=== PATIENT | female | born 1945 | race American Indian/Alaskan Native ===

== ENCOUNTER 2016-11-28 09:23 | Outpatient (CLI) | payer MEDICARE ==
--- NOTE | 2016-11-28 10:34 | Mammography Report ---
Screening mammogram: Routine views compared to prior studies dating back to 2013. There is an intermediate fibroglandular pattern bilaterally. There is a focal asymmetry in the anteromedial right breast. A somewhat thick linear asymmetry is identified in the medial left breast only in the CC projection. Neither of these is identified on prior exams. The remainder of the exam bilaterally is otherwise unchanged. CAD used. Impression: New bilateral asymmetries. Recommendation: Compression imaging bilaterally with ultrasound as needed. BI-RADS CATEGORY: 0 = Needs additional imaging evaluation ACR BI-RADS MAMMOGRAPHIC CODES: 0 = Needs additional imaging evaluation; 1 = Negative; 2 = Benign; 3 = Probably benign; 4 = Suspicious; 5 = Malignant; 6 = Known biopsy-proven malignancy COMMENT: 1. Dense breast tissue, i.e., adenosis, fibrocystic changes, etc., may obscure an underlying neoplasm. 2. Approximately 10% of cancers are not detected with mammography. 3. A negative mammography report should not delay biopsy if a clinically suspicious mass is present.
== END 2016-11-28 09:24 | disposition home or self-care (01) ==
LOC: MAMMO 09:23
PROVIDERS: ATTEND Obstetrics & Gynecology
DX: Z12.31 Encounter for screening mammogram for malignant neoplasm of breast (principal)
CPT/HCPCS: 77067; G0202

== ENCOUNTER 2017-02-06 10:19 | Outpatient (CLI) | payer MEDICARE ==
--- NOTE | 2017-02-12 10:02 | Mammography Report ---
RIGHT DIGITAL DIAGNOSTIC MAMMOGRAM : 02/06/17 10:19:00 CLINICAL: Recalled for asymmetry. COMPARISON:11/28/16 screening FINDINGS: ML and spot compression MLO and the views were performed and a lower inner focal asymmetry persists on all views. Ultrasound of the right breast demonstrated a solid oval irregular hypoechoic mass at 4 o'clock 2 cm from the nipple. It measures 8 x 4 x 4 mm and correlates with the mammographic density. It produces mild shadowing. IMPRESSION: A suspicious 8mm solid right breast mass at 4 o'clock 2 cm from the nipple. Recommend ultrasound guided needle core biopsy. BI-RADS CATEGORY: 4--Suspicious I discussed the findings and my recommendation of needle core biopsy of the right breast with the patient at the time of the examination. BI-RADS MAMMOGRAPHIC CODES: 0 = Needs additional imaging evaluation; 1 = Negative; 2 = Benign; 3 = Probably benign; 4 = Suspicious; 5 = Malignant; 6 = Known biopsy-proven malignancy COMMENT: 1. Dense breast tissue, i.e., adenosis, fibrocystic changes, etc., may obscure an underlying neoplasm. 2. Approximately 10% of cancers are not detected with mammography. 3. A negative mammography report should not delay biopsy if a clinically suspicious mass is present. COMMENT: Patient follow-up letters are generated via our [employer] application.
== END 2017-02-06 10:20 | disposition home or self-care (01) ==
LOC: MAMMO 10:19
PROVIDERS: ATTEND Obstetrics & Gynecology
DX: Z53.9 Procedure and treatment not carried out, unspecified reason (principal)
CPT/HCPCS: 76642; G0206

== ENCOUNTER 2017-03-24 07:21 | Outpatient (CLI) | payer MEDICARE ==
--- NOTE | 2017-03-24 09:53 | Ultrasound Report ---
VACUUM ASSISTED ULTRASOUND GUIDED NEEDLE CORE BIOPSY WITH CLIP PLACEMENT RIGHT BREAST: 03/24/17 07:21:00 CLINICAL: Right breast mass. COMPARISON :02/06/17 FINDINGS: The procedure was explained to the patient and informed consent was obtained. Ultrasound demonstrated the previously described solid hypoechoic mass at 5 o'clock at the edge of the areola. The skin was prepped with Betadine and anesthetized with 1% lidocaine. Vacuum-assisted needle core biopsy was performed through a small dermatotomy using ultrasound guidance, 2% lidocaine with epinephrine for deep anesthesia and a 10-gauge Mammotome biopsy probe. Multiple cores were obtained and placed in formalin. An 11-gauge Mammostar barbell shape clip was deployed within the mass. Hemostasis was achieved with minimal pressure and a sterile dressing was applied. The patient tolerated the procedure well and there were no apparent complications. A two view mammogram demonstrated concordant clip placement. The patient left the department in good condition and was given instructions for wound care and follow up. IMPRESSION: Uncomplicated vacuum-assisted ultrasound core biopsy and clip placement right breast.
--- NOTE | 2017-03-24 09:54 | Mammography Report ---
RIGHT DIGITAL DIAGNOSTIC MAMMOGRAM: 03/24/17 07:21:00 CLINICAL: For clip placement immediately status post ultrasound biopsy. COMPARISON:02/06/17 FINDINGS: A biopsy clip is now identified within the retroareolar mass at 5 o'clock. IMPRESSION: Concordant clip placement status post ultrasound biopsy. BI-RADS CATEGORY: 4--Suspicious Pathology pending.
== END 2017-03-24 07:22 | disposition home or self-care (01) ==
LOC: EDBD → SPVWC 07:21
PROVIDERS: ATTEND Obstetrics & Gynecology
DX: C50.311 Malignant neoplasm of lower-inner quadrant of right female breast (principal); Z17.0 Estrogen receptor positive status [ER+]
CPT/HCPCS: 88305; 88342; 88361

== ENCOUNTER 2017-04-17 09:24 | Outpatient (CLI) | payer MEDICARE ==
--- NOTE | 2017-04-17 15:54 | Mammography Report ---
BONE DEXA:04/17/17 09:24:00 CLINICAL: Postmenopausal. No comparison. TECHNIQUE: Two site bone DEXA performed on an Hologic scanner. FINDINGS: The average BMD of the lumbar spine L1-L4 is 1.050g/cm squared with a T-score of -0.9 and a Z-score of +1.7. The average BMD of the left hip is 0.916g/cm squared with a T-score of -0.7 and a Z-score of +0.5. The left femoral neck BMD is 0.656g/cm squared with a T score of -2.1 and a Z score of -0.5 IMPRESSION: 1. WHO classification: Normal with average fracture risk based on lumbar spine measurements. 2. WHO classification: Osteopenia with increased fracture risk based on left femoral neck measurements. RECOMMENDATION: Clinical correlation and routine screening. DEFINITIONS: BMD = Bone Mineral Density T-score = BMD related to mean peak bone mass of young adult (mean expressed in Standard Deviation) Z-score = Age matched BMD expressed in SD World Health Organization (WHO) Diagnostic Criteria Normal T-score > -1 SD Osteopenia T-score between -1 and -2.4 SD Osteoporosis T-score -2.5 SD or below NOTE: BMD is not the only risk factor for fracture. One should also consider factors such as the patient's age, risk of falling, previous osteoporotic fracture, family history of osteoporotic fractures, current smoker, and low body weight. Z-scores are not calculated if >80 years of age.
== END 2017-04-17 09:25 | disposition home or self-care (01) ==
LOC: EDBD → SPVWC 09:24
PROVIDERS: ATTEND Internal Medicine Hematology & Oncology
DX: M85.852 Other specified disorders of bone density and structure, left thigh (principal); C50.311 Malignant neoplasm of lower-inner quadrant of right female breast; Z78.0 Asymptomatic menopausal state
CPT/HCPCS: 77080

== ENCOUNTER 2017-04-22 06:18 | Day surgery (SDC) | payer MEDICARE ==
[2017-04-21 10:55] LABS: Basophils # (Auto) 0.1 K/mm3 (0.0-0.1); Eosinophils # (Auto) 0.1 K/mm3 (0.0-0.4); Eosinophils % (Auto) 1.6 % (0.0-4.3); Hematocrit 39.7 % (30.3-42.9); Hemoglobin 13.2 gm/dl (10.1-14.3); Lymphocytes # (Auto) 3.7 K/mm3 (1.2-5.4); Lymphocytes % (Auto) 42.5 % (13.4-35.0); Mean Corpuscular HGB Conc 33 % (30-34); Mean Corpuscular Hemoglobin 33 pg (28-32); Mean Corpuscular Volume 100 fl (79-97); Monocytes # (Auto) 0.6 K/mm3 (0.0-0.8); Platelet Count 297 K/mm3 (140-440); Red Blood Count 3.97 M/mm3 (3.65-5.03); Red Cell Distribution Width 14.7 % (13.2-15.2)
--- NOTE | 2017-04-21 11:01 | Anesthesia Consultation ---
Anesthesia Consult and Med Hx Date of service: 04/21/17 - Airway Anesthetic Teeth Evaluation: Edentulous ROM Head & Neck: Adequate Mental/Hyoid Distance: Adequate Mallampati Class: Class I Intubation Access Assessment: Good - Pulmonary Exam CTA: Yes - Cardiac Exam Cardiac Exam: RRR - Pre-Operative Health Status ASA Pre-Surgery Classification: ASA3 Proposed Anesthetic Plan: General - Pulmonary Hx Smoking: Yes (FORMER FOR OVER 20 YEARS, QUIT 2002) - Cardiovascular System Hx Hypertension: Yes (2012) - Central Nervous System Hx Psychiatric Problems: No - Endocrine Hx Non-Insulin Dependent Diabetes: Yes - Other Systems Hx Alcohol Use: Yes (OCCAS) Hx Substance Use: No Hx Cancer: Yes
[2017-04-21 11:14] LABS: BUN/Creatinine Ratio 10; Blood Urea Nitrogen 9 mg/dL (7-17); Calcium 9.8 mg/dL (8.4-10.2); Hemolysis Index 2
--- NOTE | 2017-04-21 11:22 | XRay Report ---
ROUTINE CHEST, TWO VIEWS: HISTORY: Preoperative evaluation. The trachea, heart, mediastinal contour, lung montez and bony thorax are unremarkable. IMPRESSION: No acute cardiopulmonary process identified.
[~2017-04-22 06:18] MED LIST: NACL 0.9% IR ONE
[2017-04-22] MEDS ORDERED: NACL BACTERIOSTATIC INFILTRATI ONE (06:44)
--- NOTE | 2017-04-22 07:17 | Anesthesia Day of Surgery ---
Anesthesia Day of Surgery - Day of Surgery Patient Examined: Yes Patient H&P Reviewed: Yes Patient is NPO: Yes
[2017-04-22] MEDS ORDERED: XYLOCAINE 1% 20 mL ONE (07:42)
[2017-04-22] MEDS ORDERED: PEPCID IV NR (08:00)
[2017-04-22] MEDS ORDERED: NACL 0.9% 1000 ML 1,000 ML IV SCH (08:00)
[2017-04-22] MEDS ORDERED: ANCEF/STERILE WATER 2 GM/20 ML IV NR (08:00)
[2017-04-22] MEDS ORDERED: VERSED IV NR (08:00)
[2017-04-22] MEDS ORDERED: SUBLIMAZE IV PRN (08:12)
[2017-04-22] MEDS ORDERED: ZOFRAN IV PRN (08:12)
[2017-04-22] MEDS ORDERED: DILAUDID IV PRN (08:12)
--- NOTE | 2017-04-22 08:22 | Mammography Report ---
Right breast needle localization: Mammographic grid technique utilized. The patient presents with a marker in the inferior breast. The area was localized. 1% lidocaine used for local anesthesia followed by introduction of a 3 cm Bronson needle inferiorly confirmed in position by mammography. The needle was replaced by a localizing wire with additional confirmation with mammography. No complication encountered.
[2017-04-22] MEDS ORDERED: MARCAINE 0.5% 30 ML INFILTRATI ONE (09:56)
--- NOTE | 2017-04-22 10:29 | Procedure Note ---
Date of procedure: 04/22/17 Pre-op diagnosis: rt. breast lesion Post-op diagnosis: same Procedure: needle loc. Findings: n/a Anesthesia: local Surgeon: RUBIN FOY Estimated blood loss: none Pathology: none Condition: stable (surgery)
[2017-04-22] MEDS ORDERED: ePHEDrine SULFATE ONE (10:45)
[2017-04-22] MEDS ORDERED: XYLOCAINE MPF 2% ONE (10:48)
[2017-04-22] MEDS ORDERED: SUBLIMAZE ONE (10:48)
[2017-04-22] MEDS ORDERED: DIPRIVAN 10 MG/ML IV ONE (10:49)
[2017-04-22] MEDS ORDERED: ZOFRAN ONE (10:50)
[2017-04-22] MEDS ORDERED: ZEMURON IV ONE (10:50)
[2017-04-22] MEDS ORDERED: DILAUDID ONE (10:50)
[2017-04-22] MEDS ORDERED: ROBINUL ONE (11:28)
[2017-04-22] MEDS ORDERED: NEOSTIGMINE ONE (11:28)
--- NOTE | 2017-04-22 11:41 | Mammography Report ---
Operative specimen mammogram: A single tissue specimen is submitted that includes the targeted marker and localizing wire.
[2017-04-22] MEDS ORDERED: NACL 0.9% IR ONE (11:48)
--- NOTE | 2017-04-22 12:16 | Operative Report ---
Operative Report Operative Report: Date of Service: April 22, 2017 Preoperative diagnosis: Right breast cancer of the lower inner quadrant Postoperative diagnosis: Same Procedure: Right needle localization partial mastectomy of the lower inner quadrant and SLNB Surgeon: Meli Mendoza MD Pantograph Engraver: Ashley Kingsley MD Anesthesia: General Findings: Right wire and clip present within radiograph specimen; 3 SLNs Complications: None EBL: Minimal Disposition: PACU in good condition Indications for operative procedure: This is a 71 year old lady with newly diagnosed right breast cancer of the lower inner quadrant, Stage I [id number] ER/ KS positive. Recommendations are to proceed with breast conservation. Patient wished to proceed with breast conservation. Procedure in detail: The patient was taken to radiology for wire placement for localization of known area of cancer. Patient was then taken to the operating room. Gen. anesthesia was administered. The right nipple was injected with radioisotope. The right breast and axilla were prepped and draped in the normal sterile operative fashion. The wire was identified. Timeout was performed. Gamma probe was inserted into the axilla. The area of hot spot was identified. A right axillary incision was made with a 15 blade knife with dissection taken down to the subcutaneous tissues. The axillary fascia was opened with the Bovie cautery. 3 SLNS were identified. All remaining counts were less than 10% of the highest count. Lymph nodes were sent to pathology for permanent processing. Hemostasis was obtained in the left axillary cavity. Axillary cavity was appropriately irrigated and suctioned. Hemostasis was noted. Axillary fascia was approximated and closed using interrupted 3-0 Vicryl and the skin brought together and closed using a running 4-0 Monocryl followed by skin affix. Attention was then taken towards the right breast. A caudal periareolar breast incision was made with a 15 blade knife and dissection taken down to subcutaneous tissues. First began raising of the superior flap with dissection take down to the pectoralis muscle, followed by raising of the medial flap, lateral flap and inferior flap with wire removed, with all flaps were taken down to the pectoralis muscle. The breast area of concern was appropriately removed posteriorly from the pectoralis muscle with the aid of the Bovie cautery. The wire was not encountered. Specimen was marked and then sent to pathology and radiology; radiograph specimen with wire and clip present. Breast cavity was irrigated and hemostasis was obtained. Then proceeded with oncoplastic closure given breast cavity defect. The posterior breast tissues were mobilized and then approximated with interrupted 3-0 Vicryl. The posterior deep breast tissues were approximated and closed using interrupted 3-0 Vicryl. The subcutaneous tissues were approximated and closed using interrupted 3-0 Vicryl followed by closing of the skin with a running 4-0 Monocryl and skin affix. The patient tolerated surgery very well and she was awaken from anesthesia without any complication and transported to PACU in good condition.
[2017-04-22 13:44] VITALS: BP 165/80
== END 2017-04-22 13:55 | disposition home or self-care (01) ==
LOC: OR 06:18 → EDBD 13:45 → OR 13:55
PROVIDERS: ATTEND Surgery
DX: C50.311 Malignant neoplasm of lower-inner quadrant of right female breast (principal); D05.11 Intraductal carcinoma in situ of right breast; I10 Essential (primary) hypertension; E11.9 Type 2 diabetes mellitus without complications; Z17.0 Estrogen receptor positive status [ER+]; Z98.890 Other specified postprocedural states; Z87.891 Personal history of nicotine dependence; Z88.6 Allergy status to analgesic agent
CPT/HCPCS: 19281; 19301; 36415; 38525; 71046; 76098; 78800; 80048; 82962; 85025; 88307; 88342; A9541; J0690; J1170; J2250; J2405; J2704; J2710; J3010; J7030; 88333

== ENCOUNTER 2017-05-20 05:59 | Day surgery (SDC) | payer MEDICARE ==
[2017-05-20] MEDS ORDERED: ANCEF/STERILE WATER 2 GM/20 ML IV NR (06:00)
[2017-05-20] MEDS ORDERED: NACL BACTERIOSTATIC INFILTRATI ONE (06:44)
--- NOTE | 2017-05-20 07:34 | Anesthesia Day of Surgery ---
Anesthesia Day of Surgery - Day of Surgery Patient Examined: Yes Patient H&P Reviewed: Yes Patient is NPO: Yes
--- NOTE | 2017-05-20 07:34 | Anesthesia Consultation ---
Anesthesia Consult and Med Hx Date of service: 05/20/17 - Airway Anesthetic Teeth Evaluation: Dentures ROM Head & Neck: Adequate Mental/Hyoid Distance: Adequate Mallampati Class: Class II Intubation Access Assessment: Good - Pulmonary Exam CTA: Yes - Cardiac Exam Cardiac Exam: No Murmur - Pre-Operative Health Status ASA Pre-Surgery Classification: ASA3 - Pulmonary Hx Smoking: Yes (STOPPED 2002) Hx Sleep Apnea: No (HOA PRE SCREEN LOW RISK) - Cardiovascular System Hx Hypertension: Yes (2012) - Central Nervous System Hx Psychiatric Problems: No - Endocrine Hx Non-Insulin Dependent Diabetes: Yes - Other Systems Hx Alcohol Use: Yes (OCCAS) Hx Substance Use: No Hx Cancer: No
[2017-05-20] MEDS ORDERED: SUBLIMAZE ONE (07:43)
[2017-05-20] MEDS ORDERED: XYLOCAINE CARDIAC IV ONE (07:43)
[2017-05-20] MEDS ORDERED: DIPRIVAN 10 MG/ML IV ONE (07:44)
[2017-05-20] MEDS ORDERED: NACL 0.9% 1000 ML 1,000 ML IV SCH (08:00)
[2017-05-20] MEDS ORDERED: PEPCID PO NR (08:00)
[2017-05-20] MEDS ORDERED: VERSED IV NR (08:00)
[2017-05-20] MEDS ORDERED: XYLOCAINE 1% 20 mL ONE (08:07)
[2017-05-20] MEDS ORDERED: MARCAINE 0.25% INFILTRATI ONE ×2 (08:07→08:26)
[2017-05-20] MEDS ORDERED: ePHEDrine SULFATE ONE (08:25)
[2017-05-20] MEDS ORDERED: XYLOCAINE 1% 20 mL INFILTRATI ONE (08:26)
[2017-05-20] MEDS ORDERED: WATER FOR IRRIG STERILE IR ONE (08:48)
[2017-05-20] MEDS ORDERED: ZOFRAN ONE (09:09)
[2017-05-20] MEDS ORDERED: NEO SYNEPHRINE/NS Syringe(OR USE) IV ONE (09:09)
[2017-05-20] MEDS ORDERED: DILAUDID IV PRN (09:23)
--- NOTE | 2017-05-20 09:23 | Short Stay Summary ---
Short Stay Documentation Date of service: 05/20/17 - History H&P: obtained from office - Allergies and Medications Current Medications: Allergies aspirin Allergy (Verified 04/14/17 15:39) Hives Home Medications Medication Instructions Recorded Confirmed Last Taken Type Diltiazem HCl [Diltiazem 24Hr ER] 120 mg PO DAILY 04/14/17 05/19/17 04/22/17 05: 00 History Losartan [Cozaar] 50 mg PO QDAY 04/14/17 05/19/17 04/22/17 05:00 History Pravastatin [Pravachol] 40 mg PO QHS 04/14/17 05/19/17 04/21/17 History metFORMIN [Glucophage] 500 mg PO QDAY 04/14/17 05/19/17 04/22/17 05:00 History HYDROcodone/APAP 5-325 [Molino 1 each PO Q6HR PRN #25 tablet 04/22/17 05/19/17 Unknown Rx 5/325] HYDROcodone/APAP 5-325 [Molino 1 each PO Q6HR PRN #20 tablet 05/20/17 Unknown Rx 5/325] Active Medications Cefazolin Sodium (Ancef/Sterile Water 2 Gm/20 Ml) 2 gm IV PREOP NR Stop: 05/20/17 23:59 Famotidine (Pepcid) 20 mg PO PREOP NR Stop: 05/20/17 15:00 Last Admin: 05/20/17 07:45 Dose: 20 mg Sodium Chloride (Nacl 0.9% 1000 Ml) 1,000 mls @ 100 mls/hr IV DIRECT SIOBHAN Last Admin: 05/20/17 06:50 Dose: 100 mls/hr Midazolam HCl (Versed) 2 mg IV PREOP NR Stop: 05/20/17 23:59 Last Admin: 05/20/17 07:45 Dose: 2 mg - Brief post op/procedure progress note Date of procedure: 05/20/17 Pre-op diagnosis: Right breast cancer of the lower inner quadrant, positive anterior margin Post-op diagnosis: same Procedure: Right breast margin revision Anesthesia: GETA Findings: Anterior margin revision Surgeon: LORIN DAVID Estimated blood loss: minimal Pathology: list (revised anterior margin) Specimen disposition: to lab Condition: stable - Disposition Condition at discharge: Good Disposition: DC- TO HOME OR SELFCARE Short Stay Discharge Plan Activity: other (no heavy lifting) Diet: regular Wound: other (keep incision clean and dry; may shower in 24 hours; do not rub or scrub incision; no baths, pools or lakes) Follow up with: BIANCA NICHOLS MD [Primary Care Provider] - 7 Days LORIN DAVID MD [Staff Physician] - 7 Days Prescriptions: HYDROcodone/APAP 5-325 [Molino 5/325] 1 each PO Q6HR PRN #20 tablet PRN Reason: Pain
--- NOTE | 2017-05-20 09:30 | Operative Report ---
Operative Report Operative Report: Date of Service: May 20, 2017 Preoperative diagnosis: Right breast cancer of the lower inner quadrant, positive anterior margin Postoperative diagnosis: Same Procedure: Right anterior margin revision Surgeon: Meli Mendoza M.D. Anesthesia: Gen. Complications: None Findings: Anterior margin revised Drains: None Estimated blood loss minimal Disposition: PACU in good condition Indications for operative procedure: This is a 72-year-old lady with newly diagnosed stage I right breast cancer of the lower inner quadrant. Patient recently underwent a right partial mastectomy with sentinel lymph node biopsy. Anterior margin of skin with 2.5 mm from DCIS and suspicious outer anterior margin close to DCIS. Additional slides obtained and findings of anterior margin less than 1 mm from DCIS. Recommendations were for right anterior margin revision. Patient wished to proceed with the above procedure. Procedure in detail: Patient was taken to the operating room and was laid supine. Gen. patient was administered. Right breast incision was noted. Right breast was prepped and drapped in the normal sterile operative fashion. An incision was made to include skin of prior incision with a 15 blade knife and dissection taken down to subcutaneous tissues and then down posteriorly to the pectoralis muscle. Aneterio margin was appropriately revised and marked and sent to pathology. Hemostasis was obtained. The breast cavity was anesthetized with 1% lidocaine mixed with quarter percent oMarcaine. She tolerated the procedure very well and was awakened from anesthesia without any complications and transported PACU in good condition.
[2017-05-20] MEDS ORDERED: NORCO 5/325 PO NR (09:46)
[2017-05-20] MEDS ORDERED: NORCO 5/325 ONE (09:47)
[2017-05-20 11:50] VITALS: BP 142/68
== END 2017-05-20 10:40 | disposition home or self-care (01) ==
LOC: OR 05:59
PROVIDERS: ATTEND Surgery
DX: C50.311 Malignant neoplasm of lower-inner quadrant of right female breast (principal); E11.9 Type 2 diabetes mellitus without complications; I10 Essential (primary) hypertension; Z87.891 Personal history of nicotine dependence; Z79.899 Other long term (current) drug therapy
CPT/HCPCS: 19301; 82962; 88307; J0690; J1170; J2001; J2250; J2370; J2405; J2704; J3010

== ENCOUNTER 2017-11-10 10:32 | Outpatient (CLI) | payer MEDICARE ==
--- NOTE | 2017-11-10 11:18 | Mammography Report ---
BILATERAL DIGITAL DIAGNOSTIC MAMMOGRAM WITH CAD : 11/10/17 10:32:00 CLINICAL: Breast cancer survivor status post right partial mastectomy and radiation therapy COMPARISON:11/28/16 FINDINGS: The right breast is heterogeneously dense and there are scattered fibroglandular densities in the left breast. Right central posterior benign scar. No mass, suspicious architectural distortion or suspicious calcifications. IMPRESSION: No mammographic evidence of malignancy. BI-RADS CATEGORY: 2 -- Benign RECOMMENDATION: Routine mammographic screening in one year. COMMENT: Patient follow-up letters are generated via our [employer] application.
== END 2017-11-10 10:33 | disposition home or self-care (01) ==
LOC: SPVWC 10:32
PROVIDERS: ATTEND Surgery
DX: C50.311 Malignant neoplasm of lower-inner quadrant of right female breast (principal); E78.00 Pure hypercholesterolemia, unspecified; I10 Essential (primary) hypertension; E11.9 Type 2 diabetes mellitus without complications; M19.90 Unspecified osteoarthritis, unspecified site; Z90.49 Acquired absence of other specified parts of digestive tract; Z90.12 Acquired absence of left breast and nipple; Z87.891 Personal history of nicotine dependence
CPT/HCPCS: 77066

== ENCOUNTER 2019-05-02 08:59 | Outpatient (CLI) | payer MEDICARE ==
--- NOTE | 2019-05-02 12:14 | Mammography Report ---
BONE DEXA CLINICAL: Post menopausal. COMPARISON: 04/17/2017 TECHNIQUE: 2 site bone DEXA performed on an Hologic scanner. FINDINGS: The average BMD of the lumbar spine L1-L4 is 1.086g/cm squared with a T score of -0.6 and a Z score o f +2.1. This compares to 1.050g/cm squared on the last exam and represents a +3.4 % change from the p revious baseline. The average BMD of the left hip is 0.903 g/cm squared with a T score of -0.8and a Z score of +0.5. Th is compares to 0.916 g/cm squared on the last exam and represents a -1.4 % change from the previous b aseline. The left femoral neck BMD is 0.681 g/cm squared with a T score of -1.9 and Z score of -0.3. IMPRESSION: 1. WHO classification: Normal with fracture risk based on spine measurements. 2. WHO classification Osteopenia with increased fracture risk based on left hip (femoral neck) measur ements. 3. A modest improvement in spine BMD and a modest decline in left hip BMD compared to the last exam. RECOMMENDATION: Clinical correlation and routine screening. Definitions: BMD equal bone mineral density T score = BMD related to peak bone mass of young adult (Delta expressed an standard deviation) Z score = age-matched BMD expressed in SD World health organization (WHO) diagnostic criteria Normal T score greater than equal to 1 standard deviation Osteopenia T score between -1 and -2.4 standard deviation Osteoporosis T score -2.5 standard deviation or below. Note: BMD is not the only risk factor for fracture; also consider factors such as the patient's age, risk of falling, previous osteoporotic fracture, family history of osteoporotic fractures, current sm oker and low body weight. Z scores are not calculated if greater than 80 years of age. Signer Name: Chad Watson MD Signed: 05/02/2019 12:10 PM Workstation Name: [id number]
== END 2019-05-02 09:00 | disposition home or self-care (01) ==
LOC: SPVWC 08:59
PROVIDERS: ATTEND Surgery Vascular Surgery
DX: M85.89 Other specified disorders of bone density and structure, multiple sites (principal)
CPT/HCPCS: 77080

== ENCOUNTER 2019-12-19 10:23 | Outpatient (CLI) | payer MEDICARE ==
[2019-12-19 11:13] LABS: Calcium 9.7 mg/dL (8.4-10.2)
== END 2019-12-19 10:24 | disposition home or self-care (01) ==
LOC: LAB 10:23
PROVIDERS: ATTEND Internal Medicine Nephrology
DX: I12.9 Hypertensive chronic kidney disease with stage 1 through stage 4 chronic kidney disease, or unspecified chronic kidney disease (principal); E08.29 Diabetes mellitus due to underlying condition with other diabetic kidney complication; N18.30 Chronic kidney disease, stage 3 unspecified; E87.1 Hypo-osmolality and hyponatremia; R31.9 Hematuria, unspecified; N27.0 Small kidney, unilateral; R60.9 Edema, unspecified; E83.52 Hypercalcemia
CPT/HCPCS: 36415; 80048

== ENCOUNTER 2019-12-27 10:08 | Outpatient (CLI) | payer MEDICARE, OTHER ==
--- NOTE | 2019-12-27 15:44 | Cat Scan Report ---
CT ABDOMEN AND PELVIS WITH CONTRAST INDICATION / CLINICAL INFORMATION: ABDOMINAL PAIN. TECHNIQUE: Axial CT images were obtained through the abdomen and pelvis before and after 100 cc Omni 300 IV cont r[address]. All CT scans at this location are performed using CT dose reduction for ALARA by means of auto mated exposure control. COMPARISON: Ultrasound abdomen 11/07/2015 FINDINGS: LOWER CHEST: Aortic valve calcification. Multivessel coronary artery atherosclerotic calcification. HEPATOBILIARY: No significant abnormality. PANCREAS: No significant abnormality. SPLEEN: No significant abnormality. ADRENALS: No significant abnormality. GENITOURINARY: Atrophic left kidney with multiple small renal cystic lesions some of which have atten uation greater than expected for simple cysts. Mild left perinephric fluid stranding. Largest cyst me asures up to 2.1 cm at the inferior pole. Right kidney demonstrates a 2 mm nonobstructing nephrolith. Ureters and bladder demonstrate no significant abnormality. GASTROINTESTINAL/MESENTERY: Appendix demonstrates no significant abnormality. No bowel obstruction or inflammation is identified. No free air or significant free fluid mild mesenteric haziness is presen t. RETROPERITONEUM: No significant adenopathy. REPRODUCTIVE ORGANS: 2.5 cm left adnexal cyst. VASCULAR: Severe mixed density atherosclerotic calcification without acute abnormality. Extensive low -density mural thrombus throughout the aorta and iliac vasculature. Likely hemodynamically significan t stenoses at the ostia of the celiac artery, SMA, and common hepatic artery (direct origin from the aorta). No evidence of ischemic bowel. Focal saccular outpouching of the infrarenal abdominal aorta p rojecting to the left and measuring approximately 1.8 x 1.2 cm. Underlying fusiform ectasia of the in frarenal abdominal aorta measuring up to 2.8 cm. SKELETAL SYSTEM: Diffuse degenerative change with mild anterolisthesis of L4 on L5. ADDITIONAL FINDINGS: None. IMPRESSION: 1. No acute abdominopelvic abnormality. 2. Extensive mixed density atherosclerosis with likely hemodynamically significant stenoses at the or igin of the SMA, celiac artery, and common hepatic artery as described above. 3. Atrophic left kidney with multiple small cystic lesions some of which measure greater attenuation than expected for a simple cyst. Consider further evaluation with renal ultrasound. 4. Small saccular outpouching of the infrarenal abdominal aorta. Signer Name: Camron Pelaez MD Signed: 12/27/2019 3:40 PM Workstation Name: [id number]
== END 2019-12-27 10:09 | disposition home or self-care (01) ==
LOC: CT 10:08
PROVIDERS: ATTEND Urology
DX: N28.1 Cyst of kidney, acquired (principal); N26.1 Atrophy of kidney (terminal); I25.10 Atherosclerotic heart disease of native coronary artery without angina pectoris; I70.0 Atherosclerosis of aorta; M47.816 Spondylosis without myelopathy or radiculopathy, lumbar region
CPT/HCPCS: 36415; 74170; 82565; 84520; Q9967

== ENCOUNTER 2020-11-21 11:57 | Outpatient (CLI) | payer MEDICARE ==
--- NOTE | 2020-11-21 15:16 | Mammography Report ---
DIGITAL SCREENING MAMMOGRAM WITH CAD, 11/21/2020 CLINICAL INFORMATION / INDICATION: Routine screening mammography. SCREENING MAMMO TECHNIQUE: Digital bilateral 2D mammography was obtained in the craniocaudal and mediolateral obliqu e projections. This examination was interpreted with the benefit of Computer-Aided Detection analysis . COMPARISON: 11/21/2019, 11/09/2018 FINDINGS: Breast Density: There are scattered areas of fibroglandular density. No dominant mass, suspicious calcifications, or architectural distortion in either breast. Postlumpectomy changes are noted on the right. IMPRESSION: No mammographic evidence of malignancy. Follow up recommendation: Routine yearly BI-RADS Category 2: Benign. A "normal" or negative report should not discourage follow up or biopsy of a clinically significant f inding. A written summary of these findings will be mailed to the patient. The patient will be entered into a mammography reporting system which will generate a reminder letter for the patient's next appointmen t at the appropriate interval. The [employer] recommends yearly mammograms starting at age 40 and continuing as l aden as a woman is in good health. Breast MRI is recommended for women with an approximate 20-25% or greater lifetime risk of breast cancer, including women with a strong family history of breast or ova kwesi cancer or who have been treated for Hodgkin's disease. Signer Name: Sergey Fregoso MD Signed: 11/21/2020 3:11 PM Workstation Name: [employer]
== END 2020-11-21 11:58 | disposition home or self-care (01) ==
LOC: SPVWC 11:57
PROVIDERS: ATTEND Surgery
DX: Z12.31 Encounter for screening mammogram for malignant neoplasm of breast (principal)
CPT/HCPCS: 77067

== ENCOUNTER 2021-05-29 08:53 | Outpatient (CLI) | payer MEDICARE ==
--- NOTE | 2021-05-29 11:15 | Mammography Report ---
DEXA BONE DENSITY SCAN INDICATION / CLINICAL INFORMATION: M85.89 OTHER DISORDER OF BONE DENSITY AND STRUCTURE, MULTIPLE SIT. 76 years Female COMPARISON: 05/02/2019 LUMBAR SPINE, L1-L4: - Bone mineral density (BMD) = 1.051 g/cm2. - T-score = -0.9 - Change (%) since most recent prior (if available): Decreased 3.2 RIGHT HIP not performed. LEFT HIP, NECK : - Bone mineral density (BMD) = 0.781 g/cm2. - T-score = -1.2 - Change (%) since most recent prior (if available): Decreased 1.0 IMPRESSION: 1. WHO Classification: Osteopenia. Fracture Risk: Increased. Note: 10-Year Fracture Risk (FRAX) not reported. This DEXA unit lacks FRAX functionality. BMD Reporting Guidelines (ISCD, 2015) BMD Reporting in Postmenopausal Women and in Men Age 50 and Older - T-scores are preferred. - The WHO densitometric classification is applicable. BMD Reporting in Females Prior to Menopause and in Males Younger Than Age 50 - Z-scores, not T-scores, are preferred. This is particularly important in children. - A Z-score of -2.0 or lower is defined as below the expected range for age, and a Z-score above -2.0 is within the expected range for age. - Osteoporosis cannot be diagnosed in men under age 50 on the basis of BMD alone. - The WHO diagnostic criteria may be applied to women in the menopausal transition. http://www.iscd.org/official-positions/1437-ydlm-ovkivcgg-positions-adult/ Signer Name: Joe Velazquez MD Signed: 05/29/2021 11:10 AM Workstation Name: [id number]
== END 2021-05-29 08:54 | disposition home or self-care (01) ==
LOC: SPVWC 08:53
PROVIDERS: ATTEND Internal Medicine Hematology & Oncology
DX: M85.88 Other specified disorders of bone density and structure, other site (principal)
CPT/HCPCS: 77080

== ENCOUNTER 2021-09-11 11:09 | Inpatient (IN) | payer MEDICARE ==
--- NOTE | 2021-09-11 12:42 | Emergency Department Report ---
ED General Adult HPI - General Chief complaint: Recheck/Abnormal Lab/Rx Stated complaint: SODIUM DEF/IV REQUIRED PUI?: No Source: patient Mode of arrival: Ambulatory Limitations: No Limitations - History of Present Illness Initial comments: Pt is a pleasant 76 yo that comes to ER p being called by her PCP Dr Nichols. She had routine lab work that indicated low Na. So he told her to come here. No cp NO sob no confusion/falls Pt young for stated age; ambulatory in NAD; accompanied by her son. Pt does have hx of hyponatremia in 130's -: Gradual Severity scale (0 -10): 0 Improves with: none Worsens with: none Associated Symptoms: denies other symptoms. denies: confusion, chest pain, cough, diaphoresis, fever/chills, headaches, loss of appetite, malaise, nausea/vomiting, rash, seizure, shortness of breath, syncope, weakness Treatments Prior to Arrival: none - Related Data Home Medications Medication Instructions Recorded Confirmed Last Taken Losartan [Cozaar] 50 mg PO QDAY 04/14/17 05/20/17 05/20/17 Pravastatin [Pravachol] 40 mg PO QHS 04/14/17 05/20/17 05/20/17 dilTIAZem HCl [Diltiazem 24Hr ER] 120 mg PO DAILY 04/14/17 05/20/17 05/19/17 metFORMIN [Glucophage] 500 mg PO QDAY 04/14/17 05/20/17 05/19/17 Previous Rx's Medication Instructions Recorded Last Taken Type HYDROcodone/APAP 5-325 [[place] 1 each PO Q6HR PRN #25 tablet 04/22/17 Unknown Rx 5/325] HYDROcodone/APAP 5-325 [[place] 1 each PO Q6HR PRN #20 tablet 05/20/17 Unknown Rx 5/325] Allergies Allergy/AdvReac Type Severity Reaction Status Date / Time aspirin Allergy Hives Verified 09/11/21 11:46 ED Review of Systems ROS: Stated complaint: SODIUM DEF/IV REQUIRED Other details as noted in HPI Comment: All other systems reviewed and negative ED Past Medical Hx - Past Medical History Previous Medical History?: Yes Hx Hypertension: Yes (2012) Hx Diabetes: Yes Hx Arthritis: Yes Hx HIV: No Additional medical history: hypona - Surgical History Past Surgical History?: Yes Hx Breast Surgery: Yes (BX) - Family History Family history: no significant - Social History Smoking Status: Former Smoker - Medications Home Medications: Home Medications Medication Instructions Recorded Confirmed Last Taken Type Losartan [Cozaar] 50 mg PO QDAY 04/14/17 05/20/17 05/20/17 History Pravastatin [Pravachol] 40 mg PO QHS 04/14/17 05/20/17 05/20/17 History dilTIAZem HCl [Diltiazem 24Hr ER] 120 mg PO DAILY 04/14/17 05/20/17 05/19/17 History metFORMIN [Glucophage] 500 mg PO QDAY 04/14/17 05/20/17 05/19/17 History HYDROcodone/APAP 5-325 [[place] 1 each PO Q6HR PRN #25 tablet 04/22/17 05/19/17 Unknown Rx 5/325] HYDROcodone/APAP 5-325 [[place] 1 each PO Q6HR PRN #20 tablet 05/20/17 Unknown Rx 5/325] ED Physical Exam - General Limitations: No Limitations General appearance: alert, in no apparent distress - Head Head exam: Present: atraumatic, normocephalic - Eye Eye exam: Present: normal appearance, PERRL - ENT ENT exam: Present: mucous membranes moist - Neck Neck exam: Present: normal inspection - Respiratory Respiratory exam: Present: normal lung sounds bilaterally. Absent: respiratory distress - Cardiovascular Cardiovascular Exam: Present: regular rate, normal rhythm. Absent: systolic murmur, diastolic murmur, rubs, gallop - GI/Abdominal GI/Abdominal exam: Present: soft, normal bowel sounds - Extremities Exam Extremities exam: Present: normal inspection - Back Exam Back exam: Present: normal inspection - Neurological Exam Neurological exam: Present: alert, oriented X3 - Psychiatric Psychiatric exam: Present: normal affect, normal mood - Skin Skin exam: Present: warm, dry, intact, normal color. Absent: rash ED Course Vital Signs 09/11/21 09/11/21 11:43 11:47 Temperature 98.3 F 98.3 F Pulse Rate 58 L 58 L Respiratory 18 18 Rate Blood Pressure 156/76 156/76 [Left] O2 Sat by Pulse 100 Oximetry ED Medical Decision Making - Lab Data Result diagrams: 09/11/21 12:21 09/11/21 12:21 - EKG Data -: EKG Interpreted by Ri - Radiology Data Radiology results: pending - Medical Decision Making Labs 09/11/21 09/11/21 12:21 12:21 WBC 5.3 RBC 3.95 Hgb 13.1 Hct 38.6 MCV 98 H MCH 33 H MCHC 34 RDW 14.1 Plt Count 256 Sodium 117 L* Potassium 4.2 Chloride 81.6 L Carbon Dioxide 25 Anion Gap 14 BUN 7 Creatinine 1.0 Estimated GFR > 60 BUN/Creatinine Ratio 7 Glucose 99 Calcium 9.0 Total Bilirubin 0.60 AST 17 ALT 9 Alkaline Phosphatase 65 Total Protein 7.2 Albumin 4.4 Albumin/Globulin Ratio 1.6 Vital Signs 09/11/21 09/11/21 11:43 11:47 Temperature 98.3 F 98.3 F Pulse Rate 58 L 58 L Respiratory 18 18 Rate Blood Pressure 156/76 156/76 [Left] O2 Sat by Pulse 100 Oximetry Labs noted- euvolemia on exam VSS Staffed with Dr Dick- will admit for slow Na correction. Pt and family updated; additional orders placed Staffed with Dr Brown Pt being admitted to [facility] - Differential Diagnosis hypo na Critical care attestation.: If time is entered above; I have spent that time in minutes in the direct care of this critically ill patient, excluding procedure time. ED Disposition Clinical Impression: Hyponatremia Disposition: 01 HOME / SELF CARE / HOMELESS Is pt being admited?: Yes Does the pt Need Aspirin: No Condition: Stable Referrals: BIANCA NICHOLS MD [Primary Care Provider] - 3-5 Days Time of Disposition: 14:57
[2021-09-11 13:53] LABS: Hematocrit 38.6 % (30.3-42.9); Hemoglobin 13.1 gm/dl (10.1-14.3); Mean Corpuscular HGB Conc 34 % (30-34); Mean Corpuscular Volume 98 fl (79-97); Platelet Count 256 K/mm3 (140-440); Red Blood Count 3.95 M/mm3 (3.65-5.03); Red Cell Distribution Width 14.1 % (13.2-15.2)
[2021-09-11 14:12] LABS: Alanine Aminotransferase 9 units/L (7-56); Albumin 4.4 g/dL (3.9-5); BUN/Creatinine Ratio 7; Blood Urea Nitrogen 7 mg/dL (7-17); Hemolysis Index 20
--- NOTE | 2021-09-11 15:46 | XRay Report ---
CHEST 2 VIEWS INDICATION / CLINICAL INFORMATION: sob. COMPARISON: 04/21/2017 FINDINGS: SUPPORT DEVICES: None. HEART / MEDIASTINUM: No significant abnormality. LUNGS / PLEURA: No significant pulmonary or pleural abnormality. No pneumothorax. ADDITIONAL FINDINGS: No significant additional findings. IMPRESSION: 1. No acute findings. Signer Name: Joe Velazquez MD Signed: 09/11/2021 3:41 PM Workstation Name: [id number]
--- NOTE | 2021-09-11 20:08 | History and Physical Report ---
History of Present Illness Date of examination: 09/11/21 Date of admission: 09/11/2021 Chief complaint: Generalized weakness History of present illness: 76-year-old female with history of hypertension, hyperlipidemia and T2DM comes in for generalized weakness 3 to 4 days. Patient has not been well postop, following low Solu-Medrol. Patient was normal however because of oral Lasix. Patient is not vomiting. No abdominal pain. No diarrhea. Her baseline sodium was 130. No exacerbating or relieving factors. No fever or chills. - Past Medical History --Previous Medical History?: Yes --Hypertension: Yes (2012) --Diabetes: Yes --Arthritis: Yes --Additional medical history: hypona - Surgical History --Past Surgical History?: Yes --Breast Surgery: Yes () - Family History --Family history: no significant - Social History --Smoking Status: Former Smoker - Medications Home Medications: Home Medications Medication Instructions Recorded Confirmed Last Taken Type Losartan [Cozaar] 50 mg PO QDAY 04/14/17 05/20/17 05/20/17 History Pravastatin [Pravachol] 40 mg PO QHS 04/14/17 05/20/17 05/20/17 History dilTIAZem HCl [Diltiazem 24Hr ER] 120 mg PO DAILY 04/14/17 05/20/17 05/19/17 History metFORMIN [Glucophage] 500 mg PO QDAY 04/14/17 05/20/17 05/19/17 History HYDROcodone/APAP 5-325 [[place] 1 each PO Q6HR PRN #25 tablet 04/22/17 05/19/17 Unknown Rx 5/325] HYDROcodone/APAP 5-325 [[place] 1 each PO Q6HR PRN #20 tablet 05/20/17 Unknown Rx 5/325] Review of Systems ROS: Constitutional generalized weakness HEENT no sore throat no post nasal drip no diplopia Neck no neck stiffness no lymph gland enlargement Chest and lungs no shortness of breath cough or wheezing CVS no chest pain no diaphoresis no palpitations GI no nausea no vomiting no diarrhea Genitourinary system no dysuria no flank pain Musculoskeletal system no muscle pains no joint pains [employer]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 no 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 Skin no rash no itching Psychiatric no depression no homicidal or suicidal tendencies Hematologic no lymphedema or bruising Endocrine no polydipsia no polyuria no cold intolerance no heat intolerance Medications and Allergies Allergies Allergy/AdvReac Type Severity Reaction Status Date / Time aspirin Allergy Hives Verified 09/11/21 11:46 Home Medications Medication Instructions Recorded Confirmed Last Taken Type Losartan [Cozaar] 50 mg PO QDAY 04/14/17 05/20/17 05/20/17 History Pravastatin [Pravachol] 40 mg PO QHS 04/14/17 09/12/21 05/20/17 History dilTIAZem HCl [Diltiazem 24Hr ER] 120 mg PO DAILY 04/14/17 09/12/21 05/19/17 History metFORMIN [Glucophage] 500 mg PO BID 04/14/17 09/12/21 05/19/17 History HYDROcodone/APAP 5-325 [[place] 1 each PO Q6HR PRN #25 tablet 04/22/17 05/19/17 Unknown Rx 5/325] HYDROcodone/APAP 5-325 [[place] 1 each PO Q6HR PRN #20 tablet 05/20/17 Unknown Rx 5/325] Anastrozole [Arimidex] 1 mg PO DAILY 09/12/21 09/12/21 Unknown History Metoprolol Xl [Metoprolol 50 mg PO BID 09/12/21 09/12/21 Unknown History SUCCINATE ER TAB] hydrALAZINE [Apresoline TAB] 25 mg PO BID 09/12/21 09/12/21 Unknown History Exam - Constitutional Vitals: Temp Pulse Resp BP Pulse Ox 98.3 F 58 L 18 156/76 100 09/11/21 11:47 09/11/21 11:47 09/11/21 11:47 09/11/21 11:47 09/11/21 11:43 General appearance: Present: no acute distress, well-nourished - EENT Eyes: Present: PERRL ENT: hearing intact, clear oral mucosa - Neck Neck: Present: supple, normal ROM - Respiratory Respiratory effort: normal Respiratory: bilateral: CTA - Cardiovascular Heart rate: 76 Rhythm: regular Heart Sounds: Present: S1 & S2. Absent: rub, click - Extremities Extremities: pulses symmetrical, No edema Peripheral Pulses: within normal limits - Abdominal General gastrointestinal: Present: soft, non-tender, non-distended, normal bowel sounds Female genitourinary: Present: normal - Integumentary Integumentary: Present: clear, warm, dry - Musculoskeletal Musculoskeletal: gait normal, strength equal bilaterally - Psychiatric Psychiatric: appropriate mood/affect, intact judgment & insight - Neurologic Neurologic: CNII-XII intact, moves all extremities Results - Labs CBC & Chem 7: 09/11/21 12:21 09/11/21 12:21 Labs: Laboratory Last Values WBC 5.3 K/mm3 (4.5-11.0) 09/11/21 12:21 RBC 3.95 M/mm3 (3.65-5.03) 09/11/21 12:21 Hgb 13.1 gm/dl (10.1-14.3) 09/11/21 12:21 Hct 38.6 % (30.3-42.9) 09/11/21 12:21 MCV 98 fl (79-97) H 09/11/21 12:21 MCH 33 pg (28-32) H 09/11/21 12:21 MCHC 34 % (30-34) 09/11/21 12:21 RDW 14.1 % (13.2-15.2) 09/11/21 12:21 Plt Count 256 K/mm3 (140-440) 09/11/21 12:21 Sodium 117 mmol/L (137-145) L* 09/11/21 12:21 Potassium 4.2 mmol/L (3.6-5.0) 09/11/21 12:21 Chloride 81.6 mmol/L (98-107) L 09/11/21 12:21 Carbon Dioxide 25 mmol/L (22-30) 09/11/21 12:21 Anion Gap 14 mmol/L 09/11/21 12:21 BUN 7 mg/dL (7-17) 09/11/21 12:21 Creatinine 1.0 mg/dL (0.6-1.2) 09/11/21 12:21 Estimated GFR > 60 ml/min 09/11/21 12:21 BUN/Creatinine Ratio 7 % 09/11/21 12:21 Glucose 99 mg/dL (65-100) 09/11/21 12:21 Calcium 9.0 mg/dL (8.4-10.2) 09/11/21 12:21 Total Bilirubin 0.60 mg/dL (0.1-1.2) 09/11/21 12:21 AST 17 units/L (5-40) 09/11/21 12:21 ALT 9 units/L (7-56) 09/11/21 12:21 Alkaline Phosphatase 65 units/L (35-129) 09/11/21 12:21 Total Protein 7.2 g/dL (6.3-8.2) 09/11/21 12:21 Albumin 4.4 g/dL (3.9-5) 09/11/21 12:21 Albumin/Globulin Ratio 1.6 % 09/11/21 12:21 Short CBC 09/11/21 Range/Units 12:21 WBC 5.3 (4.5-11.0) K/mm3 Hgb 13.1 (10.1-14.3) gm/dl Hct 38.6 (30.3-42.9) % Plt Count 256 (140-440) K/mm3 BMP 09/11/21 12:21 Sodium 117 L* Potassium 4.2 Chloride 81.6 L Carbon Dioxide 25 BUN 7 Creatinine 1.0 Glucose 99 Calcium 9.0 Liver Function 09/11/21 Range/Units 12:21 Total Bilirubin 0.60 (0.1-1.2) mg/dL AST 17 (5-40) units/L ALT 9 (7-56) units/L Alkaline Phosphatase 65 (35-129) units/L Albumin 4.4 (3.9-5) g/dL - Imaging and Cardiology Chest x-ray: report reviewed (No acute findings) Assessment and Plan Advance Directives: Yes (Full code) - Patient Problems (1) Hyponatremia Current Visit: Yes Status: Acute Plan to address problem: Etiology unclear SIADH in the differential diagnosis Nephrology consult requested Urine osmolarity Serum osmolarity Nephrology consult requested IV normal saline for now (2) Hypertension Current Visit: Yes Status: Chronic Qualifiers: Hypertension type: primary hypertension Qualified Code(s): I10 - Essential (primary) hypertension Plan to address problem: Continue home antihypertensives and adjust medications (3) T2DM (type 2 diabetes mellitus) Current Visit: Yes Status: Chronic Qualifiers: Diabetes mellitus half-way insulin use: without long term care phlebotomist use Plan to address problem: Continue metformin and coverage with sliding scale--Humalog Check hemoglobin A1c (4) Hyperlipidemia Current Visit: Yes Status: Chronic Qualifiers: Hyperlipidemia type: mixed hyperlipidemia Qualified Code(s): E78.2 - Mixed hyperlipidemia Plan to address problem: Continue statins (5) DVT prophylaxis Current Visit: Yes Status: Acute Plan to address problem: On heparin GI prophylaxis (6) Advance care planning Current Visit: Yes Status: Acute Plan to address problem: Disease education conducted care plan discussed, diagnosis discussed and prognosis discussed. Patient acknowledged understanding with care plan +30 minutes.
[2021-09-11] MEDS ORDERED: MORPHINE 2 MG/1 ML INJ IV PRN (20:12)
[2021-09-11] MEDS ORDERED: HYDROmorphone 0.5 MG/0.5 ML INJ IV PRN (20:12)
[2021-09-11] MEDS ORDERED: ONDANSETRON 4 MG/2 ML INJ IV PRN (20:12)
[2021-09-11] MEDS ORDERED: METOCLOPRAMIDE 10 MG/2 ML INJ IV PRN (20:12)
[2021-09-11] MEDS: HEPARIN 5,000 UNIT/1 ML VIAL SUB-Q SCH (21:37)
[2021-09-11] MEDS: LOSARTAN 50 MG TAB PO SCH (21:40)
[2021-09-11] MEDS: PRAVASTATIN 40 MG TAB PO SCH (21:42)
[2021-09-11] MEDS: dilTIAZem CD 120 MG CAP PO SCH (21:42)
[2021-09-11 23:20] LABS: Bilirubin,Urine Negative (Negative); Color,Urine Colorless (Yellow)
[2021-09-11 23:21] LABS: Blood,Urine Moderate (Negative); PH,Urine 7.5 (5.0-7.0); Urobilinogen,Urine 0.2 mg/dL (<2.0)
[2021-09-11 23:22] LABS: Bacteria,Urine 1+ /HPF (Negative)
[2021-09-11 23:51] LABS: Creatinine,Urine 84.4 mg/dL (0.1-20.0)
[2021-09-12] MEDS: SODIUM CHLORIDE 0.9% 1000 ML 1,000 ML IV SCH ×3 (01:03→21:22)
[2021-09-12 07:49] LABS: Basophils # (Auto) 0.1 K/mm3 (0.0-0.1); Eosinophils # (Auto) 0.1 K/mm3 (0.0-0.4); Eosinophils % (Auto) 1.6 % (0.0-4.3); Hematocrit 33.9 % (30.3-42.9); Hemoglobin 11.7 gm/dl (10.1-14.3); Lymphocytes # (Auto) 3.2 K/mm3 (1.2-5.4); Lymphocytes % (Auto) 50.2 % (13.4-35.0); Mean Corpuscular HGB Conc 35 % (30-34); Mean Corpuscular Volume 97 fl (79-97); Monocytes # (Auto) 0.7 K/mm3 (0.0-0.8); Monocytes % (Auto) 11.5 % (0.0-7.3); Platelet Count 221 K/mm3 (140-440); Red Blood Count 3.49 M/mm3 (3.65-5.03); Red Cell Distribution Width 14.1 % (13.2-15.2)
[2021-09-12 08:11] LABS: Alanine Aminotransferase 9 units/L (7-56); Albumin 3.8 g/dL (3.9-5); BUN/Creatinine Ratio 9; Blood Urea Nitrogen 7 mg/dL (7-17); Calcium 8.3 mg/dL (8.4-10.2); Hemolysis Index 8
[2021-09-12] MEDS: LOSARTAN 50 MG TAB PO SCH (09:02)
[2021-09-12] MEDS: HEPARIN 5,000 UNIT/1 ML VIAL SUB-Q SCH ×2 (09:02→21:23)
[2021-09-12] MEDS: dilTIAZem CD 120 MG CAP PO SCH (09:03)
--- NOTE | 2021-09-12 09:29 | Consultation ---
History of Present Illness - Reason for Consult Consult date: 09/12/21 hyponatremia Requesting physician: JOSE OCAMPO - History of Present Illness Mrs. Anand is a 76-year-old -Citizen Of [place] female with past medical history significant for hypertension, diabetes and history of breast cancer was sent to the hospital for hyponatremia. Patient states that she does have knowledge of hyponatremia. States that she follows up with Dr. Koehler. Patient states that she used to drink about 80 ounces of water per day. However recently she has been told to cut back to 40 ounces per day. Patient does complain of some nausea but no vomiting. No diarrhea. Denies any shortness of breath. 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 She however does have a history of breast cancer. Denies initiation of any new medication. Past History Past Medical History: diabetes, hypertension, other (History of breast cancer) Social history: no significant social history Family history: no significant family history Medications and Allergies Allergies Allergy/AdvReac Type Severity Reaction Status Date / Time aspirin Allergy Hives Verified 09/11/21 11:46 Home Medications Medication Instructions Recorded Confirmed Last Taken Type Losartan [Cozaar] 50 mg PO QDAY 04/14/17 05/20/17 05/20/17 History Pravastatin [Pravachol] 40 mg PO QHS 04/14/17 09/12/21 05/20/17 History dilTIAZem HCl [Diltiazem 24Hr ER] 120 mg PO DAILY 04/14/17 09/12/21 05/19/17 History metFORMIN [Glucophage] 500 mg PO BID 04/14/17 09/12/21 05/19/17 History HYDROcodone/APAP 5-325 [[place] 1 each PO Q6HR PRN #25 tablet 04/22/17 05/19/17 Unknown Rx 5/325] HYDROcodone/APAP 5-325 [[place] 1 each PO Q6HR PRN #20 tablet 05/20/17 Unknown Rx 5/325] Anastrozole [Arimidex] 1 mg PO DAILY 09/12/21 09/12/21 Unknown History Metoprolol Xl [Metoprolol 50 mg PO BID 09/12/21 09/12/21 Unknown History SUCCINATE ER TAB] hydrALAZINE [Apresoline TAB] 25 mg PO BID 09/12/21 09/12/21 Unknown History Active Meds: Active Medications Acetaminophen (Acetaminophen 325 Mg Tab) 650 mg PO Q4H PRN PRN Reason: Pain MILD(1-3)/Fever >100.5/HERRERA Diltiazem HCl (Diltiazem Cd 120 Mg Cap) 120 mg PO DAILY [facility] Last Admin: 09/12/21 09:03 Dose: 120 mg Heparin Sodium (Porcine) (Heparin 5,000 Unit/1 Ml Vial) 5,000 unit SUB-Q Q12HR [facility] Last Admin: 09/12/21 09:02 Dose: 5,000 unit Hydromorphone HCl (Hydromorphone 0.5 Mg/0.5 Ml Inj) 0.5 mg IV Q3H PRN PRN Reason: Pain , Severe (7-10) Sodium Chloride (Nacl 0.9% 1000 Ml) 1,000 mls @ 100 mls/hr IV DIRECT [facility] Last Admin: 09/12/21 01:03 Dose: 100 mls/hr Losartan Potassium (Losartan 50 Mg Tab) 50 mg PO QDAY [facility] Last Admin: 09/12/21 09:02 Dose: 50 mg Metoclopramide HCl (Metoclopramide 10 Mg/2 Ml Inj) 10 mg IV Q6H PRN PRN Reason: Nausea And Vomiting Morphine Sulfate (Morphine 2 Mg/1 Ml Inj) 2 mg IV Q4H PRN PRN Reason: Pain, Moderate (4-6) Ondansetron HCl (Ondansetron 4 Mg/2 Ml Inj) 4 mg IV Q3H PRN PRN Reason: Nausea And Vomiting Pravastatin Sodium (Pravastatin 40 Mg Tab) 40 mg PO QHS [facility] Last Admin: 09/11/21 21:42 Dose: 40 mg Sodium Chloride (Sodium Chloride 0.9% 10 Ml Flush Syringe) 10 ml IV BID [facility] Last Admin: 09/12/21 09:03 Dose: 10 ml Sodium Chloride (Sodium Chloride 0.9% 10 Ml Flush Syringe) 10 ml IV PRN PRN PRN Reason: LINE FLUSH Review of Systems All systems: negative (Negative except as noted above) Exam - Vital Signs Vital signs: Vital Signs Temp Pulse Resp BP Pulse Ox 98.3 F 58 L 18 156/76 100 09/11/21 11:43 09/11/21 11:43 09/11/21 11:43 09/11/21 11:43 09/11/21 11:43 - General Appearance General appearance: well-developed, well-nourished, appears stated age EENT: PERRL, mucous membranes moist Neck: Present: neck supple, trachea midline. Absent: JVD/HJR, Masses Respiratory: Clear to Ascultation Heart: regular, normal heart rate, S1S2, no murmurs Gastrointestinal: Present: normal, normoactive bowel sounds Integumentary: other (No edema) Results - Lab Results 09/12/21 07:12 09/12/21 07:12 Most recent lab results Calcium 8.3 mg/dL (8.4-10.2) L 09/12/21 07:12 Urine Creatinine 84.4 mg/dL (0.1-20.0) H 09/11/21 23:02 Assessment and Plan Impression * Hyponatremia * Hypertension * Diabetes * History of breast cancer Recommendations * Patient is clinically euvolemic. Suspect a possible component of SIADH contributing to her hyponatremia. Need to consider component of volume depletion as well * Work-up for hyponatremia as ordered * Continue isotonic fluid for now * Avoid medications that would aggravate her hyponatremia * Monitor fluid status and electrolytes closely * Thank you very much for the consultation. Shall follow along with you
[2021-09-12 12:29] LABS: BUN/Creatinine Ratio 9; Blood Urea Nitrogen 7 mg/dL (7-17); Hemolysis Index 1
--- NOTE | 2021-09-12 14:36 | Progress Note ---
Assessment and Plan - Patient Problems (1) Hyponatremia Current Visit: Yes Status: Acute Plan to address problem: Etiology unclear SIADH in the differential diagnosis Nephrology consult requested Urine osmolarity Serum osmolarity Nephrology consult requested IV normal saline for now (2) Hypertension Current Visit: Yes Status: Chronic Qualifiers: Hypertension type: primary hypertension Qualified Code(s): I10 - Essential (primary) hypertension Plan to address problem: Continue home antihypertensives and adjust medications (3) T2DM (type 2 diabetes mellitus) Current Visit: Yes Status: Chronic Qualifiers: Diabetes mellitus senior care insulin use: without senior care use Plan to address problem: Continue metformin and coverage with sliding scale--Humalog Check hemoglobin A1c (4) Hyperlipidemia Current Visit: Yes Status: Chronic Qualifiers: Hyperlipidemia type: mixed hyperlipidemia Qualified Code(s): E78.2 - Mixed hyperlipidemia Plan to address problem: Continue statins (5) DVT prophylaxis Current Visit: Yes Status: Acute Plan to address problem: On heparin GI prophylaxis (6) Advance care planning Current Visit: Yes Status: Acute Plan to address problem: Disease education conducted care plan discussed, diagnosis discussed and prognosis discussed. Patient acknowledged understanding with care plan +30 minutes. Subjective Date of service: 09/12/21 Principal diagnosis: SIADH Interval history: 76-year-old female with history of hypertension, hyperlipidemia and T2DM comes in for generalized weakness 3 to 4 days. Patient has not been well postop, following low Solu-Medrol. Patient was normal however because of oral Lasix. Patient is not vomiting. No abdominal pain. No diarrhea. Her baseline sodium was 130. No exacerbating or relieving factors. No fever or chills. 09/12/2021 Work-up consistent with SIADH Continue IV normal saline Nephrology follow-up appreciated Objective - Constitutional Vitals: Vital Signs - 12hr 09/12/21 09/12/21 09/12/21 03:19 08:00 08:27 Temperature 97.5 F L 97.6 F Pulse Rate 53 L 52 L 54 L Respiratory 18 18 Rate Blood Pressure 97/49 147/75 O2 Sat by Pulse 99 98 Oximetry General appearance: Present: no acute distress, well-nourished - EENT Eyes: PERRL, EOM intact ENT: hearing intact, clear oral mucosa Ears: bilateral: normal - Neck Neck: supple, normal ROM - Respiratory Respiratory effort: normal Respiratory: bilateral: CTA - Breasts Breasts: normal - Cardiovascular Rhythm: regular Heart Sounds: Present: S1 & S2. Absent: gallop, rub Extremities: pulses intact, No edema, normal color, Full ROM - Gastrointestinal General gastrointestinal: Present: soft, non-tender, non-distended, normal bowel sounds - Genitourinary Female genitourinary: normal - Integumentary Integumentary: clear, warm, dry - Musculoskeletal Musculoskeletal: 1, strength equal bilaterally - Neurologic Neurologic: moves all extremities - Psychiatric Psychiatric: memory intact, appropriate mood/affect, intact judgment & insight - Labs CBC & Chem 7: 09/15/21 04:04 09/16/21 05:22 Labs: Abnormal lab results 09/11/21 09/11/21 09/12/21 Range/Units 23:02 23:02 07:12 RBC 3.49 L (3.65-5.03) M/mm3 MCH 34 H (28-32) pg MCHC 35 H (30-34) % Lymph % (Auto) 50.2 H (13.4-35.0) % [place] % (Auto) 11.5 H (0.0-7.3) % Seg Neutrophils % 35.7 L (40.0-70.0) % Sodium (137-145) mmol/L Chloride (98-107) mmol/L Carbon Dioxide (22-30) mmol/L Glucose (65-100) mg/dL Uric Acid (3.5-7.6) mg/dL Calcium (8.4-10.2) mg/dL Albumin (3.9-5) g/dL Urine pH 7.5 H (5.0-7.0) Urine Blood Moderate A (Negative) Urine WBC (Auto) 24.0 H (0.0-6.0) /HPF Urine Creatinine 84.4 H (0.1-20.0) mg/dL 09/12/21 09/12/21 09/12/21 Range/Units 07:12 09:29 11:42 RBC (3.65-5.03) M/mm3 MCH (28-32) pg MCHC (30-34) % Lymph % (Auto) (13.4-35.0) % [place] % (Auto) (0.0-7.3) % Seg Neutrophils % (40.0-70.0) % Sodium 119 L* 120 L (137-145) mmol/L Chloride 86.9 L 85.9 L (98-107) mmol/L Carbon Dioxide 21 L (22-30) mmol/L Glucose 101 H (65-100) mg/dL Uric Acid 2.4 L (3.5-7.6) mg/dL Calcium 8.3 L (8.4-10.2) mg/dL Albumin 3.8 L (3.9-5) g/dL Urine pH (5.0-7.0) Urine Blood (Negative) Urine WBC (Auto) (0.0-6.0) /HPF Urine Creatinine (0.1-20.0) mg/dL
[2021-09-12 18:52] LABS: Mucus,Urine FEW /HPF
[2021-09-12 18:53] LABS: Osmolality,Urine 284 Mosm/kg
[2021-09-12] MEDS: PRAVASTATIN 40 MG TAB PO SCH (21:22)
[2021-09-13] MEDS: ACETAMINOPHEN 325 MG TAB PO PRN ×2 (02:06→11:20)
[2021-09-13 06:24] LABS: Blood Urea Nitrogen 3 mg/dL (7-17); Calcium 8.1 mg/dL (8.4-10.2); Hemolysis Index 1
[2021-09-13 06:26] LABS: BUN/Creatinine Ratio 4
[2021-09-13] MEDS: SODIUM CHLORIDE 0.9% 1000 ML 1,000 ML IV SCH ×2 (11:17→22:31)
[2021-09-13] MEDS: LOSARTAN 50 MG TAB PO SCH (11:17)
[2021-09-13] MEDS: dilTIAZem CD 120 MG CAP PO SCH (11:17)
[2021-09-13] MEDS: HEPARIN 5,000 UNIT/1 ML VIAL SUB-Q SCH ×2 (11:17→22:28)
--- NOTE | 2021-09-13 13:41 | Progress Note ---
Assessment and Plan - Patient Problems (1) SIADH (syndrome of inappropriate ADH production) Current Visit: Yes Status: Acute Plan to address problem: Work-up consistent with SIADH Urine sodium is high and urine osmolarity is high (2) Hyponatremia Current Visit: Yes Status: Acute Plan to address problem: Etiology unclear SIADH in the differential diagnosis Nephrology consult requested Urine osmolarity Serum osmolarity Nephrology consult requested IV normal saline for now (3) Hypertension Current Visit: Yes Status: Chronic Qualifiers: Hypertension type: primary hypertension Qualified Code(s): I10 - Essential (primary) hypertension Plan to address problem: Continue home antihypertensives and adjust medications (4) T2DM (type 2 diabetes mellitus) Current Visit: Yes Status: Chronic Qualifiers: Diabetes mellitus halfway insulin use: without halfway use Plan to address problem: Continue metformin and coverage with sliding scale--Humalog Check hemoglobin A1c (5) Hyperlipidemia Current Visit: Yes Status: Chronic Qualifiers: Hyperlipidemia type: mixed hyperlipidemia Qualified Code(s): E78.2 - Mixed hyperlipidemia Plan to address problem: Continue statins (6) DVT prophylaxis Current Visit: Yes Status: Acute Plan to address problem: On heparin GI prophylaxis (7) Advance care planning Current Visit: Yes Status: Acute Plan to address problem: Disease education conducted care plan discussed, diagnosis discussed and prognosis discussed. Patient acknowledged understanding with care plan +30 minutes. Subjective Date of service: 09/13/21 Principal diagnosis: SIADH Interval history: 76-year-old female with history of hypertension, hyperlipidemia and T2DM comes in for generalized weakness 3 to 4 days. Patient has not been well postop, following low Solu-Medrol. Patient was normal however because of oral Lasix. Patient is not vomiting. No abdominal pain. No diarrhea. Her baseline sodium was 130. No exacerbating or relieving factors. No fever or chills. 09/12/2021 Work-up consistent with SIADH Continue IV normal saline Nephrology follow-up appreciated 09/13/2021 Urine sodium, urine osmolality in favor of SIADH Objective - Constitutional Vitals: Vital Signs - 12hr 09/13/21 09/13/21 09/13/21 03:49 07:07 10:00 Temperature 98.0 F 97.6 F Pulse Rate 56 L 53 L Respiratory 16 18 Rate Blood Pressure 127/66 131/59 O2 Sat by Pulse 100 99 98 Oximetry 09/13/21 12:00 Temperature Pulse Rate 53 L Respiratory Rate Blood Pressure O2 Sat by Pulse Oximetry General appearance: Present: no acute distress, well-nourished - EENT Eyes: PERRL, EOM intact ENT: hearing intact, clear oral mucosa Ears: bilateral: normal - Neck Neck: supple, normal ROM - Respiratory Respiratory effort: normal Respiratory: bilateral: CTA - Breasts Breasts: normal - Cardiovascular Heart rate: 78 Rhythm: regular Heart Sounds: Present: S1 & S2. Absent: gallop, rub Extremities: pulses intact, No edema, normal color, Full ROM - Gastrointestinal General gastrointestinal: Present: soft, non-tender, non-distended, normal bowel sounds - Genitourinary Female genitourinary: normal - Integumentary Integumentary: clear, warm, dry - Musculoskeletal Musculoskeletal: 1, strength equal bilaterally - Neurologic Neurologic: moves all extremities - Psychiatric Psychiatric: memory intact, appropriate mood/affect, intact judgment & insight - Labs CBC & Chem 7: 09/15/21 04:04 09/16/21 05:22 Labs: Abnormal lab results 09/13/21 Range/Units 04:35 Sodium 121 L (137-145) mmol/L Chloride 88.6 L (98-107) mmol/L Carbon Dioxide 21 L (22-30) mmol/L BUN 3 L (7-17) mg/dL Calcium 8.1 L (8.4-10.2) mg/dL
--- NOTE | 2021-09-13 16:27 | Progress Note ---
Assessment and Plan Impression * Hyponatremia * Hypertension * Diabetes * History of breast cancer Recommendations * Patient is clinically euvolemic. Suspect a possible component of SIADH contributing to her hyponatremia. Consider hypovolemia as well * Sodium slightly improving 120->122 * Urine tests most consistent with SIADH but taken after given IVF * Continue isotonic fluid for now * Avoid medications that would aggravate her hyponatremia * Monitor fluid status and electrolytes closely * Thank you very much for the consultation. Shall follow along with you Subjective Date of service: 09/13/21 Interval history: No acute issues noted today, feeling well, wants to go home Objective - Exam Narrative Exam: General appearance: well-developed, well-nourished, appears stated age EENT: PERRL, mucous membranes moist Neck: Present: neck supple, trachea midline. Absent: JVD/HJR, Masses Respiratory: Clear to Ascultation Heart: regular, normal heart rate, S1S2, no murmurs Gastrointestinal: Present: normal, normoactive bowel sounds Integumentary: other (No edema) - Vital Signs Vital signs: Vital Signs - 12hr 09/13/21 09/13/21 09/13/21 07:07 10:00 12:00 Temperature 97.6 F Pulse Rate 53 L 53 L Respiratory 18 Rate Blood Pressure 131/59 O2 Sat by Pulse 99 98 Oximetry - Lab 09/12/21 07:12 09/13/21 04:35 Most recent lab results Calcium 8.1 mg/dL (8.4-10.2) L 09/13/21 04:35 Urine Creatinine 84.4 mg/dL (0.1-20.0) H 09/11/21 23:02 Urine Sodium 61 mmol/L 09/12/21 18:28 Medications & Allergies - Medications Allergies/Adverse Reactions: Allergies aspirin Allergy (Verified 09/12/21 15:06) Hives/upset stomach Home Medications: Home Medications Medication Instructions Recorded Confirmed Last Taken Type Pravastatin [Pravachol] 40 mg PO QHS 04/14/17 09/12/21 09/10/21 History metFORMIN [Glucophage] 500 mg PO BID 04/14/17 09/12/21 09/10/21 History Anastrozole [Arimidex] 1 mg PO DAILY 09/12/21 09/12/21 09/10/21 History Diltiazem HCl [Cardizem LA] 120 mg PO QDAY 09/12/21 09/12/21 09/10/21 History Metoprolol Xl [Toprol Xl] 25 mg PO BID 09/12/21 09/12/21 09/10/21 History hydrALAZINE [Apresoline TAB] 25 mg PO BID 09/12/21 09/12/21 09/10/21 History hydroCHLOROthiazide [HCTZ] 25 mg PO QDAY 09/12/21 09/12/21 09/10/21 History Active Medications: Generic Name Dose Route Start Last Admin Trade Name Freq PRN Reason Stop Dose Admin Acetaminophen 650 mg 09/11/21 20:12 09/13/21 11:20 Acetaminophen 325 Mg Tab PO 650 mg Q4H PRN Administration Pain MILD(1-3)/Fever >100.5/HERRERA Diltiazem HCl 120 mg 09/11/21 21:00 09/13/21 11:17 Diltiazem Cd 120 Mg Cap PO 120 mg DAILY SIOBHAN Administration Heparin Sodium (Porcine) 5,000 unit 09/11/21 22:00 09/13/21 11:17 Heparin 5,000 Unit/1 Ml Vial SUB-Q 5,000 unit Q12HR SIOBHAN Administration Hydromorphone HCl 0.5 mg 09/11/21 20:12 Hydromorphone 0.5 Mg/0.5 Ml Inj IV Q3H PRN Pain , Severe (7-10) Sodium Chloride 1,000 mls @ 75 mls/hr 09/11/21 20:15 09/13/21 11:17 Nacl 0.9% 1000 Ml IV 75 mls/hr DIRECT SIOBHAN Administration Losartan Potassium 50 mg 09/11/21 21:00 09/13/21 11:17 Losartan 50 Mg Tab PO 50 mg QDAY SIOBHAN Administration Metoclopramide HCl 10 mg 09/11/21 20:12 Metoclopramide 10 Mg/2 Ml Inj IV Q6H PRN Nausea And Vomiting Morphine Sulfate 2 mg 09/11/21 20:12 Morphine 2 Mg/1 Ml Inj IV Q4H PRN Pain, Moderate (4-6) Ondansetron HCl 4 mg 09/11/21 20:12 Ondansetron 4 Mg/2 Ml Inj IV Q3H PRN Nausea And Vomiting Pravastatin Sodium 40 mg 09/11/21 22:00 09/12/21 21:22 Pravastatin 40 Mg Tab PO 40 mg QHS SIOBHAN Administration Sodium Chloride 10 ml 09/11/21 22:00 09/13/21 11:18 Sodium Chloride 0.9% 10 Ml Flush Syringe IV 10 ml BID SIOBHAN Administration Sodium Chloride 10 ml 09/11/21 20:12 Sodium Chloride 0.9% 10 Ml Flush Syringe IV PRN PRN LINE FLUSH
[2021-09-13] MEDS: PRAVASTATIN 40 MG TAB PO SCH (22:28)
[2021-09-14] MEDS: HEPARIN 5,000 UNIT/1 ML VIAL SUB-Q SCH ×2 (09:08→21:41)
[2021-09-14] MEDS: LOSARTAN 50 MG TAB PO SCH (09:08)
[2021-09-14] MEDS: dilTIAZem CD 120 MG CAP PO SCH (09:08)
[2021-09-14] MEDS: ACETAMINOPHEN 325 MG TAB PO PRN (09:08)
[2021-09-14] MEDS: ALUM-MAG HYDROXIDE-SIMETHICONE 200-200-20MG/5ML ORAL LIQD 30 ML PO PRN ×2 (09:09→14:50)
--- NOTE | 2021-09-14 12:43 | Progress Note ---
Assessment and Plan Impression * Hyponatremia * Hypertension * Diabetes * History of breast cancer Recommendations * Patient is clinically euvolemic. * Urine studies consistent with SIADH. Urine sodium is 61 and urine osmolality is 284. TSH is normal and uric acid is low at 2.4 * Serum sodium seems to have leveled off at approximately 121 * Shall place her on low-dose Samsca * Discontinue IV saline for now * Avoid medications that would aggravate her hyponatremia * Monitor fluid status and electrolytes closely Subjective Date of service: 09/14/21 Interval history: Patient is clinically about the same. Denies any shortness of breath. No nausea vomiting or diarrhea. Objective - Vital Signs Vital signs: Vital Signs - 12hr 09/14/21 09/14/21 09/14/21 04:03 05:00 07:28 Temperature 98.0 F Pulse Rate 63 74 Respiratory 18 Rate Blood Pressure 139/58 O2 Sat by Pulse 98 98 Oximetry 09/14/21 09/14/21 08:35 11:32 Temperature 97.5 F L 98.3 F Pulse Rate 60 64 Respiratory Rate Blood Pressure 147/64 137/60 O2 Sat by Pulse 99 98 Oximetry - General Appearance General appearance: well-developed, well-nourished, appears stated age EENT: PERRL, mucous membranes moist Neck: no JVD, no thyromegaly, no carotid bruit, supple Respiratory: Present: Clear to Ascultation Cardiology: regular, normal heart rate, S1S2, no murmurs Gastrointestinal: normal, normoactive bowel sounds Integumentary: no rash, other (No edema) - Lab 09/12/21 07:12 09/13/21 04:35 Most recent lab results Calcium 8.1 mg/dL (8.4-10.2) L 09/13/21 04:35 Urine Creatinine 84.4 mg/dL (0.1-20.0) H 09/11/21 23:02 Urine Sodium 61 mmol/L 09/12/21 18:28 Medications & Allergies - Medications Allergies/Adverse Reactions: Allergies aspirin Allergy (Verified 09/12/21 15:06) Hives/upset stomach Home Medications: Home Medications Medication Instructions Recorded Confirmed Last Taken Type Pravastatin [Pravachol] 40 mg PO QHS 04/14/17 09/12/21 09/10/21 History metFORMIN [Glucophage] 500 mg PO BID 04/14/17 09/12/21 09/10/21 History Anastrozole [Arimidex] 1 mg PO DAILY 09/12/21 09/12/21 09/10/21 History Diltiazem HCl [Cardizem LA] 120 mg PO QDAY 09/12/21 09/12/21 09/10/21 History Metoprolol Xl [Toprol Xl] 25 mg PO BID 09/12/21 09/12/21 09/10/21 History hydrALAZINE [Apresoline TAB] 25 mg PO BID 09/12/21 09/12/21 09/10/21 History hydroCHLOROthiazide [HCTZ] 25 mg PO QDAY 09/12/21 09/12/21 09/10/21 History Active Medications: Generic Name Dose Route Start Last Admin Trade Name Freq PRN Reason Stop Dose Admin Acetaminophen 650 mg 09/11/21 20:12 09/14/21 09:08 Acetaminophen 325 Mg Tab PO 650 mg Q4H PRN Administration Pain MILD(1-3)/Fever >100.5/HERRERA Al Hydrox/Mg Hydrox/Simethicone 15 ml 09/14/21 08:44 09/14/21 09:09 Alum-Mag Hydroxide-Simethicone [id number]/5ml Oral Liqd 30 Ml PO 15 ml Q4H PRN Administration Indigestion Diltiazem HCl 120 mg 09/11/21 21:00 09/14/21 09:08 Diltiazem Cd 120 Mg Cap PO 120 mg DAILY SIOBHAN Administration Heparin Sodium (Porcine) 5,000 unit 09/11/21 22:00 09/14/21 09:08 Heparin 5,000 Unit/1 Ml Vial SUB-Q 5,000 unit Q12HR SIOBHAN Administration Hydromorphone HCl 0.5 mg 09/11/21 20:12 Hydromorphone 0.5 Mg/0.5 Ml Inj IV Q3H PRN Pain , Severe (7-10) Sodium Chloride 1,000 mls @ 75 mls/hr 09/11/21 20:15 09/13/21 22:31 Nacl 0.9% 1000 Ml IV 75 mls/hr DIRECT SIOBHAN Administration Losartan Potassium 50 mg 09/11/21 21:00 09/14/21 09:08 Losartan 50 Mg Tab PO 50 mg QDAY SIOBHAN Administration Metoclopramide HCl 10 mg 09/11/21 20:12 Metoclopramide 10 Mg/2 Ml Inj IV Q6H PRN Nausea And Vomiting Morphine Sulfate 2 mg 09/11/21 20:12 Morphine 2 Mg/1 Ml Inj IV Q4H PRN Pain, Moderate (4-6) Ondansetron HCl 4 mg 09/11/21 20:12 Ondansetron 4 Mg/2 Ml Inj IV Q3H PRN Nausea And Vomiting Pravastatin Sodium 40 mg 09/11/21 22:00 09/13/21 22:28 Pravastatin 40 Mg Tab PO 40 mg QHS SIOBHAN Administration Sodium Chloride 10 ml 09/11/21 22:00 09/14/21 09:09 Sodium Chloride 0.9% 10 Ml Flush Syringe IV 10 ml BID SIOBHAN Administration Sodium Chloride 10 ml 09/11/21 20:12 Sodium Chloride 0.9% 10 Ml Flush Syringe IV PRN PRN LINE FLUSH
[2021-09-14] MEDS: TOLVAPTAN 15 MG TAB PO SCH (14:50)
--- NOTE | 2021-09-14 18:29 | Progress Note ---
Assessment and Plan - Patient Problems (1) Hyponatremia Current Visit: Yes Status: Acute Plan to address problem: Etiology unclear SIADH in the differential diagnosis Nephrology consult requested Urine osmolarity Serum osmolarity Nephrology consult requested IV normal saline for now (2) Hypertension Current Visit: Yes Status: Chronic Qualifiers: Hypertension type: primary hypertension Qualified Code(s): I10 - Essential (primary) hypertension Plan to address problem: Continue home antihypertensives and adjust medications (3) T2DM (type 2 diabetes mellitus) Current Visit: Yes Status: Chronic Qualifiers: Diabetes 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 insulin use: without watermelon inspector use Plan to address problem: Continue metformin and coverage with sliding scale--Humalog Check hemoglobin A1c (4) Hyperlipidemia Current Visit: Yes Status: Chronic Qualifiers: Hyperlipidemia type: mixed hyperlipidemia Qualified Code(s): E78.2 - Mixed hyperlipidemia Plan to address problem: Continue statins (5) DVT prophylaxis Current Visit: Yes Status: Acute Plan to address problem: On heparin GI prophylaxis (6) Advance care planning Current Visit: Yes Status: Acute Plan to address problem: Disease education conducted care plan discussed, diagnosis discussed and prognosis discussed. Patient acknowledged understanding with care plan +30 minutes. Subjective Date of service: 09/14/21 Objective - Constitutional Vitals: Vital Signs - 12hr 09/14/21 09/14/21 09/14/21 07:28 08:35 11:32 Temperature 97.5 F L 98.3 F Pulse Rate 60 64 Blood Pressure 147/64 137/60 O2 Sat by Pulse 98 99 98 Oximetry 09/14/21 15:57 Temperature 98.5 F Pulse Rate 63 Blood Pressure 140/74 O2 Sat by Pulse 100 Oximetry General appearance: Present: no acute distress, well-nourished - EENT Eyes: PERRL, EOM intact ENT: hearing intact, clear oral mucosa Ears: bilateral: normal - Neck Neck: supple, normal ROM - Respiratory Respiratory effort: normal Respiratory: bilateral: CTA - Breasts Breasts: normal - Cardiovascular Rhythm: regular Heart Sounds: Present: S1 & S2. Absent: gallop, rub Extremities: pulses intact, No edema, normal color, Full ROM - Gastrointestinal General gastrointestinal: Present: soft, non-tender, non-distended, normal bowel sounds - Genitourinary Female genitourinary: normal - Integumentary Integumentary: clear, warm, dry - Musculoskeletal Musculoskeletal: 1, strength equal bilaterally - Neurologic Neurologic: moves all extremities - Psychiatric Psychiatric: memory intact, appropriate mood/affect, intact judgment & insight - Labs CBC & Chem 7: 09/12/21 07:12 09/13/21 04:35
[2021-09-14 19:10] LABS: BUN/Creatinine Ratio 3; Blood Urea Nitrogen 2 mg/dL (7-17); Calcium 9.4 mg/dL (8.4-10.2); Hemolysis Index 10
[2021-09-14] MEDS: PRAVASTATIN 40 MG TAB PO SCH (21:41)
[2021-09-15] MEDS: ACETAMINOPHEN 325 MG TAB PO PRN ×2 (00:36→09:29)
[2021-09-15 00:50] LABS: BUN/Creatinine Ratio 4; Blood Urea Nitrogen 3 mg/dL (7-17); Calcium 9.4 mg/dL (8.4-10.2); Hemolysis Index 145
[2021-09-15 05:14] LABS: Hematocrit 35.2 % (30.3-42.9); Mean Corpuscular HGB Conc 34 % (30-34); Mean Corpuscular Volume 97 fl (79-97); Platelet Count 246 K/mm3 (140-440); Red Blood Count 3.61 M/mm3 (3.65-5.03); Red Cell Distribution Width 14.8 % (13.2-15.2)
[2021-09-15 06:51] LABS: Basophils # (Auto) 0.1 K/mm3 (0.0-0.1); Basophils % (Auto) 1.4 % (0.0-1.8); Eosinophils # (Auto) 0.1 K/mm3 (0.0-0.4); Eosinophils % (Auto) 1.6 % (0.0-4.3); Lymphocytes # (Auto) 2.8 K/mm3 (1.2-5.4); Monocytes # (Auto) 0.6 K/mm3 (0.0-0.8); Monocytes % (Auto) 10.8 % (0.0-7.3)
[2021-09-15] MEDS: LOSARTAN 50 MG TAB PO SCH (09:29)
[2021-09-15] MEDS: dilTIAZem CD 120 MG CAP PO SCH (09:29)
[2021-09-15] MEDS: ALUM-MAG HYDROXIDE-SIMETHICONE 200-200-20MG/5ML ORAL LIQD 30 ML PO PRN ×2 (09:29→13:50)
[2021-09-15] MEDS: HEPARIN 5,000 UNIT/1 ML VIAL SUB-Q SCH ×2 (09:29→22:01)
[2021-09-15 10:25] LABS: Calcium 9.4 mg/dL (8.4-10.2)
[2021-09-15] MEDS: TOLVAPTAN 15 MG TAB PO SCH (12:41)
--- NOTE | 2021-09-15 12:55 | Progress Note ---
Assessment and Plan Impression * Hyponatremia * Hypertension * Diabetes * History of breast cancer Recommendations * Patient is clinically euvolemic. * Urine studies consistent with SIADH. Urine sodium is 61 and urine osmolality is 284. TSH is normal and uric acid is low at 2.4 * Serum sodium seems to have leveled off at approximately 121 * Patient is tolerating low-dose Samsca. Serum sodium has gone up by 5 mEQ in the last 24 hours. Continue same dosage for now * Avoid medications that would aggravate her hyponatremia * Monitor fluid status and electrolytes closely * Anticipate discharge in the next 24 to 48 hours once serum sodium is over 130 Subjective Date of service: 09/15/21 Interval history: Patient is clinically about the same. Denies any shortness of breath. No nausea vomiting or diarrhea. Objective - Vital Signs Vital signs: Vital Signs - 12hr 09/15/21 09/15/21 09/15/21 05:18 07:35 08:14 Temperature 97.9 F 97.5 F L Pulse Rate 68 70 Respiratory 18 Rate Blood Pressure 102/56 153/84 O2 Sat by Pulse 97 98 100 Oximetry 09/15/21 12:23 Temperature 97.4 F L Pulse Rate 63 Respiratory Rate Blood Pressure 167/76 O2 Sat by Pulse 100 Oximetry - General Appearance General appearance: well-developed, well-nourished, appears stated age EENT: PERRL, mucous membranes moist Neck: no JVD, no thyromegaly, no carotid bruit, supple Respiratory: Present: Clear to Ascultation Cardiology: regular, normal heart rate, S1S2, no murmurs Gastrointestinal: normal, normoactive bowel sounds Integumentary: no rash, other (No edema) - Lab 09/15/21 04:04 09/15/21 08:43 Most recent lab results Calcium 9.4 mg/dL (8.4-10.2) 09/15/21 08:43 Urine Creatinine 84.4 mg/dL (0.1-20.0) H 09/11/21 23:02 Urine Sodium 61 mmol/L 09/12/21 18:28 Medications & Allergies - Medications Allergies/Adverse Reactions: Allergies aspirin Allergy (Verified 09/12/21 15:06) Hives/upset stomach Home Medications: Home Medications Medication Instructions Recorded Confirmed Last Taken Type Pravastatin [Pravachol] 40 mg PO QHS 04/14/17 09/12/21 09/10/21 History metFORMIN [Glucophage] 500 mg PO BID 04/14/17 09/12/21 09/10/21 History Anastrozole [Arimidex] 1 mg PO DAILY 09/12/21 09/12/21 09/10/21 History Diltiazem HCl [Cardizem LA] 120 mg PO QDAY 09/12/21 09/12/21 09/10/21 History Metoprolol Xl [Toprol Xl] 25 mg PO BID 09/12/21 09/12/21 09/10/21 History hydrALAZINE [Apresoline TAB] 25 mg PO BID 09/12/21 09/12/21 09/10/21 History hydroCHLOROthiazide [HCTZ] 25 mg PO QDAY 09/12/21 09/12/21 09/10/21 History Active Medications: Generic Name Dose Route Start Last Admin Trade Name Freq PRN Reason Stop Dose Admin Acetaminophen 650 mg 09/11/21 20:12 09/15/21 09:29 Acetaminophen 325 Mg Tab PO 650 mg Q4H PRN Administration Pain MILD(1-3)/Fever >100.5/HERRERA Al Hydrox/Mg Hydrox/Simethicone 15 ml 09/14/21 08:44 09/15/21 09:29 Alum-Mag Hydroxide-Simethicone [id number]/5ml Oral Liqd 30 Ml PO 15 ml Q4H PRN Administration Indigestion Diltiazem HCl 120 mg 09/11/21 21:00 09/15/21 09:29 Diltiazem Cd 120 Mg Cap PO 120 mg DAILY SIOBHAN Administration Heparin Sodium (Porcine) 5,000 unit 09/11/21 22:00 09/15/21 09:29 Heparin 5,000 Unit/1 Ml Vial SUB-Q Not Given Q12HR SIOBHAN Hydromorphone HCl 0.5 mg 09/11/21 20:12 Hydromorphone 0.5 Mg/0.5 Ml Inj IV Q3H PRN Pain , Severe (7-10) Losartan Potassium 50 mg 09/11/21 21:00 09/15/21 09:29 Losartan 50 Mg Tab PO 50 mg QDAY SIOBHAN Administration Metoclopramide HCl 10 mg 09/11/21 20:12 Metoclopramide 10 Mg/2 Ml Inj IV Q6H PRN Nausea And Vomiting Morphine Sulfate 2 mg 09/11/21 20:12 Morphine 2 Mg/1 Ml Inj IV Q4H PRN Pain, Moderate (4-6) Ondansetron HCl 4 mg 09/11/21 20:12 Ondansetron 4 Mg/2 Ml Inj IV Q3H PRN Nausea And Vomiting Pravastatin Sodium 40 mg 09/11/21 22:00 09/14/21 21:41 Pravastatin 40 Mg Tab PO 40 mg QHS SIOBHAN Administration Sodium Chloride 10 ml 09/11/21 22:00 09/15/21 09:31 Sodium Chloride 0.9% 10 Ml Flush Syringe IV 10 ml BID SIOBHAN Administration Sodium Chloride 10 ml 09/11/21 20:12 Sodium Chloride 0.9% 10 Ml Flush Syringe IV PRN PRN LINE FLUSH Tolvaptan 15 mg 09/14/21 13:00 09/15/21 12:41 Tolvaptan 15 Mg Tab PO 15 mg Q24H SIOBHAN Administration
--- NOTE | 2021-09-15 15:48 | Progress Note ---
Assessment and Plan - Patient Problems (1) SIADH (syndrome of inappropriate ADH production) Current Visit: Yes Status: Acute Plan to address problem: Work-up consistent with SIADH Urine sodium is high and urine osmolarity is high (2) UTI (urinary tract infection) Current Visit: Yes Status: Acute Qualifiers: Urinary tract infection type: acute cystitis Plan to address problem: Initiated on IV Rocephin (3) Hyponatremia Current Visit: Yes Status: Acute Plan to address problem: Etiology unclear SIADH in the differential diagnosis Nephrology consult requested Urine osmolarity Serum osmolarity Nephrology consult requested IV normal saline for now (4) Hypertension Current Visit: Yes Status: Chronic Qualifiers: Hypertension type: primary hypertension Qualified Code(s): I10 - Essential (primary) hypertension Plan to address problem: Continue home antihypertensives and adjust medications (5) T2DM (type 2 diabetes mellitus) Current Visit: Yes Status: Chronic Qualifiers: 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: without [facility] use Plan to address problem: Continue metformin and coverage with sliding scale--Humalog Check hemoglobin A1c (6) Hyperlipidemia Current Visit: Yes Status: Chronic Qualifiers: Hyperlipidemia type: mixed hyperlipidemia Qualified Code(s): E78.2 - Mixed hyperlipidemia Plan to address problem: Continue statins (7) DVT prophylaxis Current Visit: Yes Status: Acute Plan to address problem: On heparin GI prophylaxis (8) Advance care planning Current Visit: Yes Status: Acute Plan to address problem: Disease education conducted care plan discussed, diagnosis discussed and prognosis discussed. Patient acknowledged understanding with care plan +30 minutes. Subjective Date of service: 09/15/21 Principal diagnosis: SIADH Interval history: 76-year-old female with history of hypertension, hyperlipidemia and T2DM comes in for generalized weakness 3 to 4 days. Patient has not been well postop, following low Solu-Medrol. Patient was normal however because of oral Lasix. Patient is not vomiting. No abdominal pain. No diarrhea. Her baseline sodium was 130. No exacerbating or relieving factors. No fever or chills. 09/12/2021 Work-up consistent with SIADH Continue IV normal saline Nephrology follow-up appreciated 09/13/2021 Urine sodium, urine osmolality in favor of SIADH 09/14/2021 Work-up consistent with SIADH 09/15/2021 Work-up consistent with SIADH Serum sodium around 123 Possible discharge once serum sodium reaches above 130 Objective - Constitutional Vitals: Vital Signs - 12hr 09/15/21 09/15/21 09/15/21 05:18 07:35 08:14 Temperature 97.9 F 97.5 F L Pulse Rate 68 70 Respiratory 18 Rate Blood Pressure 102/56 153/84 O2 Sat by Pulse 97 98 100 Oximetry 09/15/21 12:23 Temperature 97.4 F L Pulse Rate 63 Respiratory Rate Blood Pressure 167/76 O2 Sat by Pulse 100 Oximetry General appearance: Present: no acute distress, well-nourished - EENT Eyes: PERRL, EOM intact ENT: hearing intact, clear oral mucosa Ears: bilateral: normal - Neck Neck: supple, normal ROM - Respiratory Respiratory effort: normal Respiratory: bilateral: CTA - Breasts Breasts: normal - Cardiovascular Heart rate: 78 Rhythm: regular Heart Sounds: Present: S1 & S2. Absent: gallop, rub Extremities: pulses intact, No edema, normal color, Full ROM - Gastrointestinal General gastrointestinal: Present: soft, non-tender, non-distended, normal bowel sounds - Genitourinary Female genitourinary: normal - Integumentary Integumentary: clear, warm, dry - Musculoskeletal Musculoskeletal: 1, strength equal bilaterally - Neurologic Neurologic: moves all extremities - Psychiatric Psychiatric: memory intact, appropriate mood/affect, intact judgment & insight - Labs CBC & Chem 7: 09/15/21 04:04 09/16/21 05:22 Labs: Abnormal lab results 09/14/21 09/15/21 09/15/21 Range/Units 18:17 00:17 04:04 RBC 3.61 L (3.65-5.03) M/mm3 MCH 33 H (28-32) pg Lymph % (Auto) 51.0 H (13.4-35.0) % [place] % (Auto) 10.8 H (0.0-7.3) % Seg Neutrophils % 35.2 L (40.0-70.0) % Sodium 127 L 128 L (137-145) mmol/L Potassium 3.2 L (3.6-5.0) mmol/L Chloride 89.9 L 93.0 L (98-107) mmol/L BUN 2 L 3 L (7-17) mg/dL Glucose 103 H (65-100) mg/dL 09/15/21 Range/Units 08:43 RBC (3.65-5.03) M/mm3 MCH (28-32) pg Lymph % (Auto) (13.4-35.0) % [place] % (Auto) (0.0-7.3) % Seg Neutrophils % (40.0-70.0) % Sodium 126 L (137-145) mmol/L Potassium (3.6-5.0) mmol/L Chloride 88.7 L (98-107) mmol/L BUN 4 L (7-17) mg/dL Glucose 143 H (65-100) mg/dL
[2021-09-15 16:59] LABS: Calcium 10.1 mg/dL (8.4-10.2)
[2021-09-15] MEDS ORDERED: SIMETHICONE 80 MG CHEW TAB PO PRN (20:58)
[2021-09-15] MEDS: PRAVASTATIN 40 MG TAB PO SCH (21:59)
[2021-09-16 05:24] VITALS: BP 132/87
[2021-09-16 06:56] LABS: BUN/Creatinine Ratio 7; Blood Urea Nitrogen 6 mg/dL (7-17); Calcium 9.4 mg/dL (8.4-10.2); Hemolysis Index 76
[2021-09-16] MEDS: HEPARIN 5,000 UNIT/1 ML VIAL SUB-Q SCH (09:55)
[2021-09-16] MEDS: dilTIAZem CD 120 MG CAP PO SCH (09:55)
[2021-09-16] MEDS: LOSARTAN 50 MG TAB PO SCH (09:55)
[2021-09-16] MEDS ORDERED: cefTRIAXone/NS 1 GM/50 ML 1 GM/50 ML BAG IV SCH (10:00)
--- NOTE | 2021-09-16 13:57 | Discharge Summary ---
Providers - Providers Date of Admission: 09/11/21 20:12 Attending physician: SUN RODRIGEZ 09/11/21 20:12 Consult to Physician [CONS] Routine Comment: Consulting Provider: GENI BARROW Physician Instructions: Reason For Exam: Hyponatremia Primary care physician: BIANCA NICHOLS Hospitalization Condition: Stable Disposition: 30 STILL A PATIENT Exam - Constitutional Vitals: Temp Pulse Resp BP Pulse Ox 98.3 F 85 18 132/87 98 09/16/21 04:28 09/16/21 10:00 09/16/21 04:28 09/16/21 04:28 09/16/21 10:00 Plan Activity: advance as tolerated Follow up with: BIANCA NICHOLS MD [Primary Care Provider] - 3-5 Days Prescriptions: Tolvaptan [Samsca] 15 mg PO Q24H #30 tablet
== END 2021-09-16 15:00 | disposition home or self-care (01) | DRG 644 ==
LOC: ED 11:09 → 4A 20:12
PROVIDERS: ADMIT Internal Medicine; ATTEND Internal Medicine
DX: E22.2 Syndrome of inappropriate secretion of antidiuretic hormone (principal); N30.00 Acute cystitis without hematuria; I10 Essential (primary) hypertension; E11.9 Type 2 diabetes mellitus without complications; M19.90 Unspecified osteoarthritis, unspecified site; E78.2 Mixed hyperlipidemia; Z85.3 Personal history of malignant neoplasm of breast; Z87.891 Personal history of nicotine dependence; Z88.6 Allergy status to analgesic agent
CPT/HCPCS: 36415; 71046; 80048; 80053; 81001; 82533; 82570; 82962; 83930; 83935; 84133; 84300; 84443; 84520; 84550; 85007; 85025; 85027; 87086; G0378; J0696; J1644; J7030

== ENCOUNTER 2021-11-10 18:50 | Inpatient (IN) | payer MEDICARE ==
[2021-11-10 19:41] LABS: Hematocrit 28.2 % (30.3-42.9); Hemoglobin 9.9 gm/dl (10.1-14.3); Mean Corpuscular HGB Conc 35 % (30-34); Mean Corpuscular Volume 92 fl (79-97); Platelet Count 187 K/mm3 (140-440); Red Blood Count 3.06 M/mm3 (3.65-5.03)
[2021-11-10 20:04] LABS: Albumin 3.2 g/dL (3.9-5); Calcium 8.9 mg/dL (8.4-10.2)
[2021-11-10 20:38] LABS: Band Neutrophils # (Manual) 0.1 K/mm3; Basophils % (Manual) 0 % (0.0-1.8); Eosinophils % (Manual) 0 % (0.0-4.3); Hypochromasia 2+; Ovalocytes Few; Platelet Estimate Consistent w Auto; Schistocytes Rare; Spherocytes Rare; Target Cells 1+; Total Cells Counted 100
[2021-11-10] MEDS ORDERED: SODIUM CHLORIDE 0.9% 1000 ML 1,000 ML IV ONE (20:56)
[2021-11-10] MEDS ORDERED: POTASSIUM CHLORIDE 10 MEQ 10 MEQ/100 ML BAG IV ONE ×2 (20:59→23:27)
[2021-11-10] MEDS ORDERED: MORPHINE 2 MG/1 ML INJ IV ONE ×2 (21:01→23:27)
--- NOTE | 2021-11-10 21:41 | Emergency Department Report ---
ED Altered Mental Status HPI - General Chief Complaint: Altered Mental Status Stated Complaint: ALTERED MENTAL STATUS Time Seen by Provider: 11/10/21 19:49 Source: EMS Mode of arrival: Stretcher Limitations: Altered Mental Status - History of Present Illness Initial Comments: 76-year-old female brought in by ambulance with history of hypertension, hyper lipidemia, and SIADH for altered mental status and abdominal pain with distended abdomen for unknown period of time. Patient is alert and oriented to person and situation, but not to place or time. Patient is unable to tell when her symptoms started. Patient does endorse abdominal pain and constipation. Patient denies vomiting. Patient denies fever or chills. Patient appears weak and cachectic, but denies decreased appetite or decreased p.o. intake. Unknown if this has occurred, previously. Unknown if there are alleviating or aggravating factors, but patient reportedly does take opiates. - Related Data Home Medications Medication Instructions Recorded Confirmed Last Taken Pravastatin [Pravachol] 40 mg PO QHS 04/14/17 09/12/21 09/10/21 metFORMIN [Glucophage] 500 mg PO BID 04/14/17 09/12/21 09/10/21 Anastrozole [Arimidex] 1 mg PO DAILY 09/12/21 09/12/21 09/10/21 Diltiazem HCl [Cardizem LA] 120 mg PO QDAY 09/12/21 09/12/21 09/10/21 Metoprolol Xl [Toprol Xl] 25 mg PO BID 09/12/21 09/12/21 09/10/21 hydrALAZINE [Apresoline TAB] 25 mg PO BID 09/12/21 09/12/21 09/10/21 hydroCHLOROthiazide [HCTZ] 25 mg PO QDAY 09/12/21 09/12/21 09/10/21 Previous Rx's Medication Instructions Recorded Last Taken Type Losartan [Cozaar] 50 mg PO QDAY tablet 09/16/21 Unknown Rx Tolvaptan [Samsca] 15 mg PO Q24H #30 tablet 09/16/21 Unknown Rx dilTIAZem CD [Cardizem CD] 120 mg PO DAILY capsule 09/16/21 Unknown Rx Allergies Allergy/AdvReac Type Severity Reaction Status Date / Time aspirin Allergy Hives/upset Verified 09/12/21 15:06 stomach ED Review of Systems ROS: Stated complaint: ALTERED MENTAL STATUS Other details as noted in HPI Comment: Unobtainable due to pts medical conditions (Altered mental status) Constitutional: no symptoms reported Respiratory: no symptoms reported Cardiovascular: denies: chest pain Endocrine: no symptoms reported Gastrointestinal: abdominal pain, constipation Neurological: confusion ED Past Medical Hx - Past Medical History Hx Hypertension: Yes (2012) Hx Diabetes: Yes Hx of Cancer: Yes (breast) Hx Arthritis: Yes Hx HIV: No Additional medical history: hypona - Surgical History Hx Breast Surgery: Yes (BX) - Social History Smoking Status: Unknown if ever smoked - Medications Home Medications: Home Medications Medication Instructions Recorded Confirmed Last Taken Type Pravastatin [Pravachol] 40 mg PO QHS 04/14/17 09/12/21 09/10/21 History metFORMIN [Glucophage] 500 mg PO BID 04/14/17 09/12/21 09/10/21 History Anastrozole [Arimidex] 1 mg PO DAILY 09/12/21 09/12/21 09/10/21 History Diltiazem HCl [Cardizem LA] 120 mg PO QDAY 09/12/21 09/12/21 09/10/21 History Metoprolol Xl [Toprol Xl] 25 mg PO BID 09/12/21 09/12/21 09/10/21 History hydrALAZINE [Apresoline TAB] 25 mg PO BID 09/12/21 09/12/21 09/10/21 History hydroCHLOROthiazide [HCTZ] 25 mg PO QDAY 09/12/21 09/12/21 09/10/21 History Losartan [Cozaar] 50 mg PO QDAY tablet 09/16/21 Unknown Rx Tolvaptan [Samsca] 15 mg PO Q24H #30 tablet 09/16/21 Unknown Rx dilTIAZem CD [Cardizem CD] 120 mg PO DAILY capsule 09/16/21 Unknown Rx ED Physical Exam - General Limitations: Altered Mental Status General appearance: alert, cachectic, other (Appears uncomfortable) - Head Head exam: Present: atraumatic, normocephalic - Eye Eye exam: Present: normal appearance, PERRL, EOMI - ENT ENT exam: Present: mucous membranes dry - Neck Neck exam: Present: normal inspection - Respiratory Respiratory exam: Present: normal lung sounds bilaterally. Absent: wheezes, rales - Cardiovascular Cardiovascular Exam: Present: tachycardia - GI/Abdominal GI/Abdominal exam: Present: distended, tenderness, guarding, rebound. Absent: bruit, pulsatile mass - Neurological Exam Neurological exam: Present: alert, altered (Patient is alert and oriented to person and situation), CN II-XII intact, other (Weakness) - Psychiatric Psychiatric exam: Present: flat affect, other (Difficult to fully assess secondary to altered mental status) ED Course Vital Signs 11/10/21 19:07 Temperature 98.7 F Pulse Rate 99 H Respiratory 18 Rate Blood Pressure 150/78 [Left] O2 Sat by Pulse 96 Oximetry - Reevaluation(s) Reevaluation #1: 11/10/21 23:28 Patient's son is currently at bedside, and reports that patient has previously been diagnosed with a lung mass. Patient also has esophageal cancer, but has been deteriorating as she has not been able to tolerate p.o., very well. Patient was recently admitted to an outside hospital for hypokalemia and hyponatremia. - Lab Data Result diagrams: 11/10/21 19:26 11/10/21 19:26 Lab Results 11/10/21 11/10/21 11/10/21 Range/Units 19:26 19:26 21:10 WBC 8.2 (4.5-11.0) K/mm3 RBC 3.06 L (3.65-5.03) M/mm3 Hgb 9.9 L (10.1-14.3) gm/dl Hct 28.2 L (30.3-42.9) % MCV 92 (79-97) fl MCH 32 (28-32) pg MCHC 35 H (30-34) % RDW 16.0 H (13.2-15.2) % Plt Count 187 (140-440) K/mm3 Add Manual Diff Complete Total Counted 100 Seg Neuts % (Manual) 94.0 H (40.0-70.0) % Band Neutrophils % 1.0 % Lymphocytes % (Manual) 2.0 L (13.4-35.0) % Reactive Lymphs % (Man) 0 % Monocytes % (Manual) 3.0 (0.0-7.3) % Eosinophils % (Manual) 0 (0.0-4.3) % Basophils % (Manual) 0 (0.0-1.8) % Metamyelocytes % 0 % Myelocytes % 0 % Promyelocytes % 0 % Blast Cells % 0 % Nucleated RBC % Not Reportable Seg Neutrophils # Man 7.7 (1.8-7.7) K/mm3 Band Neutrophils # 0.1 K/mm3 Lymphocytes # (Manual) 0.2 L (1.2-5.4) K/mm3 Abs React Lymphs (Man) 0.0 K/mm3 Monocytes # (Manual) 0.2 (0.0-0.8) K/mm3 Eosinophils # (Manual) 0.0 (0.0-0.4) K/mm3 Basophils # (Manual) 0.0 (0.0-0.1) K/mm3 Metamyelocytes # 0.0 K/mm3 Myelocytes # 0.0 K/mm3 Promyelocytes # 0.0 K/mm3 Blast Cells # 0.0 K/mm3 WBC Morphology Not Reportable Hypersegmented Neuts Not Reportable Hyposegmented Neuts Not Reportable Hypogranular Neuts Not Reportable Smudge Cells Not Reportable Toxic Granulation Not Reportable Toxic Vacuolation Not Reportable Dohle Bodies Not Reportable Pelger-Huet Anomaly Not Reportable Brenda Rods Not Reportable Platelet Estimate Consistent w auto Clumped Platelets Not Reportable Plt Clumps, EDTA Not Reportable Large Platelets Not Reportable Giant Platelets Not Reportable Platelet Satelliting Not Reportable Plt Morphology Comment Not Reportable RBC Morphology Not Reportable Dimorphic RBCs Not Reportable Polychromasia Not Reportable Hypochromasia 2+ Poikilocytosis Not Reportable Anisocytosis Not Reportable Microcytosis Not Reportable Macrocytosis Not Reportable Spherocytes Rare Pappenheimer Bodies Not Reportable Sickle Cells Not Reportable Target Cells 1+ Tear Drop Cells Not Reportable Ovalocytes Few Helmet Cells Not Reportable Fierro-Ewen Bodies Not Reportable [place] Rings Not Reportable [place]rie Cells Not Reportable Bite Cells Not Reportable Crenated Cell Not Reportable Elliptocytes Not Reportable Acanthocytes (Spur) Few Rouleaux Not Reportable Hemoglobin C Crystals Not Reportable Schistocytes Rare Malaria parasites Not Reportable Son Bodies Not Reportable Hem Pathologist Commnt No PT (12.2-14.9) Sec. INR (0.87-1.13) APTT (24.2-36.6) Sec. Sodium 138 (137-145) mmol/L Potassium 2.9 L* (3.6-5.0) mmol/L Chloride 92.5 L (98-107) mmol/L Carbon Dioxide 30 (22-30) mmol/L Anion Gap 18 mmol/L BUN 30 H (7-17) mg/dL Creatinine 1.5 H (0.6-1.2) mg/dL Estimated GFR 41 ml/min BUN/Creatinine Ratio 20 % Glucose 134 H (65-100) mg/dL Lactic Acid 1.90 (0.7-2.0) mmol/L Calcium 8.9 (8.4-10.2) mg/dL Magnesium (1.7-2.3) mg/dL Total Bilirubin 2.60 H (0.1-1.2) mg/dL AST 135 H (5-40) units/L ALT 84 H (7-56) units/L Alkaline Phosphatase 311 H (35-129) units/L Ammonia (25-60) umol/L Troponin T (0.00-0.029) ng/mL Total Protein 5.3 L (6.3-8.2) g/dL Albumin 3.2 L (3.9-5) g/dL Albumin/Globulin Ratio 1.5 % Lipase 2550 H (13-60) units/L Plasma/Serum Alcohol (0-0.07) % 11/10/21 11/10/21 11/10/21 Range/Units 21:10 21:10 21:10 WBC (4.5-11.0) K/mm3 RBC (3.65-5.03) M/mm3 Hgb (10.1-14.3) gm/dl Hct (30.3-42.9) % MCV (79-97) fl MCH (28-32) pg MCHC (30-34) % RDW (13.2-15.2) % Plt Count (140-440) K/mm3 Add Manual Diff Total Counted Seg Neuts % (Manual) (40.0-70.0) % Band Neutrophils % % Lymphocytes % (Manual) (13.4-35.0) % Reactive Lymphs % (Man) % Monocytes % (Manual) (0.0-7.3) % Eosinophils % (Manual) (0.0-4.3) % Basophils % (Manual) (0.0-1.8) % Metamyelocytes % % Myelocytes % % Promyelocytes % % Blast Cells % % Nucleated RBC % Seg Neutrophils # Man (1.8-7.7) K/mm3 Band Neutrophils # K/mm3 Lymphocytes # (Manual) (1.2-5.4) K/mm3 Abs React Lymphs (Man) K/mm3 Monocytes # (Manual) (0.0-0.8) K/mm3 Eosinophils # (Manual) (0.0-0.4) K/mm3 Basophils # (Manual) (0.0-0.1) K/mm3 Metamyelocytes # K/mm3 Myelocytes # K/mm3 Promyelocytes # K/mm3 Blast Cells # K/mm3 WBC Morphology Hypersegmented Neuts Hyposegmented Neuts Hypogranular Neuts Smudge Cells Toxic Granulation Toxic Vacuolation Dohle Bodies Pelger-Huet Anomaly Brenda Rods Platelet Estimate Clumped Platelets Plt Clumps, EDTA Large Platelets Giant Platelets Platelet Satelliting Plt Morphology Comment RBC Morphology Dimorphic RBCs Polychromasia Hypochromasia Poikilocytosis Anisocytosis Microcytosis Macrocytosis Spherocytes Pappenheimer Bodies Sickle Cells Target Cells Tear Drop Cells Ovalocytes Helmet Cells Fierro-Ewen Bodies [place] Rings [place] Cells Bite Cells Crenated Cell Elliptocytes Acanthocytes (Spur) Rouleaux Hemoglobin C Crystals Schistocytes Malaria parasites Son Bodies Hem Pathologist Commnt PT 19.7 H (12.2-14.9) Sec. INR 1.44 H (0.87-1.13) APTT 34.2 (24.2-36.6) Sec. Sodium (137-145) mmol/L Potassium (3.6-5.0) mmol/L Chloride (98-107) mmol/L Carbon Dioxide (22-30) mmol/L Anion Gap mmol/L BUN (7-17) mg/dL Creatinine (0.6-1.2) mg/dL Estimated GFR ml/min BUN/Creatinine Ratio % Glucose (65-100) mg/dL Lactic Acid (0.7-2.0) mmol/L Calcium (8.4-10.2) mg/dL Magnesium 2.00 (1.7-2.3) mg/dL Total Bilirubin (0.1-1.2) mg/dL AST (5-40) units/L ALT (7-56) units/L Alkaline Phosphatase (35-129) units/L Ammonia 18.0 L (25-60) umol/L Troponin T 0.018 (0.00-0.029) ng/mL Total Protein (6.3-8.2) g/dL Albumin (3.9-5) g/dL Albumin/Globulin Ratio % Lipase (13-60) units/L Plasma/Serum Alcohol (0-0.07) % 11/10/21 Range/Units 21:10 WBC (4.5-11.0) K/mm3 RBC (3.65-5.03) M/mm3 Hgb (10.1-14.3) gm/dl Hct (30.3-42.9) % MCV (79-97) fl MCH (28-32) pg MCHC (30-34) % RDW (13.2-15.2) % Plt Count (140-440) K/mm3 Add Manual Diff Total Counted Seg Neuts % (Manual) (40.0-70.0) % Band Neutrophils % % Lymphocytes % (Manual) (13.4-35.0) % Reactive Lymphs % (Man) % Monocytes % (Manual) (0.0-7.3) % Eosinophils % (Manual) (0.0-4.3) % Basophils % (Manual) (0.0-1.8) % Metamyelocytes % % Myelocytes % % Promyelocytes % % Blast Cells % % Nucleated RBC % Seg Neutrophils # Man (1.8-7.7) K/mm3 Band Neutrophils # K/mm3 Lymphocytes # (Manual) (1.2-5.4) K/mm3 Abs React Lymphs (Man) K/mm3 Monocytes # (Manual) (0.0-0.8) K/mm3 Eosinophils # (Manual) (0.0-0.4) K/mm3 Basophils # (Manual) (0.0-0.1) K/mm3 Metamyelocytes # K/mm3 Myelocytes # K/mm3 Promyelocytes # K/mm3 Blast Cells # K/mm3 WBC Morphology Hypersegmented Neuts Hyposegmented Neuts Hypogranular Neuts Smudge Cells Toxic Granulation Toxic Vacuolation Dohle Bodies Pelger-Huet Anomaly Brenda Rods Platelet Estimate Clumped Platelets Plt Clumps, EDTA Large Platelets Giant Platelets Platelet Satelliting Plt Morphology Comment RBC Morphology Dimorphic RBCs Polychromasia Hypochromasia Poikilocytosis Anisocytosis Microcytosis Macrocytosis Spherocytes Pappenheimer Bodies Sickle Cells Target Cells Tear Drop Cells Ovalocytes Helmet Cells Fierro-Ewen Bodies [place] Rings [place] Cells Bite Cells Crenated Cell Elliptocytes Acanthocytes (Spur) Rouleaux Hemoglobin C Crystals Schistocytes Malaria parasites Son Bodies Hem Pathologist Commnt PT (12.2-14.9) Sec. INR (0.87-1.13) APTT (24.2-36.6) Sec. Sodium (137-145) mmol/L Potassium (3.6-5.0) mmol/L Chloride (98-107) mmol/L Carbon Dioxide (22-30) mmol/L Anion Gap mmol/L BUN (7-17) mg/dL Creatinine (0.6-1.2) mg/dL Estimated GFR ml/min BUN/Creatinine Ratio % Glucose (65-100) mg/dL Lactic Acid (0.7-2.0) mmol/L Calcium (8.4-10.2) mg/dL Magnesium (1.7-2.3) mg/dL Total Bilirubin (0.1-1.2) mg/dL AST (5-40) units/L ALT (7-56) units/L Alkaline Phosphatase (35-129) units/L Ammonia (25-60) umol/L Troponin T (0.00-0.029) ng/mL Total Protein (6.3-8.2) g/dL Albumin (3.9-5) g/dL Albumin/Globulin Ratio % Lipase (13-60) units/L Plasma/Serum Alcohol < 0.01 (0-0.07) % Interpretation: no acute changes, other - Radiology Data Radiology results: report reviewed Chest x-ray: IMPRESSION: Left infrahilar opacities could represent atelectasis or pneumonia. No other acute findings. Signer Name: Samy Lugo MD CT head:IMPRESSION: 1. Age-related parenchymal volume loss and microvascular ischemic change. 2. No acute intracranial abnormality. Signer Name: Gopal Pittman MD CT abdomen and pelvis: IMPRESSION: 1. Interval development of a large left lower lobe mass as above, correlating with the abnormality on the chest radiograph obtained earlier today. 2. No other acute findings to explain the patient's abdominal pain or altered mental status. 3. Additional findings as above. Signer Name: Samy Lugo MD - Medical Decision Making This is a 76-year-old female with a history of hypertension, hyperlipidemia, SI A DH with a history of narcotic use, who presents with EMS with altered mental status and abdominal pain with distention of unknown time period. Vital signs are remarkable for tachycardia. Physical exam is concerning for a pale, uncomfortable, confused, cachectic patient with a distended and very tender abdomen. Patient's blood work is remarkable for anemia (hemoglobin of 9.9), hypokalemia (2.9), and elevated liver function test with a lipase of greater than 2000. Patient's chest x-ray and CT scan show a worsening left lower lung mass. Patient was given morphine and potassium, with mild improvement of her pain. Patient's son is at the bedside, and understands her diagnoses, and is amenable to the plan for her to be admitted. Patient care has been transferred to Dr. Toscano, the hospitalist. Critical care attestation.: If time is entered above; I have spent that time in minutes in the direct care of this critically ill patient, excluding procedure time. ED Disposition Clinical Impression: Hypokalemia, Mass of lower lobe of left lung Altered mental status Qualifiers: Altered mental status type: unspecified Qualified Code(s): R41.82 - Altered mental status, unspecified Pancreatitis Qualifiers: Chronicity: acute Pancreatitis type: unspecified pancreatitis type Acute pancreatitis complication: unspecified Qualified Code(s): K85.90 - Acute pancreatitis without necrosis or infection, unspecified Disposition: 09 ADMITTED INPATIENT Is pt being admited?: Yes Condition: Stable Time of Disposition: 22:42
--- NOTE | 2021-11-10 21:42 | XRay Report ---
CHEST 1 VIEW 11/10/2021 9:11 PM INDICATION / CLINICAL INFORMATION: Altered Mental Status. COMPARISON: 2 views of the chest from 09/11/2021. FINDINGS: SUPPORT DEVICES: None. HEART / MEDIASTINUM: Similar calcification of the aorta with normal size of the cardiac silhouette. LUNGS / PLEURA: There are nonspecific left infrahilar opacities with otherwise clear lungs. No signif icant pleural effusion. No pneumothorax. ADDITIONAL FINDINGS: No significant additional findings. IMPRESSION: Left infrahilar opacities could represent atelectasis or pneumonia. No other acute findings. Signer Name: Samy Lugo MD Signed: 11/10/2021 9:37 PM Workstation Name: [id number]
[2021-11-10 21:47] LABS: INR 1.44 (0.87-1.13)
[2021-11-10 21:48] LABS: Partial Thromboplastin Time 34.2 Sec. (24.2-36.6)
--- NOTE | 2021-11-10 21:50 | Cat Scan Report ---
CT HEAD WITHOUT CONTRAST INDICATION / CLINICAL INFORMATION: Altered Mental Status. TECHNIQUE: All CT scans at this location are performed using CT dose reduction for ALARA by means of automated e xposure control. COMPARISON: None available. FINDINGS: HEMORRHAGE: No evidence of intracranial hemorrhage or extra-axial fluid collection. EXTRA-AXIAL SPACES: Cortical sulci and sylvian fissures are mildly enlarged reflecting a degree of pa renchymal volume loss which is within normal limits for the patient's age of 76 years. Basilar cister ns have an unremarkable appearance. VENTRICULAR SYSTEM: The third and lateral ventricles are mildly enlarged reflecting presence of age r elated parenchymal volume loss. CEREBRAL PARENCHYMA: Periventricular and deep white matter lucency is observed. This is probably seco ndary to microvascular ischemic change. There is no indication of recent infarction. No areas of ence phalomalacia are identified. MIDLINE SHIFT OR HERNIATION: There is no mass effect. CEREBELLUM / BRAINSTEM: Brainstem has an unremarkable appearance. Age related cerebellar atrophy is n oted. MIDLINE STRUCTURES:Pituitary gland has an unremarkable appearance. No abnormalities are seen in the p ineal region. INTRACRANIAL VESSELS:Calcified atherosclerotic plaque is present along the course of the cavernous se gments of both internal carotid arteries. CRANIOCERVICAL JUNCTION:No significant abnormality. ORBITS: Patient is status post bilateral cataract surgery. There is evidence of remote medial wall bl owout fracture on the right. No additional. SOFT TISSUES of HEAD: No significant abnormality. CALVARIUM: Evaluation of bone windows reveals no abnormalities. PARANASAL SINUSES / MASTOID AIR CELLS: Paranasal sinuses are free from inflammatory mucosal disease. Mastoid air cells are normally pneumatized. IMPRESSION: 1. Age-related parenchymal volume loss and microvascular ischemic change. 2. No acute intracranial abnormality. Signer Name: Gopal Pittman MD Signed: 11/10/2021 9:45 PM Workstation Name: [id number]
--- NOTE | 2021-11-10 21:54 | Cat Scan Report ---
CT ABDOMEN AND PELVIS WITHOUT CONTRAST INDICATION / CLINICAL INFORMATION: abdominal pain and altered mental status. TECHNIQUE: Axial CT images were obtained through the abdomen and pelvis without IV contrast. All CT scans at [facility] are performed using CT dose reduction for ALARA by means of automated exposure control. COMPARISON: One view of the chest performed today. CT abdomen with and without contrast from 12/27/2019. FINDINGS: LOWER CHEST: Not seen on the prior CT, there is a medial and anterior left lower lobe mass with possi ble mediastinal invasion measuring 5.4 x 4.5 cm on image 1 of series 2. Probable associated satellite nodules are present. No other significant abnormality. LIVER: No significant abnormality. GALLBLADDER: No significant abnormality. BILE DUCTS: No significant abnormality. PANCREAS: No significant abnormality. SPLEEN: No significant abnormality. ADRENALS: No significant abnormality. RIGHT KIDNEY/URETER: No significant abnormality. LEFT KIDNEY/URETER: Multiple left renal cysts are again seen without acute findings. STOMACH/SMALL BOWEL: No significant abnormality. COLON: There is noninflamed generalized diverticulosis without other significant abnormalities. APPENDIX: No significant abnormality. PERITONEUM: A small amount of free fluid is seen along the pelvis and along the liver and spleen. No free air. No fluid collection. LYMPH NODES: No significant adenopathy. VASCULATURE: Diffuse atherosclerosis is again seen with focal outpouching along the infrarenal abdomi nal aorta that appears similar to the prior exam within the limitations of noncontrast imaging. URINARY BLADDER: No significant abnormality. REPRODUCTIVE ORGANS: No significant abnormality. ADDITIONAL FINDINGS: None. BONES: No acute findings. No significant interval changes. IMPRESSION: 1. Interval development of a large left lower lobe mass as above, correlating with the abnormality on the chest radiograph obtained earlier today. 2. No other acute findings to explain the patient's abdominal pain or altered mental status. 3. Additional findings as above. Signer Name: Samy Lugo MD Signed: 11/10/2021 9:49 PM Workstation Name: [id number]
[2021-11-10] MEDS ORDERED: DEXTROSE 50% IN WATER (25GM) 50 ML SYRINGE IV PRN (22:52)
[2021-11-10] MEDS ORDERED: ACETAMINOPHEN 325 MG TAB PO PRN (22:52)
--- NOTE | 2021-11-10 23:02 | History and Physical Report ---
History of Present Illness Date of examination: 11/10/21 Date of admission: 11/10/21 Chief complaint: Altered mental status History of present illness: 76-year-old female brought in by ambulance with history of hypertension, hyperlipidemia, and SIADH for altered mental status and abdominal pain with distended abdomen for unknown period of time. Patient is alert and oriented to person and situation, but not to place or time. Patient is unable to tell when her symptoms started. Patient does endorse abdominal pain and constipation. Patient denies vomiting. Patient denies fever or chills. Patient appears weak and cachectic, but denies decreased appetite or decreased p.o. intake. Unknown if this has occurred, previously. Unknown if there are alleviating or aggravating factors, but patient reportedly does take opiates. Initial CT scan of the head shows Age-related parenchymal volume loss and microvascular ischemic change. No acute intracranial abnormality. CT abdomen and pelvis: IMPRESSION: 1. Interval development of a large left lower lobe mass as above, correlating with the abnormality on the chest radiograph obtained earlier today. 2. No other acute findings to explain the patient's abdominal pain or altered mental status. 3. Additional findings as above. Past History Past Medical History: arthritis (Hyponatremia), diabetes, hypertension, other (Breast cancer) Past Surgical History: Other ( Yes (BX)) Social history: no significant social history Family history: hypertension Medications and Allergies Allergies Allergy/AdvReac Type Severity Reaction Status Date / Time aspirin Allergy Hives/upset Verified 09/12/21 15:06 stomach Home Medications Medication Instructions Recorded Confirmed Last Taken Type Pravastatin [Pravachol] 40 mg PO QHS 04/14/17 09/12/21 09/10/21 History metFORMIN [Glucophage] 500 mg PO BID 04/14/17 09/12/21 09/10/21 History Anastrozole [Arimidex] 1 mg PO DAILY 09/12/21 09/12/21 09/10/21 History Diltiazem HCl [Cardizem LA] 120 mg PO QDAY 09/12/21 09/12/21 09/10/21 History Metoprolol Xl [Toprol Xl] 25 mg PO BID 09/12/21 09/12/21 09/10/21 History hydrALAZINE [Apresoline TAB] 25 mg PO BID 09/12/21 09/12/21 09/10/21 History hydroCHLOROthiazide [HCTZ] 25 mg PO QDAY 09/12/21 09/12/21 09/10/21 History Losartan [Cozaar] 50 mg PO QDAY tablet 09/16/21 Unknown Rx Tolvaptan [Samsca] 15 mg PO Q24H #30 tablet 09/16/21 Unknown Rx dilTIAZem CD [Cardizem CD] 120 mg PO DAILY capsule 09/16/21 Unknown Rx Active Meds: Active Medications Sodium Chloride (Nacl 0.9% 1000 Ml) 1,000 mls @ 125 mls/hr IV ONCE ONE Stop: 11/11/21 04:55 Last Admin: 11/10/21 21:30 Dose: 125 mls/hr Review of Systems Constitutional: fatigue, weakness, malaise, other (Altered mental status) Exam - Constitutional Vitals: Temp Pulse Resp BP Pulse Ox 98.7 F 99 H 18 150/78 96 11/10/21 19:07 11/10/21 19:07 11/10/21 19:07 11/10/21 19:07 11/10/21 19:07 General appearance: Present: no acute distress, well-nourished - EENT Eyes: Present: PERRL ENT: hearing intact, clear oral mucosa - Neck Neck: Present: supple, normal ROM - Respiratory Respiratory effort: normal Respiratory: bilateral: CTA - Cardiovascular Heart Sounds: Present: S1 & S2. Absent: rub, click - Extremities Extremities: pulses symmetrical, No edema Peripheral Pulses: within normal limits - Abdominal General gastrointestinal: Present: soft, non-tender, non-distended, normal bowel sounds Female genitourinary: Present: normal - Integumentary Integumentary: Present: clear, warm, dry - Musculoskeletal Musculoskeletal: gait normal, strength equal bilaterally - Neurologic Neurologic: CNII-XII intact, moves all extremities, other (Patient is altered mental status) HEART Score - HEART Score Troponin: Troponin T 0.018 ng/mL (0.00-0.029) 11/10/21 21:10 Results - Labs CBC & Chem 7: 11/10/21 19:26 11/10/21 19:26 Labs: Laboratory Last Values WBC 8.2 K/mm3 (4.5-11.0) 11/10/21 19: RBC 3.06 M/mm3 (3.65-5.03) L 11/10/21 19: Hgb 9.9 gm/dl (10.1-14.3) L 11/10/21 19: Hct 28.2 % (30.3-42.9) L 11/10/21 19: MCV 92 fl (79-97) 11/10/21 19: MCH 32 pg (28-32) 11/10/21 19: MCHC 35 % (30-34) H 11/10/21 19: RDW 16.0 % (13.2-15.2) H 11/10/21 19: Plt Count 187 K/mm3 (140-440) 11/10/21 19: Add Manual Diff Complete 11/10/21: Total Counted 100 11/10/21 19: Seg Neuts % (Manual) 94.0 % (40.0-70.0) H 11/10/21 19: Band Neutrophils % 1.0 % 11/10/21 19: Lymphocytes % (Manual) 2.0 % (13.4-35.0) L 11/10/21 19: Reactive Lymphs % (Man) 0 % 11/10/21 19: Monocytes % (Manual) 3.0 % (0.0-7.3) 11/10/21: Eosinophils % (Manual) 0 % (0.0-4.3) 11/10/21: Basophils % (Manual) 0 % (0.0-1.8) 11/10/21 19: Metamyelocytes % 0 % 11/10/21 19: Myelocytes % 0 % 11/10/21 19: Promyelocytes % 0 % 11/10/21 19: Blast Cells % 0 % 11/10/21 19: Nucleated RBC % Not Reportable 11/10/21: Seg Neutrophils # Man 7.7 K/mm3 (1.8-7.7) 11/10/21 19: Band Neutrophils # 0.1 K/mm3 11/10/21 19: Lymphocytes # (Manual) 0.2 K/mm3 (1.2-5.4) L 11/10/21 19: Abs React Lymphs (Man) 0.0 K/mm3 11/10/21 19:26 Monocytes # (Manual) 0.2 K/mm3 (0.0-0.8) 11/10/21 19:26 Eosinophils # (Manual) 0.0 K/mm3 (0.0-0.4) 11/10/21 19:26 Basophils # (Manual) 0.0 K/mm3 (0.0-0.1) 11/10/21 19:26 Metamyelocytes # 0.0 K/mm3 11/10/21 19:26 Myelocytes # 0.0 K/mm3 11/10/21 19:26 Promyelocytes # 0.0 K/mm3 11/10/21 19:26 Blast Cells # 0.0 K/mm3 11/10/21 19:26 WBC Morphology Not Reportable 11/10/21 19:26 Hypersegmented Neuts Not Reportable 11/10/21 19:26 Hyposegmented Neuts Not Reportable 11/10/21 19:26 Hypogranular Neuts Not Reportable 11/10/21 19:26 Smudge Cells Not Reportable 11/10/21 19:26 Toxic Granulation Not Reportable 11/10/21 19:26 Toxic Vacuolation Not Reportable 11/10/21 19:26 Dohle Bodies Not Reportable 11/10/21 19:26 Pelger-Huet Anomaly Not Reportable 11/10/21 19:26 Brenda Rods Not Reportable 11/10/21 19:26 Platelet Estimate Consistent w auto 11/10/21 19:26 Clumped Platelets Not Reportable 11/10/21 19:26 Plt Clumps, EDTA Not Reportable 11/10/21 19:26 Large Platelets Not Reportable 11/10/21 19:26 Giant Platelets Not Reportable 11/10/21 19:26 Platelet Satelliting Not Reportable 11/10/21 19:26 Plt Morphology Comment Not Reportable 11/10/21 19:26 RBC Morphology Not Reportable 11/10/21 19:26 Dimorphic RBCs Not Reportable 11/10/21 19:26 Polychromasia Not Reportable 11/10/21 19:26 Hypochromasia 2+ 11/10/21 19:26 Poikilocytosis Not Reportable 11/10/21 19:26 Anisocytosis Not Reportable 11/10/21 19:26 Microcytosis Not Reportable 11/10/21 19:26 Macrocytosis Not Reportable 11/10/21 19:26 Spherocytes Rare 11/10/21 19:26 Pappenheimer Bodies Not Reportable 11/10/21 19:26 Sickle Cells Not Reportable 11/10/21 19:26 Target Cells 1+ 11/10/21 19:26 Tear Drop Cells Not Reportable 11/10/21 19:26 Ovalocytes Few 11/10/21 19:26 Helmet Cells Not Reportable 11/10/21 19:26 [place] Bodies Not Reportable 11/10/21 19:26 [place] Rings Not Reportable 11/10/21 19:26 [place] Cells Not Reportable 11/10/21 19:26 Bite Cells Not Reportable 11/10/21 19:26 Crenated Cell Not Reportable 11/10/21 19:26 Elliptocytes Not Reportable 11/10/21 19:26 Acanthocytes (Spur) Few 11/10/21 19:26 Rouleaux Not Reportable 11/10/21 19:26 Hemoglobin C Crystals Not Reportable 11/10/21 19:26 Schistocytes Rare 11/10/21 19:26 Malaria parasites Not Reportable 11/10/21 19:26 Son Bodies Not Reportable 11/10/21 19:26 Hem Pathologist Commnt No 11/10/21 19:26 PT 19.7 Sec. (12.2-14.9) H 11/10/21 21:10 INR 1.44 (0.87-1.13) H 11/10/21 21:10 APTT 34.2 Sec. (24.2-36.6) 11/10/21 21:10 Sodium 138 mmol/L (137-145) 11/10/21 19:26 Potassium 2.9 mmol/L (3.6-5.0) L* 11/10/21 19:26 Chloride 92.5 mmol/L (98-107) L 11/10/21 19:26 Carbon Dioxide 30 mmol/L (22-30) 11/10/21 19:26 Anion Gap 18 mmol/L 11/10/21 19:26 BUN 30 mg/dL (7-17) H 11/10/21 19:26 Creatinine 1.5 mg/dL (0.6-1.2) H 11/10/21 19:26 Estimated GFR 41 ml/min 11/10/21 19:26 BUN/Creatinine Ratio 20 % 11/10/21 19:26 Glucose 134 mg/dL (65-100) H 11/10/21 19:26 Lactic Acid 1.90 mmol/L (0.7-2.0) 11/10/21 21:10 Calcium 8.9 mg/dL (8.4-10.2) 11/10/21 19:26 Magnesium 2.00 mg/dL (1.7-2.3) 11/10/21 21:10 Total Bilirubin 2.60 mg/dL (0.1-1.2) H 11/10/21 19:26 AST 135 units/L (5-40) H 11/10/21 19:26 ALT 84 units/L (7-56) H 11/10/21 19:26 Alkaline Phosphatase 311 units/L (35-129) H 11/10/21 19:26 Ammonia 18.0 umol/L (25-60) L 11/10/21 21:10 Troponin T 0.018 ng/mL (0.00-0.029) 11/10/21 21:10 Total Protein 5.3 g/dL (6.3-8.2) L 11/10/21 19:26 Albumin 3.2 g/dL (3.9-5) L 11/10/21 19:26 Albumin/Globulin Ratio 1.5 % 11/10/21 19:26 Lipase 2550 units/L (13-60) H 11/10/21 19:26 Plasma/Serum Alcohol < 0.01 % (0-0.07) 11/10/21 21:10 - Imaging and Cardiology Chest x-ray: report reviewed CT scan - abdomen: report reviewed CT Scan - head: report reviewed Assessment and Plan VTE prophylaxis?: Mechanical Plan of care discussed with patient/family: Yes - Patient Problems (1) Acute metabolic encephalopathy Status: Acute Plan to address problem: Admit the patient to the medical telemetry. NPO. Normal saline at the rate of 100 cc/h. Metabolic encephalopathy most likely secondary to mass in the left lower lobe, pancreatitis and hypokalemia. Pepcid 20 mg IV every 12 hrs. Zofran 4 mg IV every 6 hours as needed. Reconsult GI for evaluation (2) Hypokalemia Status: Acute Plan to address problem: Potassium is supplemented. We will recheck the BMP in the morning. We will continue the home medication (3) Mass of lower lobe of left lung Status: Acute Plan to address problem: Left lower lobe mass most likely secondary to breast cancer. Consult oncology in the morning for further evaluation and treatment (4) Pancreatitis Status: Acute Plan to address problem: NPO. Normal saline at the rate of 100 cc/h. Pepcid 20 mg IV every 12 hrs. Zofran 4 mg IV every 6 hours as needed. Reconsult GI for evaluation (5) Hyponatremia Status: Acute Plan to address problem: Normal saline at the rate of 100 cc/h. Recheck BMP in the morning. We will monitor the patient closely (6) Hypertension Status: Chronic Qualifiers: Plan to address problem: Diltiazem 120 mg p.o. daily. Hydralazine 25 mg p.o. twice daily. Losartan 50 mg p.o. daily. We will monitor the blood pressure closely (7) T2DM (type 2 diabetes mellitus) Status: Chronic Plan to address problem: Accu-Chek every 6 hours with Humalog moderate dose coverage. Diabetic education. Recheck BMP in the morning (8) DVT prophylaxis Status: Acute Plan to address problem: SCD for DVT prophylaxis. Pepcid 20 mg IV every 12 hours for GI prophylaxis. Patient is a full code
[2021-11-11] MEDS: MORPHINE 4 MG/1 ML INJ IV PRN ×2 (00:01→09:51)
[2021-11-11] MEDS: ONDANSETRON 4 MG/2 ML INJ IV PRN ×2 (00:02→09:51)
[2021-11-11 04:25] LABS: Calcium 8.8 mg/dL (8.4-10.2)
[2021-11-11 04:39] LABS: Hematocrit 29.2 % (30.3-42.9); Hemoglobin 9.9 gm/dl (10.1-14.3); Mean Corpuscular HGB Conc 34 % (30-34); Mean Corpuscular Volume 93 fl (79-97); Platelet Count 193 K/mm3 (140-440); Red Blood Count 3.14 M/mm3 (3.65-5.03)
[2021-11-11 05:33] LABS: Total Cells Counted 100
[2021-11-11 05:34] LABS: Band Neutrophils # (Manual) 0.1 K/mm3; Basophils % (Manual) 0 % (0.0-1.8); Eosinophils % (Manual) 0 % (0.0-4.3); Hypochromasia 2+; Schistocytes Rare
[2021-11-11 05:35] LABS: Ovalocytes Few; Platelet Estimate Consistent w Auto; Target Cells 1+
[2021-11-11] MEDS: INSULIN LISPRO 100 UNIT/ML SUB-Q SCH ×2 (08:27→18:57)
[2021-11-11 09:41] LABS: Bilirubin,Direct 2.2 mg/dL (0-0.2)
--- NOTE | 2021-11-11 09:49 | Progress Note ---
Assessment and Plan Assessment and plan: -- Acute toxic metabolic encephalopathy/POA/ Normal saline at the rate of 100 cc/h. Metabolic encephalopathy most likely secondary to mass in the left lower lobe, pancreatitis and hypokalemia. Treat the underlying cause, neurochecks and supportive care CT head without contrast findings reviewed --Hypokalemia Potassium is supplemented. Closely monitor electrolytes --History of breast cancer status post surgery; -Mass lower lobe of left lung/possible metastatic lung cancer Patient has past medical history of breast cancer status postsurgery. Obtain medical records from [facility] consulted telemetry hematology oncologist Will also consult pulmonary for possible lung biopsy CT-guided versus bronchoscopic --Acute pancreatitis; Clear liquids IV fluids. IV Pepcid Pain medications. On clear liquid diet GI consulted , evaluation noted and appreciated --Acute transaminitis; GI following, otitis panel negative Closely monitor transaminases Abdominal ultrasound if needed GI recommended MRI abdomen which is pending -Hyponatremia; Normal saline, closely monitor electrolytes, supportive care -- Hypertension; moderate control Continue current antihypertensives As needed medications --T2DM (type 2 diabetes mellitus) Accu-Cheks sliding scale coverage, ADA diet Insulin as needed --Full CODE STATUS - DVT prophylaxis SCD for DVT prophylaxis. We will closely monitor the patient and adjust management as needed Plan of care reviewed with the patient. Her family members. Her nurse and the case management Will try to get records from patient's hematology oncologist, [facility] Disposition; follow clinically, follow medical records from outside Follow hematology oncology, GI, consulted pulmonary Plan of care also reviewed with the patient's family members at bedside Advance care planning; 30 minutes I discussed in detail with the patient and the family members at the bedside patient's condition, patient's diagnosis, patient's poor prognosis, tests and reports, patient's poor prognosis, and the treatment plans. Patient and the family members verbalized understanding. History Interval history: 76-year-old female patient with past history of breast cancer s/p surgery in remission as per patient's family member, was recently admitted to [facility] was noted to have lung mass and right middle lobe subpleural nodes possibly metastasis as well as increased density of left renal lesion per CT. chest and abdomen done on 10/27/2021. Patient was admitted to our hospital with altered level of consciousness, noted to have multiple electrolyte abnormalities/hypokalemia, acute kidney injury acute pancreatitis with lipase of [address] head age-related parenchymal volume loss and microvascular ischemic changes no acute intracranial abnormality noted . CT abdomen and pelvis show left lower lobe mass Patient complains of difficulty swallowing however able to take liquids. Patient's medical records are requested from [facility]. Today patient is very weak chronically ill looking, responding to simple questions appropriately Initially said unable to eat however as per nurse patient is tolerating liquid diet Multiple family members at the bedside Vital signs noted Hospitalist Physical - Constitutional Vitals: Temp Pulse Resp BP Pulse Ox 98.7 F 118 H 18 151/79 93 11/10/21 19:07 11/11/21 07:25 11/11/21 07:25 11/11/21 07:25 11/11/21 07:25 General appearance: Present: well-nourished, cachectic, other (Chronically ill looking) - EENT Eyes: Present: PERRL, EOM intact - Neck Neck: Present: supple, normal ROM - Respiratory Respiratory effort: normal Respiratory: bilateral: diminished, rales, negative: rhonchi, wheezing - Cardiovascular Rhythm: regular Heart Sounds: Present: S1 & S2 - Extremities Extremities: no ischemia, No edema - Abdominal General gastrointestinal: soft, non-tender, non-distended, normal bowel sounds - Integumentary Integumentary: Present: clear, warm - Psychiatric Psychiatric: appropriate mood/affect, cooperative - Neurologic Neurologic: moves all extremities HEART Score - HEART Score Troponin: Troponin T 0.018 ng/mL (0.00-0.029) 11/10/21 21:10 Results - Labs CBC & Chem 7: 11/11/21 03:43 11/11/21 03:43 Labs: Laboratory Last Values WBC 8.8 K/mm3 (4.5-11.0) 11/11/21 03:43 RBC 3.14 M/mm3 (3.65-5.03) L 11/11/21 03:43 Hgb 9.9 gm/dl (10.1-14.3) L 11/11/21 03:43 Hct 29.2 % (30.3-42.9) L 11/11/21 03:43 MCV 93 fl (79-97) 11/11/21 03:43 MCH 32 pg (28-32) 11/11/21 03:43 MCHC 34 % (30-34) 11/11/21 03:43 RDW 16.0 % (13.2-15.2) H 11/11/21 03:43 Plt Count 193 K/mm3 (140-440) 11/11/21 03:43 Add Manual Diff Complete 11/11/21 03:43 Total Counted 100 11/11/21 03:43 Seg Neuts % (Manual) 93.0 % (40.0-70.0) H 11/11/21 03:43 Band Neutrophils % 1.0 % 11/11/21 03:43 Lymphocytes % (Manual) 1.0 % (13.4-35.0) L 11/11/21 03:43 Reactive Lymphs % (Man) 0 % 11/11/21 03:43 Monocytes % (Manual) 5.0 % (0.0-7.3) 11/11/21 03:43 Eosinophils % (Manual) 0 % (0.0-4.3) 11/11/21 03:43 Basophils % (Manual) 0 % (0.0-1.8) 11/11/21 03:43 Metamyelocytes % 0 % 11/11/21 03:43 Myelocytes % 0 % 11/11/21 03:43 Promyelocytes % 0 % 11/11/21 03:43 Blast Cells % 0 % 11/11/21 03:43 Nucleated RBC % 2.0 % (0.0-0.9) H 11/11/21 03:43 Seg Neutrophils # Man 8.2 K/mm3 (1.8-7.7) H 11/11/21 03:43 Band Neutrophils # 0.1 K/mm3 11/11/21 03:43 Lymphocytes # (Manual) 0.1 K/mm3 (1.2-5.4) L 11/11/21 03:43 Abs React Lymphs (Man) 0.0 K/mm3 11/11/21 03:43 Monocytes # (Manual) 0.4 K/mm3 (0.0-0.8) 11/11/21 03:43 Eosinophils # (Manual) 0.0 K/mm3 (0.0-0.4) 11/11/21 03:43 Basophils # (Manual) 0.0 K/mm3 (0.0-0.1) 11/11/21 03:43 Metamyelocytes # 0.0 K/mm3 11/11/21 03:43 Myelocytes # 0.0 K/mm3 11/11/21 03:43 Promyelocytes # 0.0 K/mm3 11/11/21 03:43 Blast Cells # 0.0 K/mm3 11/11/21 03:43 WBC Morphology Not Reportable 11/11/21 03:43 Hypersegmented Neuts Not Reportable 11/11/21 03:43 Hyposegmented Neuts Not Reportable 11/11/21 03:43 Hypogranular Neuts Not Reportable 11/11/21 03:43 Smudge Cells Not Reportable 11/11/21 03:43 Toxic Granulation Not Reportable 11/11/21 03:43 Toxic Vacuolation Not Reportable 11/11/21 03:43 Dohle Bodies Not Reportable 11/11/21 03:43 Pelger-[place]uet Anomaly Not Reportable 11/11/21 03:43 Brenda Rods Not Reportable 11/11/21 03:43 Platelet Estimate Consistent w auto 11/11/21 03:43 Clumped Platelets Not Reportable 11/11/21 03:43 Plt Clumps, EDTA Not Reportable 11/11/21 03:43 Large Platelets Not Reportable 11/11/21 03:43 Giant Platelets Not Reportable 11/11/21 03:43 Platelet Satelliting Not Reportable 11/11/21 03:43 Plt Morphology Comment Not Reportable 11/11/21 03:43 RBC Morphology Not Reportable 11/11/21 03:43 Dimorphic RBCs Not Reportable 11/11/21 03:43 Polychromasia Not Reportable 11/11/21 03:43 Hypochromasia 2+ 11/11/21 03:43 Poikilocytosis Not Reportable 11/11/21 03:43 Anisocytosis Not Reportable 11/11/21 03:43 Microcytosis 1+ 11/11/21 03:43 Macrocytosis Not Reportable 11/11/21 03:43 Spherocytes Not Reportable 11/11/21 03:43 Pappenheimer Bodies Not Reportable 11/11/21 03:43 Sickle Cells Not Reportable 11/11/21 03:43 Target Cells 1+ 11/11/21 03:43 Tear Drop Cells Not Reportable 11/11/21 03:43 Ovalocytes Few 11/11/21 03:43 Helmet Cells Not Reportable 11/11/21 03:43 Fier[place] Bodies Not Reportable 11/11/21 03:43 [place] Rings Not Reportable 11/11/21 03:43 [place] Cells Not Reportable 11/11/21 03:43 Bite Cells Not Reportable 11/11/21 03:43 Crenated Cell Not Reportable 11/11/21 03:43 Elliptocytes Not Reportable 11/11/21 03:43 Acanthocytes (Spur) Few 11/11/21 03:43 Rouleaux Not Reportable 11/11/21 03:43 Hemoglobin C Crystals Not Reportable 11/11/21 03:43 Schistocytes Rare 11/11/21 03:43 Malaria parasites Not Reportable 11/11/21 03:43 Son Bodies Not Reportable 11/11/21 03:43 Hem Pathologist Commnt No 11/11/21 03:43 PT 19.7 Sec. (12.2-14.9) H 11/10/21 21:10 INR 1.44 (0.87-1.13) H 11/10/21 21:10 APTT 34.2 Sec. (24.2-36.6) 11/10/21 21:10 Sodium 140 mmol/L (137-145) 11/11/21 03:43 Potassium 3.5 mmol/L (3.6-5.0) L D 11/11/21 03:43 Chloride 95.0 mmol/L (98-107) L 11/11/21 03:43 Carbon Dioxide 31 mmol/L (22-30) H 11/11/21 03:43 Anion Gap 18 mmol/L 11/11/21 03:43 BUN 32 mg/dL (7-17) H 11/11/21 03:43 Creatinine 1.3 mg/dL (0.6-1.2) H 11/11/21 03:43 Estimated GFR 48 ml/min 11/11/21 03:43 BUN/Creatinine Ratio 25 % 11/11/21 03:43 Glucose 126 mg/dL (65-100) H 11/11/21 03:43 Lactic Acid 1.90 mmol/L (0.7-2.0) 11/10/21 21:10 Calcium 8.8 mg/dL (8.4-10.2) 11/11/21 03:43 Magnesium 2.00 mg/dL (1.7-2.3) 11/10/21 21:10 Total Bilirubin 2.70 mg/dL (0.1-1.2) H 11/11/21 08:04 Direct Bilirubin 2.2 mg/dL (0-0.2) H 11/11/21 08:04 Indirect Bilirubin 0.5 mg/dL 11/11/21 08:04 AST 110 units/L (5-40) H 11/11/21 08:04 ALT 82 units/L (7-56) H 11/11/21 08:04 Alkaline Phosphatase 312 units/L (35-129) H 11/11/21 08:04 Ammonia 18.0 umol/L (25-60) L 11/10/21 21:10 Troponin T 0.018 ng/mL (0.00-0.029) 11/10/21 21:10 Total Protein 5.2 g/dL (6.3-8.2) L 11/11/21 08:04 Albumin 3.0 g/dL (3.9-5) L 11/11/21 08:04 Albumin/Globulin Ratio 1.4 % 11/11/21 08:04 Lipase 2550 units/L (13-60) H 11/10/21 19:26 Plasma/Serum Alcohol < 0.01 % (0-0.07) 11/10/21 21:10 Active Medications - Current Medications Current Medications: Generic Name Dose Route Start Last Admin Trade Name Freq PRN Reason Stop Dose Admin Acetaminophen 650 mg 11/10/21 22:52 Acetaminophen 325 Mg Tab PO Q4H PRN Pain MILD(1-3)/Fever >100.5/HERRERA Dextrose 50 ml 11/10/21 22:52 Dextrose 50% In Water (25gm) 50 Ml Syringe IV Q30MIN PRN Hypoglycemia Protocol Diltiazem HCl 120 mg 11/11/21 10:00 Diltiazem Cd 120 Mg Cap PO DAILY SIOBHAN Famotidine 20 mg 11/11/21 10:00 Famotidine 20 Mg/2 Ml Inj IV DAILY SIOBHAN Hydralazine HCl 25 mg 11/11/21 10:00 Hydralazine 25 Mg Tab PO BID SIOBHAN Hydrochlorothiazide 25 mg 11/11/21 10:00 Hydrochlorothiazide 25 Mg Tab PO QDAY [facility] Sodium Chloride 1,000 mls @ 100 mls/hr 11/10/21 23:00 Nacl 0.9% 1000 Ml IV DIRECT [facility] Insulin Human Lispro 0 unit 11/11/21 00:00 11/11/21 08:27 Insulin Lispro 100 Unit/Ml SUB-Q Not Given Q6HR [facility] Protocol Losartan Potassium 50 mg 11/11/21 10:00 Losartan 50 Mg Tab PO QDAY [facility] Metoprolol Succinate 25 mg 11/11/21 10:00 Metoprolol Succinate Xl 25 Mg Tab PO BID [facility] Miscellaneous Medication 1 mg 11/11/21 10:00 Anastrozole [Arimidex] PO DAILY [facility] Morphine Sulfate 2 mg 11/10/21 22:52 Morphine 2 Mg/1 Ml Inj IV Q4H PRN Pain, Moderate (4-6) Morphine Sulfate 4 mg 11/10/21 22:52 11/11/21 00:01 Morphine 4 Mg/1 Ml Inj IV 4 mg Q4H PRN Administration Pain , Severe (7-10) Ondansetron HCl 4 mg 11/10/21 22:52 11/11/21 00:02 Ondansetron 4 Mg/2 Ml Inj IV 4 mg Q8H PRN Administration Nausea And Vomiting Sodium Chloride 10 ml 11/11/21 10:00 Sodium Chloride 0.9% 10 Ml Flush Syringe IV BID [facility] Sodium Chloride 10 ml 11/10/21 22:52 Sodium Chloride 0.9% 10 Ml Flush Syringe IV PRN PRN LINE FLUSH
[2021-11-11] MEDS ORDERED: NON-FORMULARY EACH (Anastrozole [Arimidex] 1 MG Tablet) PO SCH (10:00)
[2021-11-11] MEDS ORDERED: FAMOTIDINE 20 MG/2 ML INJ IV SCH (10:00)
[2021-11-11] MEDS ORDERED: hydrALAZINE 25 MG TAB PO SCH (10:00)
[2021-11-11] MEDS: dilTIAZem CD 120 MG CAP PO SCH (10:37)
[2021-11-11] MEDS: LOSARTAN 50 MG TAB PO SCH (10:38)
[2021-11-11] MEDS: hydroCHLOROthiazide 25 MG TAB PO SCH (10:38)
[2021-11-11] MEDS: METOPROLOL SUCCINATE XL 25 MG TAB PO SCH (10:38)
--- NOTE | 2021-11-11 11:05 | Gastroenterology Consultation ---
History of Present Illness - Reason for Consult Consult date: 11/11/21 - History of Present Illness Ms. Anand is a 76 y/o F who GI has been consulted on for elevated LFT's. Pt does not assist with hx, but family present and provides information. Family states that they called EMS as pt was not acting herself. Reports recent previous admissions at both [facility] and [facility]. Family tells me that pt was found to have low sodium when at [facility] then discharged. She was then admitted to [facility] for low sodium x2 wks ago and was found to also have a mass on her lung. Currently followed by Dr. Matias (PCP) and Dr. Guerin (oncology). Family reports that pt has lost >40lbs and has not been eating 2/2 c/o pain with swallowing. Report occasional vomiting, but deny hematemesis or coffee ground emesis. Family unaware of pts current bowel habits. Deny previous colon/EGD. Past History Past Medical History: arthritis (Hyponatremia), diabetes, hypertension, other (Breast cancer) Past Surgical History: Other ( Yes (BX)) Social history: no significant social history Family history: hypertension Medications and Allergies Allergies Allergy/AdvReac Type Severity Reaction Status Date / Time aspirin Allergy Hives/upset Verified 09/12/21 15:06 stomach Home Medications Medication Instructions Recorded Confirmed Last Taken Type Pravastatin [Pravachol] 40 mg PO QHS 04/14/17 09/12/21 09/10/21 History metFORMIN [Glucophage] 500 mg PO BID 04/14/17 09/12/21 09/10/21 History Anastrozole [Arimidex] 1 mg PO DAILY 09/12/21 09/12/21 09/10/21 History Diltiazem HCl [Cardizem LA] 120 mg PO QDAY 09/12/21 09/12/21 09/10/21 History Metoprolol Xl [Toprol Xl] 25 mg PO BID 09/12/21 09/12/21 09/10/21 History hydrALAZINE [Apresoline TAB] 25 mg PO BID 09/12/21 09/12/21 09/10/21 History hydroCHLOROthiazide [HCTZ] 25 mg PO QDAY 09/12/21 09/12/21 09/10/21 History Losartan [Cozaar] 50 mg PO QDAY tablet 09/16/21 Unknown Rx Tolvaptan [Samsca] 15 mg PO Q24H #30 tablet 09/16/21 Unknown Rx dilTIAZem CD [Cardizem CD] 120 mg PO DAILY capsule 09/16/21 Unknown Rx Active Meds: Active Medications Acetaminophen (Acetaminophen 325 Mg Tab) 650 mg PO Q4H PRN PRN Reason: Pain MILD(1-3)/Fever >100.5/HERRERA Dextrose (Dextrose 50% In Water (25gm) 50 Ml Syringe) 50 ml IV Q30MIN PRN; Protocol PRN Reason: Hypoglycemia Diltiazem HCl (Diltiazem Cd 120 Mg Cap) 120 mg PO DAILY [facility] Last Admin: 11/11/21 10:37 Dose: Not Given Famotidine (Famotidine 20 Mg/2 Ml Inj) 20 mg IV DAILY [facility] Hydralazine HCl (Hydralazine 25 Mg Tab) 25 mg PO BID [facility] Last Admin: 11/11/21 10:37 Dose: Not Given Hydrochlorothiazide (Hydrochlorothiazide 25 Mg Tab) 25 mg PO QDAY [facility] Last Admin: 11/11/21 10:38 Dose: Not Given Sodium Chloride (Nacl 0.9% 1000 Ml) 1,000 mls @ 100 mls/hr IV DIRECT [facility] Insulin Human Lispro (Insulin Lispro 100 Unit/Ml) 0 unit SUB-Q Q6HR [facility]; Protocol Last Admin: 11/11/21 08:27 Dose: Not Given Losartan Potassium (Losartan 50 Mg Tab) 50 mg PO QDAY [facility] Last Admin: 11/11/21 10:38 Dose: Not Given Metoprolol Succinate (Metoprolol Succinate Xl 25 Mg Tab) 25 mg PO BID [facility] Last Admin: 11/11/21 10:38 Dose: Not Given Miscellaneous Medication (Anastrozole [Arimidex]) 1 mg PO DAILY [facility] Morphine Sulfate (Morphine 2 Mg/1 Ml Inj) 2 mg IV Q4H PRN PRN Reason: Pain, Moderate (4-6) Morphine Sulfate (Morphine 4 Mg/1 Ml Inj) 4 mg IV Q4H PRN PRN Reason: Pain , Severe (7-10) Last Admin: 11/11/21 09:51 Dose: 4 mg Ondansetron HCl (Ondansetron 4 Mg/2 Ml Inj) 4 mg IV Q8H PRN PRN Reason: Nausea And Vomiting Last Admin: 11/11/21 09:51 Dose: 4 mg Sodium Chloride (Sodium Chloride 0.9% 10 Ml Flush Syringe) 10 ml IV BID [facility] Last Admin: 11/11/21 09:51 Dose: 10 ml Sodium Chloride (Sodium Chloride 0.9% 10 Ml Flush Syringe) 10 ml IV PRN PRN PRN Reason: LINE FLUSH Review of Systems - Review of Systems ROS unobtainable: due to mental status Exam - Constitutional Vital Signs: Temp Pulse Resp BP Pulse Ox 98.7 F 118 H 18 151/79 93 11/10/21 19:07 11/11/21 07:25 11/11/21 07:25 11/11/21 07:25 11/11/21 07:25 General appearance: no acute distress - Gastrointestinal General gastrointestinal: Present: tender, distended - Neurologic Neurological: disoriented - Labs CBC & Chem 7: 11/11/21 03:43 11/11/21 03:43 Lab Results: Laboratory Results - last 24 hr 11/10/21 11/10/21 11/10/21 19:26 19:26 21:10 WBC 8.2 RBC 3.06 L Hgb 9.9 L Hct 28.2 L MCV 92 MCH 32 MCHC 35 H RDW 16.0 H Plt Count 187 Add Manual Diff Complete Total Counted 100 Seg Neuts % (Manual) 94.0 H Band Neutrophils % 1.0 Lymphocytes % (Manual) 2.0 L Reactive Lymphs % (Man) 0 Monocytes % (Manual) 3.0 Eosinophils % (Manual) 0 Basophils % (Manual) 0 Metamyelocytes % 0 Myelocytes % 0 Promyelocytes % 0 Blast Cells % 0 Nucleated RBC % Not Reportable Seg Neutrophils # Man 7.7 Band Neutrophils # 0.1 Lymphocytes # (Manual) 0.2 L Abs React Lymphs (Man) 0.0 Monocytes # (Manual) 0.2 Eosinophils # (Manual) 0.0 Basophils # (Manual) 0.0 Metamyelocytes # 0.0 Myelocytes # 0.0 Promyelocytes # 0.0 Blast Cells # 0.0 WBC Morphology Not Reportable Hypersegmented Neuts Not Reportable Hyposegmented Neuts Not Reportable Hypogranular Neuts Not Reportable Smudge Cells Not Reportable Toxic Granulation Not Reportable Toxic Vacuolation Not Reportable Dohle Bodies Not Reportable Pelger-Huet Anomaly Not Reportable Brenda Rods Not Reportable Platelet Estimate Consistent w auto Clumped Platelets Not Reportable Plt Clumps, EDTA Not Reportable Large Platelets Not Reportable Giant Platelets Not Reportable Platelet Satelliting Not Reportable Plt Morphology Comment Not Reportable RBC Morphology Not Reportable Dimorphic RBCs Not Reportable Polychromasia Not Reportable Hypochromasia 2+ Poikilocytosis Not Reportable Anisocytosis Not Reportable Microcytosis Not Reportable Macrocytosis Not Reportable Spherocytes Rare Pappenheimer Bodies Not Reportable Sickle Cells Not Reportable Target Cells 1+ Tear Drop Cells Not Reportable Ovalocytes Few Helmet Cells Not Reportable [place] Bodies Not Reportable [place] Rings Not Reportable [place] Cells Not Reportable Bite Cells Not Reportable Crenated Cell Not Reportable Elliptocytes Not Reportable Acanthocytes (Spur) Few Rouleaux Not Reportable Hemoglobin C Crystals Not Reportable Schistocytes Rare Malaria parasites Not Reportable Son Bodies Not Reportable Hem Pathologist Commnt No PT INR APTT Sodium 138 Potassium 2.9 L* Chloride 92.5 L Carbon Dioxide 30 Anion Gap 18 BUN 30 H Creatinine 1.5 H Estimated GFR 41 BUN/Creatinine Ratio 20 Glucose 134 H Lactic Acid 1.90 Calcium 8.9 Magnesium Total Bilirubin 2.60 H Direct Bilirubin Indirect Bilirubin AST 135 H ALT 84 H Alkaline Phosphatase 311 H Ammonia Troponin T Total Protein 5.3 L Albumin 3.2 L Albumin/Globulin Ratio 1.5 Lipase 2550 H Plasma/Serum Alcohol 11/10/21 11/10/21 11/10/21 21:10 21:10 21:10 WBC RBC Hgb Hct MCV MCH MCHC RDW Plt Count Add Manual Diff Total Counted Seg Neuts % (Manual) Band Neutrophils % Lymphocytes % (Manual) Reactive Lymphs % (Man) Monocytes % (Manual) Eosinophils % (Manual) Basophils % (Manual) Metamyelocytes % Myelocytes % Promyelocytes % Blast Cells % Nucleated RBC % Seg Neutrophils # Man Band Neutrophils # Lymphocytes # (Manual) Abs React Lymphs (Man) Monocytes # (Manual) Eosinophils # (Manual) Basophils # (Manual) Metamyelocytes # Myelocytes # Promyelocytes # Blast Cells # WBC Morphology Hypersegmented Neuts Hyposegmented Neuts Hypogranular Neuts Smudge Cells Toxic Granulation Toxic Vacuolation Dohle Bodies Pelger-Huet Anomaly Brenda Rods Platelet Estimate Clumped Platelets Plt Clumps, EDTA Large Platelets Giant Platelets Platelet Satelliting Plt Morphology Comment RBC Morphology Dimorphic RBCs Polychromasia Hypochromasia Poikilocytosis Anisocytosis Microcytosis Macrocytosis Spherocytes Pappenheimer Bodies Sickle Cells Target Cells Tear Drop Cells Ovalocytes Helmet Cells [place] Bodies [place] Rings Aubrie Cells Bite Cells Crenated Cell Elliptocytes Acanthocytes (Spur) Rouleaux Hemoglobin C Crystals Schistocytes Malaria parasites Son Bodies Hem Pathologist Commnt PT 19.7 H INR 1.44 H APTT 34.2 Sodium Potassium Chloride Carbon Dioxide Anion Gap BUN Creatinine Estimated GFR BUN/Creatinine Ratio Glucose Lactic Acid Calcium Magnesium 2.00 Total Bilirubin Direct Bilirubin Indirect Bilirubin AST ALT Alkaline Phosphatase Ammonia 18.0 L Troponin T 0.018 Total Protein Albumin Albumin/Globulin Ratio Lipase Plasma/Serum Alcohol 11/10/21 11/11/21 11/11/21 21:10 03:43 03:43 WBC 8.8 RBC 3.14 L Hgb 9.9 L Hct 29.2 L MCV 93 MCH 32 MCHC 34 RDW 16.0 H Plt Count 193 Add Manual Diff Complete Total Counted 100 Seg Neuts % (Manual) 93.0 H Band Neutrophils % 1.0 Lymphocytes % (Manual) 1.0 L Reactive Lymphs % (Man) 0 Monocytes % (Manual) 5.0 Eosinophils % (Manual) 0 Basophils % (Manual) 0 Metamyelocytes % 0 Myelocytes % 0 Promyelocytes % 0 Blast Cells % 0 Nucleated RBC % 2.0 H Seg Neutrophils # Man 8.2 H Band Neutrophils # 0.1 Lymphocytes # (Manual) 0.1 L Abs React Lymphs (Man) 0.0 Monocytes # (Manual) 0.4 Eosinophils # (Manual) 0.0 Basophils # (Manual) 0.0 Metamyelocytes # 0.0 Myelocytes # 0.0 Promyelocytes # 0.0 Blast Cells # 0.0 WBC Morphology Not Reportable Hypersegmented Neuts Not Reportable Hyposegmented Neuts Not Reportable Hypogranular Neuts Not Reportable Smudge Cells Not Reportable Toxic Granulation Not Reportable Toxic Vacuolation Not Reportable Dohle Bodies Not Reportable Pelger-Huet Anomaly Not Reportable Brenda Rods Not Reportable Platelet Estimate Consistent w auto Clumped Platelets Not Reportable Plt Clumps, EDTA Not Reportable Large Platelets Not Reportable Giant Platelets Not Reportable Platelet Satelliting Not Reportable Plt Morphology Comment Not Reportable RBC Morphology Not Reportable Dimorphic RBCs Not Reportable Polychromasia Not Reportable Hypochromasia 2+ Poikilocytosis Not Reportable Anisocytosis Not Reportable Microcytosis 1+ Macrocytosis Not Reportable Spherocytes Not Reportable Pappenheimer Bodies Not Reportable Sickle Cells Not Reportable Target Cells 1+ Tear Drop Cells Not Reportable Ovalocytes Few Helmet Cells Not Reportable [place] Bodies Not Reportable [place] Rings Not Reportable [place] Cells Not Reportable Bite Cells Not Reportable Crenated Cell Not Reportable Elliptocytes Not Reportable Acanthocytes (Spur) Few Rouleaux Not Reportable Hemoglobin C Crystals Not Reportable Schistocytes Rare Malaria parasites Not Reportable Son Bodies Not Reportable Hem Pathologist Commnt No PT INR APTT Sodium 140 Potassium 3.5 L D Chloride 95.0 L Carbon Dioxide 31 H Anion Gap 18 BUN 32 H Creatinine 1.3 H Estimated GFR 48 BUN/Creatinine Ratio 25 Glucose 126 H Lactic Acid Calcium 8.8 Magnesium Total Bilirubin Direct Bilirubin Indirect Bilirubin AST ALT Alkaline Phosphatase Ammonia Troponin T Total Protein Albumin Albumin/Globulin Ratio Lipase Plasma/Serum Alcohol < 0.01 11/11/21 08:04 WBC RBC Hgb Hct MCV MCH MCHC RDW Plt Count Add Manual Diff Total Counted Seg Neuts % (Manual) Band Neutrophils % Lymphocytes % (Manual) Reactive Lymphs % (Man) Monocytes % (Manual) Eosinophils % (Manual) Basophils % (Manual) Metamyelocytes % Myelocytes % Promyelocytes % Blast Cells % Nucleated RBC % Seg Neutrophils # Man Band Neutrophils # Lymphocytes # (Manual) Abs React Lymphs (Man) Monocytes # (Manual) Eosinophils # (Manual) Basophils # (Manual) Metamyelocytes # Myelocytes # Promyelocytes # Blast Cells # WBC Morphology Hypersegmented Neuts Hyposegmented Neuts Hypogranular Neuts Smudge Cells Toxic Granulation Toxic Vacuolation Dohle Bodies Pelger-Huet Anomaly Brenda Rods Platelet Estimate Clumped Platelets Plt Clumps, EDTA Large Platelets Giant Platelets Platelet Satelliting Plt Morphology Comment RBC Morphology Dimorphic RBCs Polychromasia Hypochromasia Poikilocytosis Anisocytosis Microcytosis Macrocytosis Spherocytes Pappenheimer Bodies Sickle Cells Target Cells Tear Drop Cells Ovalocytes Helmet Cells [place] Bodies [place] Rings [place] Cells Bite Cells Crenated Cell Elliptocytes Acanthocytes (Spur) Rouleaux Hemoglobin C Crystals Schistocytes Malaria parasites Son Bodies Hem Pathologist Commnt PT INR APTT Sodium Potassium Chloride Carbon Dioxide Anion Gap BUN Creatinine Estimated GFR BUN/Creatinine Ratio Glucose Lactic Acid Calcium Magnesium Total Bilirubin 2.70 H Direct Bilirubin 2.2 H Indirect Bilirubin 0.5 AST 110 H ALT 82 H Alkaline Phosphatase 312 H Ammonia Troponin T Total Protein 5.2 L Albumin 3.0 L Albumin/Globulin Ratio 1.4 Lipase Plasma/Serum Alcohol Assessment and Plan 1. Elevated LFTs - CT A/P w/o contrast did not reveal any acute abdominal process to explain abd pain - acute hepatitis panel ordered, results pending - lipase 2550 (?pancreatitis), will ordered MRCP w/ and w/o contrast to look for stones as well as RUQ US (pt is extremely tender to light touch and may not tolerate US) - continue to trend LFT's and lipase - NPO for now 2. Malnutrition/odynophagia - family is concerned about pts wt and lack of PO intake - consider nutrition consult and possible tube feeds - family denies previous EGD - pending clinical course, pt would likely benefit from EGD to look for stricture/other causes of pain - PPI IV
[2021-11-11 12:50] LABS: Hepatitis B Surface Antigen Non-Reactive (Negative); Hepatitis C Virus Antibody Non-Reactive (NonReactive)
[2021-11-11] MEDS: hydrALAZINE 20 MG/1 ML INJ IV SCH ×2 (15:15→18:58)
[2021-11-11] MEDS: FAMOTIDINE 20 MG/2 ML INJ IV SCH (15:15)
[2021-11-12] MEDS: INSULIN LISPRO 100 UNIT/ML SUB-Q SCH ×3 (00:31→18:30)
[2021-11-12] MEDS: SODIUM CHLORIDE 0.9% 1000 ML 1,000 ML IV SCH (03:01)
[2021-11-12] MEDS: METOPROLOL SUCCINATE XL 25 MG TAB PO SCH ×3 (03:04→21:52)
[2021-11-12 05:55] LABS: Hematocrit 28.8 % (30.3-42.9); Hemoglobin 9.7 gm/dl (10.1-14.3); Mean Corpuscular HGB Conc 34 % (30-34); Mean Corpuscular Volume 93 fl (79-97); Platelet Count 196 K/mm3 (140-440)
[2021-11-12 06:19] LABS: Albumin 2.8 g/dL (3.9-5); Calcium 8.6 mg/dL (8.4-10.2)
[2021-11-12 06:56] LABS: Band Neutrophils # (Manual) 0.2 K/mm3; Basophils % (Manual) 0 % (0.0-1.8); Eosinophils % (Manual) 0 % (0.0-4.3); Total Cells Counted 100
[2021-11-12 06:57] LABS: Hypochromasia 2+; Macrocytosis 1+; Schistocytes Few; Target Cells 1+
[2021-11-12 06:58] LABS: Platelet Estimate Consistent w Auto
[2021-11-12] MEDS: hydrALAZINE 20 MG/1 ML INJ IV SCH ×7 (07:25→22:55)
--- NOTE | 2021-11-12 08:44 | Hem/Onc Consultation ---
History of Present Illness - Reason for Consult Consult date: 11/12/21 Lung mass - History of Present Illness Heme/Onc Data Review This is a 76 year old female who presented to [facility] ED via EMS for altered mental status and abdominal pain and distention. Past medical history of breast cancer s/p mastectomy, hypertension, hyperlipidemia, and SIADH. Patient is alert and oriented to person and situation, but not to place or time. Patient is unable to tell when her symptoms started. Patient does endorse abdominal pain and constipation. Patient denies vomiting. Patient denies fever or chills. Patient appears weak and cachectic, but denies decreased appetite or decreased p.o. intake. Unknown if this has occurred, previously. Unknown if there are alleviating or aggravating factors, but patient reportedly does take opiates. CT scan of the head shows age-related parenchymal volume loss and microvascular ischemic change. No acute intracranial abnormality. CT abdomen and pelvis shows interval development of a large left lower lobe mass. GI following for suspected pancreatitis given abdominal pain and elevated lipase. Unclear etiology for pancreatitis at this time. Patient and family aware of the lung mass and had an appointment with pulmonary at [facility] to arrange bronch. MRI showed mild hepatic steatosis, unremarkable biliary system, no evidence of gallstones or biliary ductal dilation, normal pancreas. - concerning for pancreatitis given abdominal pain and elevated lipase although imaging did not show signs of pancreatitis. ASSESSMENT: Large left lower lobe mass Elevated liver enzymes and lipase, suspected pancreatitis PLAN: Needs lung mass tissue biopsy, planned for ThursdayNov 15 Outpatient follow up with established Oncologist Dr. Truong Witt Formal consult in AM. Case d/w Dr. Fabio Lua. Laboratory Last Values WBC 8.3 K/mm3 (4.5-11.0) 11/12/21 05:10 Hgb 9.7 gm/dl (10.1-14.3) L 11/12/21 05:10 Hct 28.8 % (30.3-42.9) L 11/12/21 05:10 MCV 93 fl (79-97) 11/12/21 05:10 Plt Count 196 K/mm3 (140-440) 11/12/21 05:10 Seg Neuts % (Manual) 94.0 % (40.0-70.0) H 11/12/21 05:10 Lymphocytes % (Manual) 1.0 % (13.4-35.0) L 11/12/21 05:10 Nucleated RBC % 1.0 % (0.0-0.9) H 11/12/21 05:10 Seg Neutrophils # Man 7.8 K/mm3 (1.8-7.7) H 11/12/21 05:10 Lymphocytes # (Manual) 0.1 K/mm3 (1.2-5.4) L 11/12/21 05:10 PT 19.7 Sec. (12.2-14.9) H 11/10/21 21:10 INR 1.44 (0.87-1.13) H 11/10/21 21:10 APTT 34.2 Sec. (24.2-36.6) 11/10/21 21:10 Creatinine 1.3 mg/dL (0.6-1.2) H 11/12/21 05:10 Total Bilirubin 3.80 mg/dL (0.1-1.2) H 11/12/21 05:10 Direct Bilirubin 2.2 mg/dL (0-0.2) H 11/11/21 08:04 Indirect Bilirubin 0.5 mg/dL 11/11/21 08:04 AST 99 units/L (5-40) H 11/12/21 05:10 ALT 70 units/L (7-56) H 11/12/21 05:10 Alkaline Phosphatase 297 units/L (35-129) H 11/12/21 05:10 Albumin 2.8 g/dL (3.9-5) L 11/12/21 05:10 Albumin/Globulin Ratio 1.4 % 11/12/21 05:10 Lipase 2111 units/L (13-60) H 11/12/21 05:10 Plasma/Serum Alcohol < 0.01 % (0-0.07) 11/10/21 21:10 Hepatitis A IgM Ab Non-reactive (NonReactive) 11/11/21 08:04 Hep Bs Antigen Non-reactive (Negative) 11/11/21 08:04 Hep B Core IgM Ab Non-reactive (NonReactive) 11/11/21 08:04 Hepatitis C Antibody Non-reactive (NonReactive) 11/11/21 08:04 Past History Past Medical History: arthritis (Hyponatremia), diabetes, hypertension, other (Breast cancer) Past Surgical History: Other ( Yes (BX)) Social history: no significant social history Family history: hypertension Medications and Allergies Allergies Allergy/AdvReac Type Severity Reaction Status Date / Time aspirin Allergy Hives/upset Verified 09/12/21 15:06 stomach Home Medications Medication Instructions Recorded Confirmed Last Taken Type Pravastatin [Pravachol] 40 mg PO QHS 04/14/17 09/12/21 09/10/21 History metFORMIN [Glucophage] 500 mg PO BID 04/14/17 09/12/21 09/10/21 History Anastrozole [Arimidex] 1 mg PO DAILY 09/12/21 09/12/21 09/10/21 History Diltiazem HCl [Cardizem LA] 120 mg PO QDAY 09/12/21 09/12/21 09/10/21 History Metoprolol Xl [Toprol Xl] 25 mg PO BID 09/12/21 09/12/21 09/10/21 History hydrALAZINE [Apresoline TAB] 25 mg PO BID 09/12/21 09/12/21 09/10/21 History hydroCHLOROthiazide [HCTZ] 25 mg PO QDAY 09/12/21 09/12/21 09/10/21 History Losartan [Cozaar] 50 mg PO QDAY tablet 09/16/21 Unknown Rx Tolvaptan [Samsca] 15 mg PO Q24H #30 tablet 09/16/21 Unknown Rx dilTIAZem CD [Cardizem CD] 120 mg PO DAILY capsule 09/16/21 Unknown Rx Active Meds: Active Medications Acetaminophen (Acetaminophen 325 Mg Tab) 650 mg PO Q4H PRN PRN Reason: Pain MILD(1-3)/Fever >100.5/HERRERA Dextrose (Dextrose 50% In Water (25gm) 50 Ml Syringe) 50 ml IV Q30MIN PRN; Protocol PRN Reason: Hypoglycemia Diltiazem HCl (Diltiazem Cd 120 Mg Cap) 120 mg PO DAILY [facility] Last Admin: 11/11/21 10:37 Dose: Not Given Famotidine (Famotidine 20 Mg/2 Ml Inj) 20 mg IV DAILY [facility] Last Admin: 11/11/21 15:15 Dose: 20 mg Hydralazine HCl (Hydralazine 20 Mg/1 Ml Inj) 20 mg IV Q4HR [facility] Last Admin: 11/12/21 07:33 Dose: 20 mg Hydrochlorothiazide (Hydrochlorothiazide 25 Mg Tab) 25 mg PO QDAY [facility] Last Admin: 11/11/21 10:38 Dose: Not Given Sodium Chloride (Nacl 0.9% 1000 Ml) 1,000 mls @ 100 mls/hr IV DIRECT [facility] Last Admin: 11/12/21 03:01 Dose: 100 mls/hr Insulin Human Lispro (Insulin Lispro 100 Unit/Ml) 0 unit SUB-Q Q6HR [facility]; Protocol Last Admin: 11/12/21 00:31 Dose: Not Given Losartan Potassium (Losartan 50 Mg Tab) 50 mg PO QDAY [facility] Last Admin: 11/11/21 10:38 Dose: Not Given Metoprolol Succinate (Metoprolol Succinate Xl 25 Mg Tab) 25 mg PO BID [facility] Last Admin: 11/12/21 03:04 Dose: 25 mg Miscellaneous Medication (Anastrozole [Arimidex]) 1 mg PO DAILY [facility] Morphine Sulfate (Morphine 2 Mg/1 Ml Inj) 2 mg IV Q4H PRN PRN Reason: Pain, Moderate (4-6) Morphine Sulfate (Morphine 4 Mg/1 Ml Inj) 4 mg IV Q4H PRN PRN Reason: Pain , Severe (7-10) Last Admin: 11/11/21 09:51 Dose: 4 mg Ondansetron HCl (Ondansetron 4 Mg/2 Ml Inj) 4 mg IV Q8H PRN PRN Reason: Nausea And Vomiting Last Admin: 11/11/21 09:51 Dose: 4 mg Sodium Chloride (Sodium Chloride 0.9% 10 Ml Flush Syringe) 10 ml IV BID [facility] Last Admin: 11/11/21 09:51 Dose: 10 ml Sodium Chloride (Sodium Chloride 0.9% 10 Ml Flush Syringe) 10 ml IV PRN PRN PRN Reason: LINE FLUSH Exam - Constitutional Vitals: Last Vital Signs Temp 97.3 F L 11/12/21 04:57 Pulse 105 H 11/12/21 04:57 Resp 16 11/12/21 04:57 BP 137/73 11/12/21 04:57 Pulse Ox 94 11/12/21 04:57 Results - Labs lab Results: Laboratory Results - last 24 hr 11/11/21 11/11/21 11/12/21 08:04 08:04 05:10 WBC 8.3 RBC 3.10 L Hgb 9.7 L Hct 28.8 L MCV 93 MCH 31 MCHC 34 RDW 16.0 H Plt Count 196 Lymph % (Auto) Not Reportable [place] % (Auto) Not Reportable Eos % (Auto) Not Reportable Baso % (Auto) Not Reportable Lymph # (Auto) Not Reportable [place] # (Auto) Not Reportable Eos # (Auto) Not Reportable Baso # (Auto) Not Reportable Add Manual Diff Complete Total Counted 100 Seg Neuts % (Manual) 94.0 H Band Neutrophils % 3.0 Lymphocytes % (Manual) 1.0 L Reactive Lymphs % (Man) 0 Monocytes % (Manual) 2.0 Eosinophils % (Manual) 0 Basophils % (Manual) 0 Metamyelocytes % 0 Myelocytes % 0 Promyelocytes % 0 Blast Cells % 0 Nucleated RBC % 1.0 H Seg Neutrophils # Not Reportable Seg Neutrophils # Man 7.8 H Band Neutrophils # 0.2 Lymphocytes # (Manual) 0.1 L Abs React Lymphs (Man) 0.0 Monocytes # (Manual) 0.2 Eosinophils # (Manual) 0.0 Basophils # (Manual) 0.0 Metamyelocytes # 0.0 Myelocytes # 0.0 Promyelocytes # 0.0 Blast Cells # 0.0 WBC Morphology Not Reportable Hypersegmented Neuts Not Reportable Hyposegmented Neuts Not Reportable Hypogranular Neuts Not Reportable Smudge Cells Not Reportable Toxic Granulation Not Reportable Toxic Vacuolation Not Reportable Dohle Bodies Not Reportable Pelger-Huet Anomaly Not Reportable Brenda Rods Not Reportable Platelet Estimate Consistent w auto Clumped Platelets Not Reportable Plt Clumps, EDTA Not Reportable Large Platelets Not Reportable Giant Platelets Not Reportable Platelet Satelliting Not Reportable Plt Morphology Comment Not Reportable RBC Morphology Not Reportable Dimorphic RBCs Not Reportable Polychromasia Not Reportable Hypochromasia 2+ Poikilocytosis Not Reportable Anisocytosis Not Reportable Microcytosis Not Reportable Macrocytosis 1+ Spherocytes Not Reportable Pappenheimer Bodies Not Reportable Sickle Cells Not Reportable Target Cells 1+ Tear Drop Cells Not Reportable Ovalocytes Not Reportable Helmet Cells Not Reportable Fierro-[place] Bodies Not Reportable [place] Rings Not Reportable [place] Cells Not Reportable Bite Cells Not Reportable Crenated Cell Not Reportable Elliptocytes Not Reportable Acanthocytes (Spur) Not Reportable Rouleaux Not Reportable Hemoglobin C Crystals Not Reportable Schistocytes Few Malaria parasites Not Reportable Son Bodies Not Reportable Hem Pathologist Commnt No Sodium Potassium Chloride Carbon Dioxide Anion Gap BUN Creatinine Estimated GFR BUN/Creatinine Ratio Glucose Calcium Magnesium Total Bilirubin 2.70 H Direct Bilirubin 2.2 H Indirect Bilirubin 0.5 AST 110 H ALT 82 H Alkaline Phosphatase 312 H Total Protein 5.2 L Albumin 3.0 L Albumin/Globulin Ratio 1.4 Lipase Hepatitis A IgM Ab Non-reactive Hep Bs Antigen Non-reactive Hep B Core IgM Ab Non-reactive Hepatitis C Antibody Non-reactive 11/12/21 05:10 WBC RBC Hgb Hct MCV MCH MCHC RDW Plt Count Lymph % (Auto) [place] % (Auto) Eos % (Auto) Baso % (Auto) Lymph # (Auto) [place] # (Auto) Eos # (Auto) Baso # (Auto) Add Manual Diff Total Counted Seg Neuts % (Manual) Band Neutrophils % Lymphocytes % (Manual) Reactive Lymphs % (Man) Monocytes % (Manual) Eosinophils % (Manual) Basophils % (Manual) Metamyelocytes % Myelocytes % Promyelocytes % Blast Cells % Nucleated RBC % Seg Neutrophils # Seg Neutrophils # Man Band Neutrophils # Lymphocytes # (Manual) Abs React Lymphs (Man) Monocytes # (Manual) Eosinophils # (Manual) Basophils # (Manual) Metamyelocytes # Myelocytes # Promyelocytes # Blast Cells # WBC Morphology Hypersegmented Neuts Hyposegmented Neuts Hypogranular Neuts Smudge Cells Toxic Granulation Toxic Vacuolation Dohle Bodies Pelger-Huet Anomaly Brenda Rods Platelet Estimate Clumped Platelets Plt Clumps, EDTA Large Platelets Giant Platelets Platelet Satelliting Plt Morphology Comment RBC Morphology Dimorphic RBCs Polychromasia Hypochromasia Poikilocytosis Anisocytosis Microcytosis Macrocytosis Spherocytes Pappenheimer Bodies Sickle Cells Target Cells Tear Drop Cells Ovalocytes Helmet Cells Fier[place] Bodies [place] Rings [place] Cells Bite Cells Crenated Cell Elliptocytes Acanthocytes (Spur) Rouleaux Hemoglobin C Crystals Schistocytes Malaria parasites Son Bodies Hem Pathologist Commnt Sodium 141 Potassium 3.2 L Chloride 99.1 Carbon Dioxide 29 Anion Gap 16 BUN 37 H Creatinine 1.3 H Estimated GFR 48 BUN/Creatinine Ratio 28 Glucose 213 H Calcium 8.6 Magnesium 1.90 Total Bilirubin 3.80 H Direct Bilirubin Indirect Bilirubin AST 99 H ALT 70 H Alkaline Phosphatase 297 H Total Protein 4.8 L Albumin 2.8 L Albumin/Globulin Ratio 1.4 Lipase 2111 H Hepatitis A IgM Ab Hep Bs Antigen Hep B Core IgM Ab Hepatitis C Antibody
[2021-11-12] MEDS: MORPHINE 2 MG/1 ML INJ IV PRN ×2 (09:06→20:15)
[2021-11-12] MEDS: hydroCHLOROthiazide 25 MG TAB PO SCH (10:00)
[2021-11-12] MEDS: FAMOTIDINE 20 MG/2 ML INJ IV SCH (10:00)
[2021-11-12] MEDS: LOSARTAN 50 MG TAB PO SCH (10:00)
[2021-11-12] MEDS: dilTIAZem CD 120 MG CAP PO SCH (10:23)
--- NOTE | 2021-11-12 10:35 | Magnetic Resonance Report ---
MRI ABDOMEN WITHOUT AND WITH CONTRAST INDICATION / CLINICAL INFORMATION: look for gallstones pATIENT UNABLE TO FOLLOW BREATHING INSTRUCTION, BEST POSSIBLE STUDY. Thin slab co miryam and radial MRCP images. 14 cc of Clariscan was administered for postcontrast dynamic imaging. TECHNIQUE: Multiplanar, multisequence series were obtained through the abdomen. COMPARISON: CT abdomen pelvis without contrast 11/10/2021 Comment: Many of the sequences are limited and resolution due to patient breathing motion. The patien t was uncooperative. FINDINGS: LIVER: Mild hepatic steatosis is evident. No evidence for liver mass. GALLBLADDER: No significant abnormality. No evidence for gallstones. No wall thickening or pericholec ystic fluid. BILE DUCTS: No significant abnormality. MRCP images are slightly limited but no evidence for biliary dilatation or choledocholithiasis. The CBD measures 4 mm. PANCREAS: No significant abnormality. SPLEEN: No significant abnormality. ADRENALS: No significant abnormality. RIGHT KIDNEY AND URETER: No significant abnormality. LEFT KIDNEY AND URETER: There are multiple cysts measuring up to 2.5 cm throughout the left kidney. S ome of the cysts demonstrates mild internal hemorrhagic change. The left kidney appears mildly atroph ic. No solid enhancing mass or hydronephrosis. STOMACH AND VISUALIZED BOWEL: No significant abnormality. PERITONEUM: There is small perihepatic and perisplenic ascites. No free air. No fluid collection. LYMPH NODES: No significant adenopathy. AORTA and ARTERIES: No significant abnormality. IVC and VEINS: No significant abnormality. ADDITIONAL FINDINGS: Trace right pleural effusion. Left infrahilar mass is unchanged measuring 5.6 x 4.4 cm in axial plane. SKELETAL SYSTEM: No significant abnormality. IMPRESSION: Limited exam by patient breathing motion artifact. Mild hepatic steatosis. Unremarkable biliary system. No evidence for gallstones or biliary dilatation. Small ascites. Atrophic left kidney with multiple simple and complex cysts. Signer Name: Daniel Blakely Jr, MD Signed: 11/12/2021 10:31 AM Workstation Name: [id number]
--- NOTE | 2021-11-12 10:54 | Progress Note ---
Assessment and Plan Assessment and plan: This is a 76 year old female who presented to [facility] ED via EMS for altered mental status and abdominal pain and distention. Family states that they called EMS as pt was not acting herself. Past medical history of breast cancer s/p mastectomy, hypertension, hyperlipidemia, and SIADH. CT scan of the head shows age-related parenchymal volume loss and microvascular ischemic change. No acute intracranial abnormality. CT abdomen and pelvis shows interval development of a large left lower lobe mass. GI consult for suspected pancreatitis given abdominal pain and elevated lipase. Initial work-up in the ED shows elevated LFTs, normal sodium, elevated lipase in 1999. The patient was admitted with diagnosis below: -- Acute toxic metabolic encephalopathy/POA/ Metabolic encephalopathy most likely secondary to mass in the left lower lobe, pancreatitis and hypokalemia. Treat the underlying cause, neurochecks and supportive care CT head without contrast findings reviewed --Hypokalemia Potassium is supplemented. Closely monitor electrolytes --History of breast cancer status post surgery; -Mass lower lobe of left lung/possible metastatic lung cancer Patient has past medical history of breast cancer status postsurgery. [facility] consulted telemetry hematology oncologist Will also consult pulmonary for possible lung biopsy CT-guided versus bronchoscopic --Acute pancreatitis; Clear liquids IV fluids. IV Pepcid Pain medications. On clear liquid diet GI consulted , evaluation noted and appreciated --Acute transaminitis; GI following, otitis panel negative Closely monitor transaminases Abdominal ultrasound if needed GI recommended MRI abdomen which is pending -Hyponatremia; Normal saline, closely monitor electrolytes, supportive care -- Hypertension; moderate control Continue current antihypertensives As needed medications --T2DM (type 2 diabetes mellitus) Accu-Cheks sliding scale coverage, ADA diet Insulin as needed --Full CODE STATUS Hospital course: 11/12/2021. MRI / MRCP pending to evaluate for biliary ductal obstruction as well as any signs of metastatic disease in the liver from recently diagnosed lung mass. Continue supportive care and n.p.o. status. We will consult pulmonary for further evaluation for possible bronchoscopy. Follow-up serial lipase History Interval history: No new issues overnight Hospitalist Physical - Constitutional Vitals: Temp Pulse Resp BP Pulse Ox 98.6 F 111 H 26 H 102/53 90 11/12/21 08:24 11/12/21 08:24 11/12/21 09:06 11/12/21 08:24 11/12/21 08:24 General appearance: Present: well-nourished, cachectic, other (Chronically ill looking) - EENT Eyes: Present: PERRL, EOM intact ENT: hearing intact, clear oral mucosa, dentition normal - Neck Neck: Present: supple, normal ROM - Respiratory Respiratory effort: normal Respiratory: bilateral: CTA - Cardiovascular Rhythm: regular Heart Sounds: Present: S1 & S2. Absent: gallop, rub - Extremities Extremities: no ischemia, No edema, Full ROM - Abdominal General gastrointestinal: soft, non-tender, non-distended, normal bowel sounds - Integumentary Integumentary: Present: clear, warm, dry - Neurologic Neurologic: CNII-XII intact, moves all extremities HEART Score - HEART Score Troponin: Troponin T 0.018 ng/mL (0.00-0.029) 11/10/21 21:10 Results - Labs CBC & Chem 7: 11/12/21 05:10 11/12/21 05:10 Labs: Laboratory Last Values WBC 8.3 K/mm3 (4.5-11.0) 11/12/21 05:10 RBC 3.10 M/mm3 (3.65-5.03) L 11/12/21 05:10 Hgb 9.7 gm/dl (10.1-14.3) L 11/12/21 05:10 Hct 28.8 % (30.3-42.9) L 11/12/21 05:10 MCV 93 fl (79-97) 11/12/21 05:10 MCH 31 pg (28-32) 11/12/21 05:10 MCHC 34 % (30-34) 11/12/21 05:10 RDW 16.0 % (13.2-15.2) H 11/12/21 05:10 Plt Count 196 K/mm3 (140-440) 11/12/21 05:10 Lymph % (Auto) Not Reportable 11/12/21 05:10 [place] % (Auto) Not Reportable 11/12/21 05:10 Eos % (Auto) Not Reportable 11/12/21 05:10 Baso % (Auto) Not Reportable 11/12/21 05:10 Lymph # (Auto) Not Reportable 11/12/21 05:10 [place] # (Auto) Not Reportable 11/12/21 05:10 Eos # (Auto) Not Reportable 11/12/21 05:10 Baso # (Auto) Not Reportable 11/12/21 05:10 Add Manual Diff Complete 11/12/21 05:10 Total Counted 100 11/12/21 05:10 Seg Neuts % (Manual) 94.0 % (40.0-70.0) H 11/12/21 05:10 Band Neutrophils % 3.0 % 11/12/21 05:10 Lymphocytes % (Manual) 1.0 % (13.4-35.0) L 11/12/21 05:10 Reactive Lymphs % (Man) 0 % 11/12/21 05:10 Monocytes % (Manual) 2.0 % (0.0-7.3) 11/12/21 05:10 Eosinophils % (Manual) 0 % (0.0-4.3) 11/12/21 05:10 Basophils % (Manual) 0 % (0.0-1.8) 11/12/21 05:10 Metamyelocytes % 0 % 11/12/21 05:10 Myelocytes % 0 % 11/12/21 05:10 Promyelocytes % 0 % 11/12/21 05:10 Blast Cells % 0 % 11/12/21 05:10 Nucleated RBC % 1.0 % (0.0-0.9) H 11/12/21 05:10 Seg Neutrophils # Not Reportable 11/12/21 05:10 Seg Neutrophils # Man 7.8 K/mm3 (1.8-7.7) H 11/12/21 05:10 Band Neutrophils # 0.2 K/mm3 11/12/21 05:10 Lymphocytes # (Manual) 0.1 K/mm3 (1.2-5.4) L 11/12/21 05:10 Abs React Lymphs (Man) 0.0 K/mm3 11/12/21 05:10 Monocytes # (Manual) 0.2 K/mm3 (0.0-0.8) 11/12/21 05:10 Eosinophils # (Manual) 0.0 K/mm3 (0.0-0.4) 11/12/21 05:10 Basophils # (Manual) 0.0 K/mm3 (0.0-0.1) 11/12/21 05:10 Metamyelocytes # 0.0 K/mm3 11/12/21 05:10 Myelocytes # 0.0 K/mm3 11/12/21 05:10 Promyelocytes # 0.0 K/mm3 11/12/21 05:10 Blast Cells # 0.0 K/mm3 11/12/21 05:10 WBC Morphology Not Reportable 11/12/21 05:10 Hypersegmented Neuts Not Reportable 11/12/21 05:10 Hyposegmented Neuts Not Reportable 11/12/21 05:10 Hypogranular Neuts Not Reportable 11/12/21 05:10 Smudge Cells Not Reportable 11/12/21 05:10 Toxic Granulation Not Reportable 11/12/21 05:10 Toxic Vacuolation Not Reportable 11/12/21 05:10 Dohle Bodies Not Reportable 11/12/21 05:10 Pelger-Huet Anomaly Not Reportable 11/12/21 05:10 Brenda Rods Not Reportable 11/12/21 05:10 Platelet Estimate Consistent w auto 11/12/21 05:10 Clumped Platelets Not Reportable 11/12/21 05:10 Plt Clumps, EDTA Not Reportable 11/12/21 05:10 Large Platelets Not Reportable 11/12/21 05:10 Giant Platelets Not Reportable 11/12/21 05:10 Platelet Satelliting Not Reportable 11/12/21 05:10 Plt Morphology Comment Not Reportable 11/12/21 05:10 RBC Morphology Not Reportable 11/12/21 05:10 Dimorphic RBCs Not Reportable 11/12/21 05:10 Polychromasia Not Reportable 11/12/21 05:10 Hypochromasia 2+ 11/12/21 05:10 Poikilocytosis Not Reportable 11/12/21 05:10 Anisocytosis Not Reportable 11/12/21 05:10 Microcytosis Not Reportable 11/12/21 05:10 Macrocytosis 1+ 11/12/21 05:10 Spherocytes Not Reportable 11/12/21 05:10 Pappenheimer Bodies Not Reportable 11/12/21 05:10 Sickle Cells Not Reportable 11/12/21 05:10 Target Cells 1+ 11/12/21 05:10 Tear Drop Cells Not Reportable 11/12/21 05:10 Ovalocytes Not Reportable 11/12/21 05:10 Helmet Cells Not Reportable 11/12/21 05:10 Fierro-[place] Bodies Not Reportable 11/12/21 05:10 [place]ram Rings Not Reportable 11/12/21 05:10 [place] Cells Not Reportable 11/12/21 05:10 Bite Cells Not Reportable 11/12/21 05:10 Crenated Cell Not Reportable 11/12/21 05:10 Elliptocytes Not Reportable 11/12/21 05:10 Acanthocytes (Spur) Not Reportable 11/12/21 05:10 Rouleaux Not Reportable 11/12/21 05:10 Hemoglobin C Crystals Not Reportable 11/12/21 05:10 Schistocytes Few 11/12/21 05:10 Malaria parasites Not Reportable 11/12/21 05:10 Son Bodies Not Reportable 11/12/21 05:10 Hem Pathologist Commnt No 11/12/21 05:10 PT 19.7 Sec. (12.2-14.9) H 11/10/21 21:10 INR 1.44 (0.87-1.13) H 11/10/21 21:10 APTT 34.2 Sec. (24.2-36.6) 11/10/21 21:10 Sodium 141 mmol/L (137-145) 11/12/21 05:10 Potassium 3.2 mmol/L (3.6-5.0) L 11/12/21 05:10 Chloride 99.1 mmol/L (98-107) 11/12/21 05:10 Carbon Dioxide 29 mmol/L (22-30) 11/12/21 05:10 Anion Gap 16 mmol/L 11/12/21 05:10 BUN 37 mg/dL (7-17) H 11/12/21 05:10 Creatinine 1.3 mg/dL (0.6-1.2) H 11/12/21 05:10 Estimated GFR 48 ml/min 11/12/21 05:10 BUN/Creatinine Ratio 28 % 11/12/21 05:10 Glucose 213 mg/dL (65-100) H 11/12/21 05:10 POC Glucose 203 mg/dL (70-105) H 11/12/21 06:11 Lactic Acid 1.90 mmol/L (0.7-2.0) 11/10/21 21:10 Calcium 8.6 mg/dL (8.4-10.2) 11/12/21 05:10 Magnesium 1.90 mg/dL (1.7-2.3) 11/12/21 05:10 Total Bilirubin 3.80 mg/dL (0.1-1.2) H 11/12/21 05:10 Direct Bilirubin 2.2 mg/dL (0-0.2) H 11/11/21 08:04 Indirect Bilirubin 0.5 mg/dL 11/11/21 08:04 AST 99 units/L (5-40) H 11/12/21 05:10 ALT 70 units/L (7-56) H 11/12/21 05:10 Alkaline Phosphatase 297 units/L (35-129) H 11/12/21 05:10 Ammonia 18.0 umol/L (25-60) L 11/10/21 21:10 Troponin T 0.018 ng/mL (0.00-0.029) 11/10/21 21:10 Total Protein 4.8 g/dL (6.3-8.2) L 11/12/21 05:10 Albumin 2.8 g/dL (3.9-5) L 11/12/21 05:10 Albumin/Globulin Ratio 1.4 % 11/12/21 05:10 Lipase 2111 units/L (13-60) H 11/12/21 05:10 Plasma/Serum Alcohol < 0.01 % (0-0.07) 11/10/21 21:10 Hepatitis A IgM Ab Non-reactive (NonReactive) 11/11/21 08:04 Hep Bs Antigen Non-reactive (Negative) 11/11/21 08:04 Hep B Core IgM Ab Non-reactive (NonReactive) 11/11/21 08:04 Hepatitis C Antibody Non-reactive (NonReactive) 11/11/21 08:04 Pulido/IV: Voiding Method External Female Catheter Active Medications - Current Medications Current Medications: Generic Name Dose Route Start Last Admin Trade Name Freq PRN Reason Stop Dose Admin Acetaminophen 650 mg 11/10/21 22:52 Acetaminophen 325 Mg Tab PO Q4H PRN Pain MILD(1-3)/Fever >100.5/HERRERA Dextrose 50 ml 11/10/21 22:52 Dextrose 50% In Water (25gm) 50 Ml Syringe IV Q30MIN PRN Hypoglycemia Protocol Diltiazem HCl 120 mg 11/11/21 10:00 11/11/21 10:37 Diltiazem Cd 120 Mg Cap PO Not Given DAILY [facility] Famotidine 20 mg 11/11/21 10:00 11/11/21 15:15 Famotidine 20 Mg/2 Ml Inj IV 20 mg DAILY SIOBHAN Administration Hydralazine HCl 20 mg 11/11/21 14:00 11/12/21 07:33 Hydralazine 20 Mg/1 Ml Inj IV 20 mg Q4HR SIOBHAN Administration Hydrochlorothiazide 25 mg 11/11/21 10:00 11/11/21 10:38 Hydrochlorothiazide 25 Mg Tab PO Not Given QDAY [facility] Sodium Chloride 1,000 mls @ 100 mls/hr 11/10/21 23:00 11/12/21 03:01 Nacl 0.9% 1000 Ml IV 100 mls/hr DIRECT SIOBHAN Administration Insulin Human Lispro 0 unit 11/11/21 00:00 11/12/21 00:31 Insulin Lispro 100 Unit/Ml SUB-Q Not Given Q6HR [facility] Protocol Losartan Potassium 50 mg 11/11/21 10:00 11/11/21 10:38 Losartan 50 Mg Tab PO Not Given QDAY [facility] Metoprolol Succinate 25 mg 11/11/21 10:00 11/12/21 03:04 Metoprolol Succinate Xl 25 Mg Tab PO 25 mg BID [facility] Administration Miscellaneous Medication 1 mg 11/11/21 10:00 Anastrozole [Arimidex] PO DAILY [facility] Morphine Sulfate 2 mg 11/10/21 22:52 11/12/21 09:06 Morphine 2 Mg/1 Ml Inj IV 2 mg Q4H PRN Administration Pain, Moderate (4-6) Morphine Sulfate 4 mg 11/10/21 22:52 11/11/21 09:51 Morphine 4 Mg/1 Ml Inj IV 4 mg Q4H PRN Administration Pain , Severe (7-10) Ondansetron HCl 4 mg 11/10/21 22:52 11/11/21 09:51 Ondansetron 4 Mg/2 Ml Inj IV 4 mg Q8H PRN Administration Nausea And Vomiting Sodium Chloride 10 ml 11/11/21 10:00 11/11/21 09:51 Sodium Chloride 0.9% 10 Ml Flush Syringe IV 10 ml BID SIOBHAN Administration Sodium Chloride 10 ml 11/10/21 22:52 Sodium Chloride 0.9% 10 Ml Flush Syringe IV PRN PRN LINE FLUSH Nutrition/Malnutrition Assess - Dietary Evaluation Nutrition/Malnutrition Findings: Nutrition Notes Start: 11/11/21 14:39 Freq: Status: Active Protocol: Document 11/11/21 14:39 SELENE (Rec: 11/11/21 14:54 UTESTEFANI [id number]) Nutrition Notes Need for Assessment generated from: MD Order,Education Initial or Follow up Assessment Current Diagnosis Diabetes,Hypertension, Hyperlipidemia Other Pertinent Diagnosis AMS, LLL mass, Pancreatitis, Elevated LFTs Current Diet NPO Labs/Tests K 3.5 BUN 32 Cr 1.3 Lipase 2550 (11/10) Pertinent Medications NS at 100ml/hr Height 4 ft 3 in Weight 40.91 kg Usual Body Weight 59.09 kg [place] Body Weight (kg) 25.00 BMI 24.3 Intake Prior to Admission Poor Weight change and time frame Per pt's family report, pt with 40# unintentional wt loss x 3 months. Unable to obtain pt's current wt as bed scale not functioning properly Subjective/Other Information RD consulted for diet education. Pt not appropriate for diet education; she is very confused at time of visit (13:21). Pt's family members reports pt not eating and c/o pain upon swallowing; pt is edentulous. Physical exam revealed subcutaneous fat loss as well as muscle loss. PMHx includes breast CA. Per GI, pt to be checked for presence of gallstones; may also need an EGD to assess for presence of strictures. Burn Absent Trauma Absent GI Symptoms Constipation Difficulty In Chewing Current % PO Negligible Minimum of two criteria Yes Energy Intake (severe) < or equal to 50% Estimated Energy Requirement > or equal to 5 days Interpretation of Weight Loss (severe) >7.5% in 3 months Body Fat Depletion Moderate depletion (severe) Muscle Mass Moderate Depletion (severe) Protein-Calorie Malnutrition Severe #1 Nutrition Diagnosis Malnutrition Etiology advanced age, chronic illness As Evidenced by Signs and Symptoms unintentional wt loss, decreased PO intake, subcutaneous fat loss, muscle loss Is patient on ventilator? No Is Patient Ambulatory and/or Out of Bed No REE-([facility]-confined to bed) 808.272 Kcal/Kg value to use for calculation 30 Approximate Energy Requirements Using 1227 kcal/Kg Calculation Used for Recommendations Kcal/kg Additional Notes Pro needs 1.2-1.5g/k-61g/ day Fluid needs 1ml/kcal Nutrition Intervention Change Diet Order: Advance diet when medically feasible Nutrition Support: Consider EN support to meet nutrient needs and prevent further wt loss Goal #1 Either diet advancement or EN support to meet nutrient needs Goal #2 Wt maintenance and/or gain Anticipated Discharge Needs: Pt may need EN support to maintain adequate nutritional intake Follow-Up By: 11/13/21 Additional Comments F/U: Diet advancement, POC
--- NOTE | 2021-11-12 11:56 | Consultation ---
History of Present Illness Consult date: 11/12/21 Requesting physician: MILLICENT BUSTILLOS Reason for consult: lung mass, abnormal CXR/CT History of present illness: 76 y/o female admitted to the hospital with abdominal pain. On CT of abdomen pelvis, a left lower lobe mass found. Pulmonary consulted for this. Of note, patient is altered and cannot provide history. Son and Grandddaughter at bedside. They are already aware of the mass and had an appointment with pulvicente moncada at [facility] to arrange bronch. Patient was admitted to [facility] earlier this month and had [place] scan which showed left hilar mass with extension into the left lower lobe. Pulmonary was not consulted then and patient was discharged to have IR guided biopsy arranged. Follows with [facility] for oncology. Remainder is negative. She has had SIADH since at least August of this year. Past History Past Medical History: arthritis (Hyponatremia), diabetes, hypertension, other (Breast cancer) Past Surgical History: Other ( Yes (BX)) Social history: no significant social history Family history: hypertension Medications and Allergies Allergies Allergy/AdvReac Type Severity Reaction Status Date / Time aspirin Allergy Hives/upset Verified 09/12/21 15:06 stomach Home Medications Medication Instructions Recorded Confirmed Last Taken Type Pravastatin [Pravachol] 40 mg PO QHS 04/14/17 09/12/21 09/10/21 History metFORMIN [Glucophage] 500 mg PO BID 04/14/17 09/12/21 09/10/21 History Anastrozole [Arimidex] 1 mg PO DAILY 09/12/21 09/12/21 09/10/21 History Diltiazem HCl [Cardizem LA] 120 mg PO QDAY 09/12/21 09/12/21 09/10/21 History Metoprolol Xl [Toprol Xl] 25 mg PO BID 09/12/21 09/12/21 09/10/21 History hydrALAZINE [Apresoline TAB] 25 mg PO BID 09/12/21 09/12/21 09/10/21 History hydroCHLOROthiazide [HCTZ] 25 mg PO QDAY 09/12/21 09/12/21 09/10/21 History Losartan [Cozaar] 50 mg PO QDAY tablet 09/16/21 Unknown Rx Tolvaptan [Samsca] 15 mg PO Q24H #30 tablet 09/16/21 Unknown Rx dilTIAZem CD [Cardizem CD] 120 mg PO DAILY capsule 09/16/21 Unknown Rx Active Meds: Active Medications Acetaminophen (Acetaminophen 325 Mg Tab) 650 mg PO Q4H PRN PRN Reason: Pain MILD(1-3)/Fever >100.5/HERRERA Dextrose (Dextrose 50% In Water (25gm) 50 Ml Syringe) 50 ml IV Q30MIN PRN; Protocol PRN Reason: Hypoglycemia Diltiazem HCl (Diltiazem Cd 120 Mg Cap) 120 mg PO DAILY [facility] Last Admin: 11/11/21 10:37 Dose: Not Given Famotidine (Famotidine 20 Mg/2 Ml Inj) 20 mg IV DAILY [facility] Last Admin: 11/11/21 15:15 Dose: 20 mg Hydralazine HCl (Hydralazine 20 Mg/1 Ml Inj) 20 mg IV Q4HR [facility] Last Admin: 11/12/21 07:33 Dose: 20 mg Hydrochlorothiazide (Hydrochlorothiazide 25 Mg Tab) 25 mg PO QDAY [facility] Last Admin: 11/11/21 10:38 Dose: Not Given Sodium Chloride (Nacl 0.9% 1000 Ml) 1,000 mls @ 100 mls/hr IV DIRECT [facility] Last Admin: 11/12/21 03:01 Dose: 100 mls/hr Insulin Human Lispro (Insulin Lispro 100 Unit/Ml) 0 unit SUB-Q Q6HR [facility]; Protocol Last Admin: 11/12/21 00:31 Dose: Not Given Losartan Potassium (Losartan 50 Mg Tab) 50 mg PO QDAY [facility] Last Admin: 11/11/21 10:38 Dose: Not Given Metoprolol Succinate (Metoprolol Succinate Xl 25 Mg Tab) 25 mg PO BID [facility] Last Admin: 11/12/21 03:04 Dose: 25 mg Miscellaneous Medication (Anastrozole [Arimidex]) 1 mg PO DAILY [facility] Morphine Sulfate (Morphine 2 Mg/1 Ml Inj) 2 mg IV Q4H PRN PRN Reason: Pain, Moderate (4-6) Last Admin: 11/12/21 09:06 Dose: 2 mg Morphine Sulfate (Morphine 4 Mg/1 Ml Inj) 4 mg IV Q4H PRN PRN Reason: Pain , Severe (7-10) Last Admin: 11/11/21 09:51 Dose: 4 mg Ondansetron HCl (Ondansetron 4 Mg/2 Ml Inj) 4 mg IV Q8H PRN PRN Reason: Nausea And Vomiting Last Admin: 11/11/21 09:51 Dose: 4 mg Sodium Chloride (Sodium Chloride 0.9% 10 Ml Flush Syringe) 10 ml IV BID SIOBHAN Last Admin: 11/11/21 09:51 Dose: 10 ml Sodium Chloride (Sodium Chloride 0.9% 10 Ml Flush Syringe) 10 ml IV PRN PRN PRN Reason: LINE FLUSH Review of Systems ROS unobtainable: due to mental status Physical Examination Vital signs: Vital Signs Temp Pulse Resp BP Pulse Ox 98.7 F 99 H 18 150/78 96 11/10/21 19:07 11/10/21 19:07 11/10/21 19:07 11/10/21 19:07 11/10/21 19:07 General appearance: no acute distress, other (cachectic and confused.) Eyes: non-icteric ENT: oropharynx moist Neck: supple Effort: mildly labored Ascultation: Bilateral: clear Percussion: Bilateral: not dull Tactile fremitus: Bilateral: normal Cardiovascular: regular rate and rhythm unable to assess, other (very slowed mentation) Results - Laboratory Findings CBC and BMP: 11/12/21 05:10 11/12/21 05:10 PT/INR, D-dimer PT 19.7 Sec. (12.2-14.9) H 11/10/21 21:10 INR 1.44 (0.87-1.13) H 11/10/21 21:10 Abnormal lab findings: Abnormal Labs 11/10/21 11/10/21 11/10/21 19:26 19:26 21:10 RBC 3.06 L Hgb 9.9 L Hct 28.2 L MCHC 35 H RDW 16.0 H Seg Neuts % (Manual) 94.0 H Lymphocytes % (Manual) 2.0 L Nucleated RBC % Seg Neutrophils # Man Lymphocytes # (Manual) 0.2 L PT 19.7 H INR 1.44 H Potassium 2.9 L* Chloride 92.5 L Carbon Dioxide BUN 30 H Creatinine 1.5 H Glucose 134 H POC Glucose Total Bilirubin 2.60 H Direct Bilirubin AST 135 H ALT 84 H Alkaline Phosphatase 311 H Ammonia Total Protein 5.3 L Albumin 3.2 L Lipase 2550 H 11/10/21 11/11/21 11/11/21 21:10 03:43 03:43 RBC 3.14 L Hgb 9.9 L Hct 29.2 L MCHC RDW 16.0 H Seg Neuts % (Manual) 93.0 H Lymphocytes % (Manual) 1.0 L Nucleated RBC % 2.0 H Seg Neutrophils # Man 8.2 H Lymphocytes # (Manual) 0.1 L PT INR Potassium 3.5 L D Chloride 95.0 L Carbon Dioxide 31 H BUN 32 H Creatinine 1.3 H Glucose 126 H POC Glucose Total Bilirubin Direct Bilirubin AST ALT Alkaline Phosphatase Ammonia 18.0 L Total Protein Albumin Lipase 11/11/21 11/12/21 11/12/21 08:04 00:26 05:10 RBC 3.10 L Hgb 9.7 L Hct 28.8 L MCHC RDW 16.0 H Seg Neuts % (Manual) 94.0 H Lymphocytes % (Manual) 1.0 L Nucleated RBC % 1.0 H Seg Neutrophils # Man 7.8 H Lymphocytes # (Manual) 0.1 L PT INR Potassium Chloride Carbon Dioxide BUN Creatinine Glucose POC Glucose 160 H Total Bilirubin 2.70 H Direct Bilirubin 2.2 H AST 110 H ALT 82 H Alkaline Phosphatase 312 H Ammonia Total Protein 5.2 L Albumin 3.0 L Lipase 11/12/21 11/12/21 05:10 06:11 RBC Hgb Hct MCHC RDW Seg Neuts % (Manual) Lymphocytes % (Manual) Nucleated RBC % Seg Neutrophils # Man Lymphocytes # (Manual) PT INR Potassium 3.2 L Chloride Carbon Dioxide BUN 37 H Creatinine 1.3 H Glucose 213 H POC Glucose 203 H Total Bilirubin 3.80 H Direct Bilirubin AST 99 H ALT 70 H Alkaline Phosphatase 297 H Ammonia Total Protein 4.8 L Albumin 2.8 L Lipase 2111 H - Diagnostic Findings CT scan - chest: image reviewed (reviewed outside CT from [facility]) Assessment and Plan 76 y/o female with left hilar mass, concern for malignancy, primary lung vs met. 1. Patient needs tissue biopsy. 2. Should have been done at [place] as they have access to EBUS but pulmonary was not consulted then 3. WIll attempt blind needle biopsy here or if endobronchial lesion is present will obtain samples from that. 4. Earliest this can happen would be Thursday 5. MRI abdomen negative 6. Guarded to poor prognosis. Would suggest if possible to get an MRI of head. May not be feasible as abdomen was compromised by patient breathing pattern. CT showed no edema or increased intracranial pressure so should be safe. Currently on schedule for 1pm Thursday. Please make NPO after Midnight on .
--- NOTE | 2021-11-12 15:17 | Gastroenterology Progress Note ---
Assessment and Plan # Abdominal pain # Elevated LFTs - MRI showed mild hepatic steatosis, unremarkable biliary system, no evidence of gallstones or biliary ductal dilation, normal pancreas. - concerning for pancreatitis given abdominal pain and elevated lipase although imaging did not show signs of pancreatitis. rec: - Continue to monitor LFTs and INR. - Supportive care and management for sepsis and electrolyte abnormalities per primary team. - patient planned for bronch on Thursday with pulm for lung mass bx. - check lipid panel. - avoid hepatotoxins. - Patient Problems (1) Pancreatitis Current Visit: Yes Status: Acute Qualifiers: Chronicity: acute Pancreatitis type: unspecified pancreatitis type Acute pancreatitis complication: unspecified Qualified Code(s): K85.90 - Acute pancreatitis without necrosis or infection, unspecified Subjective Date of service: 11/12/21 Interval history: Patient tolerating clear liquids. persistent abdominal pain. Objective - Constitutional Vitals: Temp Pulse Resp BP Pulse Ox 98.6 F 111 H 26 H 102/53 90 11/12/21 08:24 11/12/21 08:24 11/12/21 09:06 11/12/21 08:24 11/12/21 08:24 General appearance: no acute distress - Respiratory Respiratory effort: normal - Cardiovascular Rhythm: regular Heart Sounds: Present: S1 & S2 - Gastrointestinal General gastrointestinal: Present: soft, tender, non-distended - Integumentary Integumentary: Present: clear, warm - Neurologic Neurological: disoriented - Labs CBC & Chem 7: 11/12/21 05:10 11/12/21 05:10 Labs: Laboratory Results - last 24 hr 11/12/21 11/12/21 11/12/21 00:26 05:10 05:10 WBC 8.3 RBC 3.10 L Hgb 9.7 L Hct 28.8 L MCV 93 MCH 31 MCHC 34 RDW 16.0 H Plt Count 196 Lymph % (Auto) Not Reportable [place] % (Auto) Not Reportable Eos % (Auto) Not Reportable Baso % (Auto) Not Reportable Lymph # (Auto) Not Reportable [place] # (Auto) Not Reportable Eos # (Auto) Not Reportable Baso # (Auto) Not Reportable Add Manual Diff Complete Total Counted 100 Seg Neuts % (Manual) 94.0 H Band Neutrophils % 3.0 Lymphocytes % (Manual) 1.0 L Reactive Lymphs % (Man) 0 Monocytes % (Manual) 2.0 Eosinophils % (Manual) 0 Basophils % (Manual) 0 Metamyelocytes % 0 Myelocytes % 0 Promyelocytes % 0 Blast Cells % 0 Nucleated RBC % 1.0 H Seg Neutrophils # Not Reportable Seg Neutrophils # Man 7.8 H Band Neutrophils # 0.2 Lymphocytes # (Manual) 0.1 L Abs React Lymphs (Man) 0.0 Monocytes # (Manual) 0.2 Eosinophils # (Manual) 0.0 Basophils # (Manual) 0.0 Metamyelocytes # 0.0 Myelocytes # 0.0 Promyelocytes # 0.0 Blast Cells # 0.0 WBC Morphology Not Reportable Hypersegmented Neuts Not Reportable Hyposegmented Neuts Not Reportable Hypogranular Neuts Not Reportable Smudge Cells Not Reportable Toxic Granulation Not Reportable Toxic Vacuolation Not Reportable Dohle Bodies Not Reportable Pelger-Huet Anomaly Not Reportable Brenda Rods Not Reportable Platelet Estimate Consistent w auto Clumped Platelets Not Reportable Plt Clumps, EDTA Not Reportable Large Platelets Not Reportable Giant Platelets Not Reportable Platelet Satelliting Not Reportable Plt Morphology Comment Not Reportable RBC Morphology Not Reportable Dimorphic RBCs Not Reportable Polychromasia Not Reportable Hypochromasia 2+ Poikilocytosis Not Reportable Anisocytosis Not Reportable Microcytosis Not Reportable Macrocytosis 1+ Spherocytes Not Reportable Pappenheimer Bodies Not Reportable Sickle Cells Not Reportable Target Cells 1+ Tear Drop Cells Not Reportable Ovalocytes Not Reportable Helmet Cells Not Reportable Fierro-Pinon Bodies Not Reportable Stewart Rings Not Reportable [place] Cells Not Reportable Bite Cells Not Reportable Crenated Cell Not Reportable Elliptocytes Not Reportable Acanthocytes (Spur) Not Reportable Rouleaux Not Reportable Hemoglobin C Crystals Not Reportable Schistocytes Few Malaria parasites Not Reportable Son Bodies Not Reportable Hem Pathologist Commnt No Sodium 141 Potassium 3.2 L Chloride 99.1 Carbon Dioxide 29 Anion Gap 16 BUN 37 H Creatinine 1.3 H Estimated GFR 48 BUN/Creatinine Ratio 28 Glucose 213 H POC Glucose 160 H Calcium 8.6 Magnesium 1.90 Total Bilirubin 3.80 H AST 99 H ALT 70 H Alkaline Phosphatase 297 H Total Protein 4.8 L Albumin 2.8 L Albumin/Globulin Ratio 1.4 Lipase 2111 H 11/12/21 06:11 WBC RBC Hgb Hct MCV MCH MCHC RDW Plt Count Lymph % (Auto) [place] % (Auto) Eos % (Auto) Baso % (Auto) Lymph # (Auto) [place] # (Auto) Eos # (Auto) Baso # (Auto) Add Manual Diff Total Counted Seg Neuts % (Manual) Band Neutrophils % Lymphocytes % (Manual) Reactive Lymphs % (Man) Monocytes % (Manual) Eosinophils % (Manual) Basophils % (Manual) Metamyelocytes % Myelocytes % Promyelocytes % Blast Cells % Nucleated RBC % Seg Neutrophils # Seg Neutrophils # Man Band Neutrophils # Lymphocytes # (Manual) Abs React Lymphs (Man) Monocytes # (Manual) Eosinophils # (Manual) Basophils # (Manual) Metamyelocytes # Myelocytes # Promyelocytes # Blast Cells # WBC Morphology Hypersegmented Neuts Hyposegmented Neuts Hypogranular Neuts Smudge Cells Toxic Granulation Toxic Vacuolation Dohle Bodies Pelger-Huet Anomaly Brenda Rods Platelet Estimate Clumped Platelets Plt Clumps, EDTA Large Platelets Giant Platelets Platelet Satelliting Plt Morphology Comment RBC Morphology Dimorphic RBCs Polychromasia Hypochromasia Poikilocytosis Anisocytosis Microcytosis Macrocytosis Spherocytes Pappenheimer Bodies Sickle Cells Target Cells Tear Drop Cells Ovalocytes Helmet Cells Fierro-Pinon Bodies Stewart Rings [place] Cells Bite Cells Crenated Cell Elliptocytes Acanthocytes (Spur) Rouleaux Hemoglobin C Crystals Schistocytes Malaria parasites Son Bodies Hem Pathologist Commnt Sodium Potassium Chloride Carbon Dioxide Anion Gap BUN Creatinine Estimated GFR BUN/Creatinine Ratio Glucose POC Glucose 203 H Calcium Magnesium Total Bilirubin AST ALT Alkaline Phosphatase Total Protein Albumin Albumin/Globulin Ratio Lipase - Imaging MRI: report reviewed
[2021-11-13] MEDS: INSULIN LISPRO 100 UNIT/ML SUB-Q SCH ×4 (00:11→18:53)
[2021-11-13] MEDS: hydrALAZINE 20 MG/1 ML INJ IV SCH ×6 (04:50→21:15)
[2021-11-13] MEDS: SODIUM CHLORIDE 0.9% 1000 ML 1,000 ML IV SCH ×3 (04:51→21:27)
[2021-11-13] MEDS: hydroCHLOROthiazide 25 MG TAB PO SCH (11:24)
[2021-11-13] MEDS: FAMOTIDINE 20 MG/2 ML INJ IV SCH (11:24)
[2021-11-13] MEDS: dilTIAZem CD 120 MG CAP PO SCH (11:24)
[2021-11-13] MEDS: METOPROLOL SUCCINATE XL 25 MG TAB PO SCH ×2 (11:25→21:14)
[2021-11-13] MEDS: LOSARTAN 50 MG TAB PO SCH (11:26)
--- NOTE | 2021-11-13 12:38 | Progress Note ---
Assessment and Plan Assessment and plan: This is a 76 year old female who presented to [facility] ED via EMS for altered mental status and abdominal pain and distention. Family states that they called EMS as pt was not acting herself. Past medical history of breast cancer s/p mastectomy, hypertension, hyperlipidemia, and SIADH. CT scan of the head shows age-related parenchymal volume loss and microvascular ischemic change. No acute intracranial abnormality. CT abdomen and pelvis shows interval development of a large left lower lobe mass. GI consult for suspected pancreatitis given abdominal pain and elevated lipase. Initial work-up in the ED shows elevated LFTs, normal sodium, elevated lipase in 1999. The patient was admitted with diagnosis below: -- Acute toxic metabolic encephalopathy/POA/ Metabolic encephalopathy most likely secondary to mass in the left lower lobe, pancreatitis and hypokalemia. Treat the underlying cause, neurochecks and supportive care CT head without contrast findings reviewed --Hypokalemia Potassium is supplemented. Closely monitor electrolytes --History of breast cancer status post surgery; -Mass lower lobe of left lung/possible metastatic lung cancer Patient has past medical history of breast cancer status postsurgery. Obtain medical records from [facility] consulted telemetry hematology oncologist Will also consult pulmonary for possible lung biopsy CT-guided versus bronchoscopic --Acute pancreatitis; Clear liquids IV fluids. IV Pepcid Pain medications. On clear liquid diet GI consulted , evaluation noted and appreciated --Acute transaminitis; GI following, otitis panel negative Closely monitor transaminases Abdominal ultrasound if needed GI recommended MRI abdomen which is pending -Hyponatremia; Normal saline, closely monitor electrolytes, supportive care -- Hypertension; moderate control Continue current antihypertensives As needed medications --T2DM (type 2 diabetes mellitus) Accu-Cheks sliding scale coverage, ADA diet Insulin as needed --Full CODE STATUS Hospital course: 11/12/2021. MRI / MRCP pending to evaluate for biliary ductal obstruction as well as any signs of metastatic disease in the liver from recently diagnosed lung mass. Continue supportive care and n.p.o. status. We will consult pulmonary for further evaluation for possible bronchoscopy. Follow-up serial lipase 11/13/2021. Patient for MRI brain today to assess for brain mets. Continue to monitor LFTs and INR. Supportive care and management for sepsis and electrolyte abnormalities per primary team. Patient planned for bronch on Thursday with pulm for lung mass bx. Pulmonary and GI following. Family at the bedside and discussed plan of care in detail. History Interval history: No new issues overnight Hospitalist Physical - Constitutional Vitals: Temp Pulse Resp BP Pulse Ox 97.9 F 97 H 16 125/66 99 11/13/21 11:17 11/13/21 11:26 11/13/21 11:17 11/13/21 11:26 11/13/21 11:17 General appearance: Present: well-nourished, cachectic, other (Chronically ill looking) - EENT Eyes: Present: PERRL, EOM intact ENT: hearing intact, clear oral mucosa, dentition normal - Neck Neck: Present: supple, normal ROM - Respiratory Respiratory effort: normal Respiratory: bilateral: CTA - Cardiovascular Rhythm: regular Heart Sounds: Present: S1 & S2. Absent: gallop, rub - Extremities Extremities: no ischemia, No edema, Full ROM - Abdominal General gastrointestinal: soft, non-tender, non-distended, normal bowel sounds - Integumentary Integumentary: Present: clear, warm, dry - Neurologic Neurologic: CNII-XII intact, moves all extremities HEART Score - HEART Score Troponin: Troponin T 0.018 ng/mL (0.00-0.029) 11/10/21 21:10 Results - Labs CBC & Chem 7: 11/12/21 05:10 11/12/21 05:10 Labs: Laboratory Last Values WBC 8.3 K/mm3 (4.5-11.0) 11/12/21 05:10 RBC 3.10 M/mm3 (3.65-5.03) L 11/12/21 05:10 Hgb 9.7 gm/dl (10.1-14.3) L 11/12/21 05:10 Hct 28.8 % (30.3-42.9) L 11/12/21 05:10 MCV 93 fl (79-97) 11/12/21 05:10 MCH 31 pg (28-32) 11/12/21 05:10 MCHC 34 % (30-34) 11/12/21 05:10 RDW 16.0 % (13.2-15.2) H 11/12/21 05:10 Plt Count 196 K/mm3 (140-440) 11/12/21 05:10 Lymph % (Auto) Not Reportable 11/12/21 05:10 [place] % (Auto) Not Reportable 11/12/21 05:10 Eos % (Auto) Not Reportable 11/12/21 05:10 Baso % (Auto) Not Reportable 11/12/21 05:10 Lymph # (Auto) Not Reportable 11/12/21 05:10 Tate # (Auto) Not Reportable 11/12/21 05:10 Eos # (Auto) Not Reportable 11/12/21 05:10 Baso # (Auto) Not Reportable 11/12/21 05:10 Add Manual Diff Complete 11/12/21 05:10 Total Counted 100 11/12/21 05:10 Seg Neuts % (Manual) 94.0 % (40.0-70.0) H 11/12/21 05:10 Band Neutrophils % 3.0 % 11/12/21 05:10 Lymphocytes % (Manual) 1.0 % (13.4-35.0) L 11/12/21 05:10 Reactive Lymphs % (Man) 0 % 11/12/21 05:10 Monocytes % (Manual) 2.0 % (0.0-7.3) 11/12/21 05:10 Eosinophils % (Manual) 0 % (0.0-4.3) 11/12/21 05:10 Basophils % (Manual) 0 % (0.0-1.8) 11/12/21 05:10 Metamyelocytes % 0 % 11/12/21 05:10 Myelocytes % 0 % 11/12/21 05:10 Promyelocytes % 0 % 11/12/21 05:10 Blast Cells % 0 % 11/12/21 05:10 Nucleated RBC % 1.0 % (0.0-0.9) H 11/12/21 05:10 Seg Neutrophils # Not Reportable 11/12/21 05:10 Seg Neutrophils # Man 7.8 K/mm3 (1.8-7.7) H 11/12/21 05:10 Band Neutrophils # 0.2 K/mm3 11/12/21 05:10 Lymphocytes # (Manual) 0.1 K/mm3 (1.2-5.4) L 11/12/21 05:10 Abs React Lymphs (Man) 0.0 K/mm3 11/12/21 05:10 Monocytes # (Manual) 0.2 K/mm3 (0.0-0.8) 11/12/21 05:10 Eosinophils # (Manual) 0.0 K/mm3 (0.0-0.4) 11/12/21 05:10 Basophils # (Manual) 0.0 K/mm3 (0.0-0.1) 11/12/21 05:10 Metamyelocytes # 0.0 K/mm3 11/12/21 05:10 Myelocytes # 0.0 K/mm3 11/12/21 05:10 Promyelocytes # 0.0 K/mm3 11/12/21 05:10 Blast Cells # 0.0 K/mm3 11/12/21 05:10 WBC Morphology Not Reportable 11/12/21 05:10 Hypersegmented Neuts Not Reportable 11/12/21 05:10 Hyposegmented Neuts Not Reportable 11/12/21 05:10 Hypogranular Neuts Not Reportable 11/12/21 05:10 Smudge Cells Not Reportable 11/12/21 05:10 Toxic Granulation Not Reportable 11/12/21 05:10 Toxic Vacuolation Not Reportable 11/12/21 05:10 Dohle Bodies Not Reportable 11/12/21 05:10 Pelger-Huet Anomaly Not Reportable 11/12/21 05:10 Brenda Rods Not Reportable 11/12/21 05:10 Platelet Estimate Consistent w auto 11/12/21 05:10 Clumped Platelets Not Reportable 11/12/21 05:10 Plt Clumps, EDTA Not Reportable 11/12/21 05:10 Large Platelets Not Reportable 11/12/21 05:10 Giant Platelets Not Reportable 11/12/21 05:10 Platelet Satelliting Not Reportable 11/12/21 05:10 Plt Morphology Comment Not Reportable 11/12/21 05:10 RBC Morphology Not Reportable 11/12/21 05:10 Dimorphic RBCs Not Reportable 11/12/21 05:10 Polychromasia Not Reportable 11/12/21 05:10 Hypochromasia 2+ 11/12/21 05:10 Poikilocytosis Not Reportable 11/12/21 05:10 Anisocytosis Not Reportable 11/12/21 05:10 Microcytosis Not Reportable 11/12/21 05:10 Macrocytosis 1+ 11/12/21 05:10 Spherocytes Not Reportable 11/12/21 05:10 Pappenheimer Bodies Not Reportable 11/12/21 05:10 Sickle Cells Not Reportable 11/12/21 05:10 Target Cells 1+ 11/12/21 05:10 Tear Drop Cells Not Reportable 11/12/21 05:10 Ovalocytes Not Reportable 11/12/21 05:10 Helmet Cells Not Reportable 11/12/21 05:10 Fierro-Hamberg Bodies Not Reportable 11/12/21 05:10 [place] Rings Not Reportable 11/12/21 05:10 [place] Cells Not Reportable 11/12/21 05:10 Bite Cells Not Reportable 11/12/21 05:10 Crenated Cell Not Reportable 11/12/21 05:10 Elliptocytes Not Reportable 11/12/21 05:10 Acanthocytes (Spur) Not Reportable 11/12/21 05:10 Rouleaux Not Reportable 11/12/21 05:10 Hemoglobin C Crystals Not Reportable 11/12/21 05:10 Schistocytes Few 11/12/21 05:10 Malaria parasites Not Reportable 11/12/21 05:10 Son Bodies Not Reportable 11/12/21 05:10 Hem Pathologist Commnt No 11/12/21 05:10 PT 19.7 Sec. (12.2-14.9) H 11/10/21 21:10 INR 1.44 (0.87-1.13) H 11/10/21 21:10 APTT 34.2 Sec. (24.2-36.6) 11/10/21 21:10 Sodium 141 mmol/L (137-145) 11/12/21 05:10 Potassium 3.2 mmol/L (3.6-5.0) L 11/12/21 05:10 Chloride 99.1 mmol/L (98-107) 11/12/21 05:10 Carbon Dioxide 29 mmol/L (22-30) 11/12/21 05:10 Anion Gap 16 mmol/L 11/12/21 05:10 BUN 37 mg/dL (7-17) H 11/12/21 05:10 Creatinine 1.3 mg/dL (0.6-1.2) H 11/12/21 05:10 Estimated GFR 48 ml/min 11/12/21 05:10 BUN/Creatinine Ratio 28 % 11/12/21 05:10 Glucose 213 mg/dL (65-100) H 11/12/21 05:10 POC Glucose 128 mg/dL (70-105) H 11/13/21 05:18 Lactic Acid 1.90 mmol/L (0.7-2.0) 11/10/21 21:10 Calcium 8.6 mg/dL (8.4-10.2) 11/12/21 05:10 Magnesium 1.90 mg/dL (1.7-2.3) 11/12/21 05:10 Total Bilirubin 3.80 mg/dL (0.1-1.2) H 11/12/21 05:10 Direct Bilirubin 2.2 mg/dL (0-0.2) H 11/11/21 08:04 Indirect Bilirubin 0.5 mg/dL 11/11/21 08:04 AST 99 units/L (5-40) H 11/12/21 05:10 ALT 70 units/L (7-56) H 11/12/21 05:10 Alkaline Phosphatase 297 units/L (35-129) H 11/12/21 05:10 Ammonia 18.0 umol/L (25-60) L 11/10/21 21:10 Troponin T 0.018 ng/mL (0.00-0.029) 11/10/21 21:10 Total Protein 4.8 g/dL (6.3-8.2) L 11/12/21 05:10 Albumin 2.8 g/dL (3.9-5) L 11/12/21 05:10 Albumin/Globulin Ratio 1.4 % 11/12/21 05:10 Lipase 2111 units/L (13-60) H 11/12/21 05:10 Plasma/Serum Alcohol < 0.01 % (0-0.07) 11/10/21 21:10 Hepatitis A IgM Ab Non-reactive (NonReactive) 11/11/21 08:04 Hep Bs Antigen Non-reactive (Negative) 11/11/21 08:04 Hep B Core IgM Ab Non-reactive (NonReactive) 11/11/21 08:04 Hepatitis C Antibody Non-reactive (NonReactive) 11/11/21 08:04 Pulido/IV: Voiding Method Incontinent Active Medications - Current Medications Current Medications: Generic Name Dose Route Start Last Admin Trade Name Freq PRN Reason Stop Dose Admin Acetaminophen 650 mg 11/10/21 22:52 Acetaminophen 325 Mg Tab PO Q4H PRN Pain MILD(1-3)/Fever >100.5/HERRERA Dextrose 50 ml 11/10/21 22:52 Dextrose 50% In Water (25gm) 50 Ml Syringe IV Q30MIN PRN Hypoglycemia Protocol Diltiazem HCl 120 mg 11/11/21 10:00 11/13/21 11:24 Diltiazem Cd 120 Mg Cap PO 120 mg DAILY SIOBHAN Administration Famotidine 20 mg 11/11/21 10:00 11/13/21 11:24 Famotidine 20 Mg/2 Ml Inj IV 20 mg DAILY SIOBHAN Administration Hydralazine HCl 20 mg 11/11/21 14:00 11/13/21 11:25 Hydralazine 20 Mg/1 Ml Inj IV 20 mg Q4HR SIOBHAN Administration Hydrochlorothiazide 25 mg 11/11/21 10:00 11/13/21 11:24 Hydrochlorothiazide 25 Mg Tab PO 25 mg QDAY SIOBHAN Administration Sodium Chloride 1,000 mls @ 100 mls/hr 11/10/21 23:00 11/13/21 04:51 Nacl 0.9% 1000 Ml IV 100 mls/hr DIRECT SIOBHAN Administration Insulin Human Lispro 0 unit 11/11/21 00:00 11/13/21 07:40 Insulin Lispro 100 Unit/Ml SUB-Q Not Given Q6HR [facility] Protocol Losartan Potassium 50 mg 11/11/21 10:00 11/13/21 11:26 Losartan 50 Mg Tab PO 50 mg QDAY SIOBHAN Administration Metoprolol Succinate 25 mg 11/11/21 10:00 11/13/21 11:25 Metoprolol Succinate Xl 25 Mg Tab PO 25 mg BID SIOBHAN Administration Miscellaneous Medication 1 mg 11/11/21 10:00 Anastrozole [Arimidex] PO DAILY SIOBHAN Morphine Sulfate 2 mg 11/10/21 22:52 11/12/21 20:15 Morphine 2 Mg/1 Ml Inj IV 2 mg Q4H PRN Administration Pain, Moderate (4-6) Morphine Sulfate 4 mg 11/10/21 22:52 11/11/21 09:51 Morphine 4 Mg/1 Ml Inj IV 4 mg Q4H PRN Administration Pain , Severe (7-10) Ondansetron HCl 4 mg 11/10/21 22:52 11/11/21 09:51 Ondansetron 4 Mg/2 Ml Inj IV 4 mg Q8H PRN Administration Nausea And Vomiting Sodium Chloride 10 ml 11/11/21 10:00 11/13/21 07:41 Sodium Chloride 0.9% 10 Ml Flush Syringe IV Not Given BID SIOBHAN Sodium Chloride 10 ml 11/10/21 22:52 Sodium Chloride 0.9% 10 Ml Flush Syringe IV PRN PRN LINE FLUSH Nutrition/Malnutrition Assess - Dietary Evaluation Nutrition/Malnutrition Findings: Nutrition Notes Start: 11/11/21 14:39 Freq: Status: Active Protocol: Document 11/11/21 14:39 SELENE (Rec: 11/11/21 14:54 SELENE [email or web address]) Nutrition Notes Need for Assessment generated from: MD Order,Education Initial or Follow up Assessment Current Diagnosis Diabetes,Hypertension, Hyperlipidemia Other Pertinent Diagnosis AMS, LLL mass, Pancreatitis, Elevated LFTs Current Diet NPO Labs/Tests K 3.5 BUN 32 Cr 1.3 Lipase 2550 (11/10) Pertinent Medications NS at 100ml/hr Height 4 ft 3 in Weight 40.91 kg Usual Body Weight 59.09 kg [place] Body Weight (kg) 25.00 BMI 24.3 Intake Prior to Admission Poor Weight change and time frame Per pt's family report, pt with 40# unintentional wt loss x 3 months. Unable to obtain pt's current wt as bed scale not functioning properly Subjective/Other Information RD consulted for diet education. Pt not appropriate for diet education; she is very confused at time of visit (13:21). Pt's family members reports pt not eating and c/o pain upon swallowing; pt is edentulous. Physical exam revealed subcutaneous fat loss as well as muscle loss. PMHx includes breast CA. Per GI, pt to be checked for presence of gallstones; may also need an EGD to assess for presence of strictures. Burn Absent Trauma Absent GI Symptoms Constipation Difficulty In Chewing Current % PO Negligible Minimum of two criteria Yes Energy Intake (severe) < or equal to 50% Estimated Energy Requirement > or equal to 5 days Interpretation of Weight Loss (severe) >7.5% in 3 months Body Fat Depletion Moderate depletion (severe) Muscle Mass Moderate Depletion (severe) Protein-Calorie Malnutrition Severe #1 Nutrition Diagnosis Malnutrition Etiology advanced age, chronic illness As Evidenced by Signs and Symptoms unintentional wt loss, decreased PO intake, subcutaneous fat loss, muscle loss Is patient on ventilator? No Is Patient Ambulatory and/or Out of Bed No REE-([facility]-confined to bed) 808.272 Kcal/Kg value to use for calculation 30 Approximate Energy Requirements Using 1227 kcal/Kg Calculation Used for Recommendations Kcal/kg Additional Notes Pro needs 1.2-1.5g/k-61g/ day Fluid needs 1ml/kcal Nutrition Intervention Change Diet Order: Advance diet when medically feasible Nutrition Support: Consider EN support to meet nutrient needs and prevent further wt loss Goal #1 Either diet advancement or EN support to meet nutrient needs Goal #2 Wt maintenance and/or gain Anticipated Discharge Needs: Pt may need EN support to maintain adequate nutritional intake Follow-Up By: 11/13/21 Additional Comments F/U: Diet advancement, POC
--- NOTE | 2021-11-13 12:56 | Progress Note ---
Assessment and Plan 76 y/o female with left hilar mass, concern for malignancy, primary lung vs met. 11/13/21: biposy planned for Thursday at 1300. Follow up MRI results. Family wishes for biopsy results to be sent to [facility] as well as a lung doc mariana [facility]. Please check labs Thursday am so that anesthesia can assess. 1. Patient needs tissue biopsy. 2. Should have been done at [place] as they have access to EBUS but pulmonary was not consulted then 3. WIll attempt blind needle biopsy here or if endobronchial lesion is present will obtain samples from that. 4. Earliest this can happen would be Thursday 5. MRI abdomen negative 6. Guarded to poor prognosis. Would suggest if possible to get an MRI of head. May not be feasible as abdomen was compromised by patient breathing pattern. CT showed no edema or increased intracranial pressure so should be safe. Currently on schedule for 1pm Thursday. Please make NPO after Midnight on Cristal rsday. Subjective Date of service: 11/13/21 Interval history: Awake, still confused. Family at bedside. Na is 141 today. Objective Vital Signs - 12hr 11/13/21 11/13/21 11/13/21 03:53 04:50 08:26 Temperature 98.1 F 98.4 F Pulse Rate 104 H 103 H 96 H Respiratory 16 18 Rate Blood Pressure 124/55 124/55 Blood Pressure 132/75 [Left] O2 Sat by Pulse 84 97 Oximetry 11/13/21 11/13/21 11/13/21 09:47 11:17 11:24 Temperature 97.9 F Pulse Rate 92 H 97 H Respiratory 16 Rate Blood Pressure 153/71 125/66 Blood Pressure [Left] O2 Sat by Pulse 98 99 Oximetry 11/13/21 11/13/21 11:25 11:26 Temperature Pulse Rate 97 H 97 H Respiratory Rate Blood Pressure 125/66 125/66 Blood Pressure [Left] O2 Sat by Pulse Oximetry Constitutional: no acute distress, other (cachectic and confused.) Eyes: non-icteric ENT: oropharynx moist Neck: supple Effort: mildly labored Ascultation: Bilateral: clear Percussion: Bilateral: not dull Tactile fremitus: Bilateral: normal Cardiovascular: regular rate and rhythm Neurologic: unable to assess, other (very slowed mentation) CBC and BMP: 11/12/21 05:10 11/12/21 05:10 ABG, PT/INR, D-dimer: PT/INR, D-dimer PT 19.7 Sec. (12.2-14.9) H 11/10/21 21:10 INR 1.44 (0.87-1.13) H 11/10/21 21:10 Abnormal lab findings: Abnormal Labs 11/10/21 11/10/21 11/10/21 19:26 19:26 21:10 RBC 3.06 L Hgb 9.9 L Hct 28.2 L MCHC 35 H RDW 16.0 H Seg Neuts % (Manual) 94.0 H Lymphocytes % (Manual) 2.0 L Nucleated RBC % Seg Neutrophils # Man Lymphocytes # (Manual) 0.2 L PT 19.7 H INR 1.44 H Potassium 2.9 L* Chloride 92.5 L Carbon Dioxide BUN 30 H Creatinine 1.5 H Glucose 134 H POC Glucose Total Bilirubin 2.60 H Direct Bilirubin AST 135 H ALT 84 H Alkaline Phosphatase 311 H Ammonia Total Protein 5.3 L Albumin 3.2 L Lipase 2550 H 11/10/21 11/11/21 11/11/21 21:10 03:43 03:43 RBC 3.14 L Hgb 9.9 L Hct 29.2 L MCHC RDW 16.0 H Seg Neuts % (Manual) 93.0 H Lymphocytes % (Manual) 1.0 L Nucleated RBC % 2.0 H Seg Neutrophils # Man 8.2 H Lymphocytes # (Manual) 0.1 L PT INR Potassium 3.5 L D Chloride 95.0 L Carbon Dioxide 31 H BUN 32 H Creatinine 1.3 H Glucose 126 H POC Glucose Total Bilirubin Direct Bilirubin AST ALT Alkaline Phosphatase Ammonia 18.0 L Total Protein Albumin Lipase 11/11/21 11/12/21 11/12/21 08:04 00:26 05:10 RBC 3.10 L Hgb 9.7 L Hct 28.8 L MCHC RDW 16.0 H Seg Neuts % (Manual) 94.0 H Lymphocytes % (Manual) 1.0 L Nucleated RBC % 1.0 H Seg Neutrophils # Man 7.8 H Lymphocytes # (Manual) 0.1 L PT INR Potassium Chloride Carbon Dioxide BUN Creatinine Glucose POC Glucose 160 H Total Bilirubin 2.70 H Direct Bilirubin 2.2 H AST 110 H ALT 82 H Alkaline Phosphatase 312 H Ammonia Total Protein 5.2 L Albumin 3.0 L Lipase 11/12/21 11/12/21 11/12/21 05:10 06:11 23:43 RBC Hgb Hct MCHC RDW Seg Neuts % (Manual) Lymphocytes % (Manual) Nucleated RBC % Seg Neutrophils # Man Lymphocytes # (Manual) PT INR Potassium 3.2 L Chloride Carbon Dioxide BUN 37 H Creatinine 1.3 H Glucose 213 H POC Glucose 203 H 130 H Total Bilirubin 3.80 H Direct Bilirubin AST 99 H ALT 70 H Alkaline Phosphatase 297 H Ammonia Total Protein 4.8 L Albumin 2.8 L Lipase 2111 H 11/13/21 05:18 RBC Hgb Hct MCHC RDW Seg Neuts % (Manual) Lymphocytes % (Manual) Nucleated RBC % Seg Neutrophils # Man Lymphocytes # (Manual) PT INR Potassium Chloride Carbon Dioxide BUN Creatinine Glucose POC Glucose 128 H Total Bilirubin Direct Bilirubin AST ALT Alkaline Phosphatase Ammonia Total Protein Albumin Lipase
--- NOTE | 2021-11-13 13:17 | Hem/Onc Consultation ---
History of Present Illness - Reason for Consult Consult date: 11/13/21 Lung mass - History of Present Illness HEME/ONC note Seen via amplify CPT 55560 Dx Lung mass 76 year old female with altered mental status and abdominal pain and distention Pmhx of breast cancer diagnosed in 2018 s/p mastectomy, hypertension, hyperlipidemia, and SIADH. Patient appears weak and cachectic, but denies decreased appetite or decreased p.o. intake. U CT scan of the head shows age-related parenchymal volume loss and microvascular ischemic change. No acute intracranial abnormality. CT abdomen and pelvis shows interval development of a large left lower lobe mass. Oncology was consulted for evaluation of lung mass. GI following for suspected pancreatitis given abdominal pain and elevated lipase. Unclear etiology for pancreatitis at this time. Patient examined at bedside, asleep, accompanied by family, in no acute distress noted. Family reports being aware of the lung mass since 10/24/21 and had an appointment with pulmonary at [facility] to arrange bronch. MRI showed mild hepatic steatosis, unremarkable biliary system, no evidence of gallstones or biliary ductal dilation, normal pancreas. - concerning for pancreatitis given abdominal pain and elevated lipase although imaging did not show signs of pancreatitis. ASSESSMENT: Large left lower lobe mass Elevated liver enzymes and lipase, suspected pancreatitis ALVIN, crea 1.3 PLAN: Needs lung mass tissue biopsy, planned for ThursdayNov 15 No plans for inpatient anti-tumor therapy Outpatient follow up with established Oncologist Dr. Truong Witt AM labs to include: CEA, iron studies, LDH, retic, hgEP Case d/w Dr. Fabio Lua Laboratory Last Values WBC 8.3 K/mm3 (4.5-11.0) 11/12/21 05:10 Hgb 9.7 gm/dl (10.1-14.3) L 11/12/21 05:10 Hct 28.8 % (30.3-42.9) L 11/12/21 05:10 MCV 93 fl (79-97) 11/12/21 05:10 Plt Count 196 K/mm3 (140-440) 11/12/21 05:10 Seg Neuts % (Manual) 94.0 % (40.0-70.0) H 11/12/21 05:10 Lymphocytes % (Manual) 1.0 % (13.4-35.0) L 11/12/21 05:10 Nucleated RBC % 1.0 % (0.0-0.9) H 11/12/21 05:10 Seg Neutrophils # Man 7.8 K/mm3 (1.8-7.7) H 11/12/21 05:10 Lymphocytes # (Manual) 0.1 K/mm3 (1.2-5.4) L 11/12/21 05:10 PT 19.7 Sec. (12.2-14.9) H 11/10/21 21:10 INR 1.44 (0.87-1.13) H 11/10/21 21:10 APTT 34.2 Sec. (24.2-36.6) 11/10/21 21:10 Creatinine 1.3 mg/dL (0.6-1.2) H 11/12/21 05:10 Lactic Acid 1.90 mmol/L (0.7-2.0) 11/10/21 21:10 Total Bilirubin 3.80 mg/dL (0.1-1.2) H 11/12/21 05:10 Direct Bilirubin 2.2 mg/dL (0-0.2) H 11/11/21 08:04 Indirect Bilirubin 0.5 mg/dL 11/11/21 08:04 AST 99 units/L (5-40) H 11/12/21 05:10 ALT 70 units/L (7-56) H 11/12/21 05:10 Alkaline Phosphatase 297 units/L (35-129) H 11/12/21 05:10 Lipase 2111 units/L (13-60) H 11/12/21 05:10 Plasma/Serum Alcohol < 0.01 % (0-0.07) 11/10/21 21:10 Hepatitis A IgM Ab Non-reactive (NonReactive) 11/11/21 08:04 Hep Bs Antigen Non-reactive (Negative) 11/11/21 08:04 Hep B Core IgM Ab Non-reactive (NonReactive) 11/11/21 08:04 Hepatitis C Antibody Non-reactive (NonReactive) 11/11/21 08:04 . Past History Past Medical History: arthritis (Hyponatremia), diabetes, hypertension, other (Breast cancer) Past Surgical History: Other ( Yes (BX)) Social history: no significant social history Family history: hypertension Medications and Allergies Allergies Allergy/AdvReac Type Severity Reaction Status Date / Time aspirin Allergy Hives/upset Verified 09/12/21 15:06 stomach Home Medications Medication Instructions Recorded Confirmed Last Taken Type Pravastatin [Pravachol] 40 mg PO QHS 04/14/17 09/12/21 09/10/21 History metFORMIN [Glucophage] 500 mg PO BID 04/14/17 09/12/21 09/10/21 History Anastrozole [Arimidex] 1 mg PO DAILY 09/12/21 09/12/21 09/10/21 History Diltiazem HCl [Cardizem LA] 120 mg PO QDAY 09/12/21 09/12/21 09/10/21 History Metoprolol Xl [Toprol Xl] 25 mg PO BID 09/12/21 09/12/21 09/10/21 History hydrALAZINE [Apresoline TAB] 25 mg PO BID 09/12/21 09/12/21 09/10/21 History hydroCHLOROthiazide [HCTZ] 25 mg PO QDAY 09/12/21 09/12/21 09/10/21 History Losartan [Cozaar] 50 mg PO QDAY tablet 09/16/21 Unknown Rx Tolvaptan [Samsca] 15 mg PO Q24H #30 tablet 09/16/21 Unknown Rx dilTIAZem CD [Cardizem CD] 120 mg PO DAILY capsule 09/16/21 Unknown Rx Active Meds: Active Medications Acetaminophen (Acetaminophen 325 Mg Tab) 650 mg PO Q4H PRN PRN Reason: Pain MILD(1-3)/Fever >100.5/HERRERA Dextrose (Dextrose 50% In Water (25gm) 50 Ml Syringe) 50 ml IV Q30MIN PRN; Protocol PRN Reason: Hypoglycemia Diltiazem HCl (Diltiazem Cd 120 Mg Cap) 120 mg PO DAILY [facility] Last Admin: 11/13/21 11:24 Dose: 120 mg Famotidine (Famotidine 20 Mg/2 Ml Inj) 20 mg IV DAILY [facility] Last Admin: 11/13/21 11:24 Dose: 20 mg Hydralazine HCl (Hydralazine 20 Mg/1 Ml Inj) 20 mg IV Q4HR [facility] Last Admin: 11/13/21 11:25 Dose: 20 mg Hydrochlorothiazide (Hydrochlorothiazide 25 Mg Tab) 25 mg PO QDAY [facility] Last Admin: 11/13/21 11:24 Dose: 25 mg Sodium Chloride (Nacl 0.9% 1000 Ml) 1,000 mls @ 100 mls/hr IV DIRECT [facility] Last Admin: 11/13/21 04:51 Dose: 100 mls/hr Insulin Human Lispro (Insulin Lispro 100 Unit/Ml) 0 unit SUB-Q Q6HR [facility]; Protocol Last Admin: 11/13/21 07:40 Dose: Not Given Losartan Potassium (Losartan 50 Mg Tab) 50 mg PO QDAY [facility] Last Admin: 11/13/21 11:26 Dose: 50 mg Metoprolol Succinate (Metoprolol Succinate Xl 25 Mg Tab) 25 mg PO BID [facility] Last Admin: 11/13/21 11:25 Dose: 25 mg Miscellaneous Medication (Anastrozole [Arimidex]) 1 mg PO DAILY [facility] Morphine Sulfate (Morphine 2 Mg/1 Ml Inj) 2 mg IV Q4H PRN PRN Reason: Pain, Moderate (4-6) Last Admin: 11/12/21 20:15 Dose: 2 mg Morphine Sulfate (Morphine 4 Mg/1 Ml Inj) 4 mg IV Q4H PRN PRN Reason: Pain , Severe (7-10) Last Admin: 11/11/21 09:51 Dose: 4 mg Ondansetron HCl (Ondansetron 4 Mg/2 Ml Inj) 4 mg IV Q8H PRN PRN Reason: Nausea And Vomiting Last Admin: 11/11/21 09:51 Dose: 4 mg Sodium Chloride (Sodium Chloride 0.9% 10 Ml Flush Syringe) 10 ml IV BID [facility] Last Admin: 11/13/21 07:41 Dose: Not Given Sodium Chloride (Sodium Chloride 0.9% 10 Ml Flush Syringe) 10 ml IV PRN PRN PRN Reason: LINE FLUSH Exam - Constitutional Vitals: Last Vital Signs Temp 97.9 F 11/13/21 11:17 Pulse 97 H 11/13/21 11:26 Resp 16 11/13/21 11:17 BP 125/66 11/13/21 11:26 Pulse Ox 99 11/13/21 11:17 Results - Labs lab Results: Laboratory Results - last 24 hr 11/12/21 11/13/21 23:43 05:18 POC Glucose 130 H 128 H
--- NOTE | 2021-11-13 16:24 | Magnetic Resonance Report ---
MR brain wo con INDICATION / CLINICAL INFORMATION: AMS. TECHNIQUE: Multiplanar, multisequence MR images of the brain were obtained. COMPARISON: 11/10/21. FINDINGS: INTRACRANIAL: No restricted diffusion. No hemorrhage. Ventricular caliber is normal. No extra-axial c ollection. No mass. No herniation. Major intracranial vascular flow voids are preserved. A small ORBITS: No significant abnormality of visualized orbits. SINUSES / MASTOIDS: No significant abnormality of visualized sinuses and mastoid air cells. ADDITIONAL FINDINGS: None. IMPRESSION: 1. No significant intracranial abnormality. Signer Name: Héctor Martinez MD Signed: 11/13/2021 4:20 PM Workstation Name: [id number]
--- NOTE | 2021-11-13 18:35 | Gastroenterology Progress Note ---
Assessment and Plan # Abdominal pain # Elevated LFTs - MRI showed mild hepatic steatosis, unremarkable biliary system, no evidence of gallstones or biliary ductal dilation, normal pancreas. - concerning for pancreatitis given abdominal pain and elevated lipase although imaging did not show signs of pancreatitis. - repeat labs ordered this AM but no labs done. rec: - recommend PPI bid. - Continue to monitor LFTs and INR. - Supportive care and management for sepsis and electrolyte abnormalities per primary team. - patient planned for bronch on Thursday with pulm for lung mass bx. - check lipid panel. - discussed EGD for tomorrow with patient and family but they are declining at this time, stating too much procedure in short period of time. - avoid hepatotoxins. - Patient Problems (1) Pancreatitis Current Visit: Yes Status: Acute Qualifiers: Chronicity: acute Pancreatitis type: unspecified pancreatitis type Acute pancreatitis complication: unspecified Qualified Code(s): K85.90 - Acute pancreatitis without necrosis or infection, unspecified Subjective Date of service: 11/13/21 Interval history: No acute events. Persistent abdominal pain. No nausea/vomiting. Objective - Constitutional Vitals: Temp Pulse Resp BP Pulse Ox 97.9 F 97 H 16 125/66 99 11/13/21 11:17 11/13/21 11:26 11/13/21 11:17 11/13/21 11:26 11/13/21 11:17 General appearance: no acute distress - EENT Eyes: EOM intact ENT: hearing intact - Respiratory Respiratory effort: normal - Gastrointestinal General gastrointestinal: Present: soft, tender, non-distended - Integumentary Integumentary: Present: clear, warm - Psychiatric Psychiatric: appropriate mood/affect - Labs CBC & Chem 7: 11/12/21 05:10 11/12/21 05:10 Labs: Laboratory Results - last 24 hr 11/12/21 11/13/21 23:43 05:18 POC Glucose 130 H 128 H
[2021-11-13 23:57] LABS: Hematocrit 23.2 % (30.3-42.9); Mean Corpuscular HGB Conc 34 % (30-34); Mean Corpuscular Volume 92 fl (79-97); Platelet Count 155 K/mm3 (140-440); Red Blood Count 2.52 M/mm3 (3.65-5.03); Red Cell Distribution Width 16.4 % (13.2-15.2)
[2021-11-14] MEDS: INSULIN LISPRO 100 UNIT/ML SUB-Q SCH ×4 (00:12→17:27)
[2021-11-14 00:14] LABS: INR 1.97 (0.87-1.13)
[2021-11-14 00:17] LABS: Albumin 2.6 g/dL (3.9-5)
[2021-11-14 01:16] LABS: Calcium 8.2 mg/dL (8.4-10.2)
[2021-11-14] MEDS: hydrALAZINE 20 MG/1 ML INJ IV SCH ×6 (02:23→21:35)
--- NOTE | 2021-11-14 07:43 | Progress Note ---
Assessment and Plan 76 y/o female with left hilar mass, concern for malignancy, primary lung vs met. 11/14/21: Please repeat INR today and recheck again in the am. If greater than 2, please give FFP and even consider a dose of Vitamin K (patient is not acti vely bleeding but would like to be aggressive given her age and frail state and lack of thoracic surgery back up here). Goal would be to have the INR less than 2 to safely proceed with biopsy. NPO after midnight. 11/13/21: biposy planned for Thursday at 1300. Follow up MRI results. Family wishes for biopsy results to be sent to [facility] as well as a lung doc at [facility]. Please check labs Thursday am so that anesthesia can assess. 1. Patient needs tissue biopsy. 2. Should have been done at [place] as they have access to EBUS but pulmonary was not consulted then 3. WIll attempt blind needle biopsy here or if endobronchial lesion is present will obtain samples from that. 4. Earliest this can happen would be Thursday 5. MRI abdomen negative 6. Guarded to poor prognosis. Would suggest if possible to get an MRI of head. May not be feasible as abdomen was compromised by patient breathing pattern. CT showed no edema or increased intracranial pressure so should be safe. Cur rently on schedule for 1pm Thursday. Please make NPO after Midnight on . Subjective Date of service: 11/14/21 Interval history: Spoke to GI last night after family declined EGD. Otherwise no acute events. Reviewed labs from yesterday morning and INR is now 1.97. Not sure why. Objective Vital Signs - 12hr 11/13/21 11/13/21 11/13/21 20:14 21:14 21:15 Temperature Pulse Rate 83 86 86 Respiratory Rate Respiratory Rate [ Generalized] Blood Pressure 124/66 124/66 Blood Pressure [Left] O2 Sat by Pulse Oximetry 11/13/21 11/13/21 11/14/21 22:00 23:34 00:12 Temperature 98.4 F Pulse Rate 101 H 95 H Respiratory 18 Rate Respiratory 20 Rate [ Generalized] Blood Pressure 144/75 Blood Pressure [Left] O2 Sat by Pulse 91 94 Oximetry 11/14/21 11/14/21 11/14/21 02:23 04:00 04:26 Temperature 98.3 F Pulse Rate 101 H 94 H 89 Respiratory 14 Rate Respiratory Rate [ Generalized] Blood Pressure 144/75 87/45 Blood Pressure 122/58 [Left] O2 Sat by Pulse 89 Oximetry 11/14/21 04:44 Temperature Pulse Rate 88 Respiratory Rate Respiratory Rate [ Generalized] Blood Pressure Blood Pressure [Left] O2 Sat by Pulse Oximetry Constitutional: no acute distress, other (cachectic and confused.) Eyes: non-icteric ENT: oropharynx moist Neck: supple Effort: mildly labored Ascultation: Bilateral: clear Percussion: Bilateral: not dull Tactile fremitus: Bilateral: normal Cardiovascular: regular rate and rhythm Neurologic: unable to assess, other (very slowed mentation) CBC and BMP: 11/13/21 23:29 11/13/21 23:29 ABG, PT/INR, D-dimer: PT/INR, D-dimer PT 25.5 Sec. (12.2-14.9) H 11/13/21 23:29 INR 1.97 (0.87-1.13) H 11/13/21 23:29 Abnormal lab findings: Abnormal Labs 11/10/21 11/10/21 11/10/21 19:26 19:26 21:10 RBC 3.06 L Hgb 9.9 L Hct 28.2 L MCHC 35 H RDW 16.0 H Seg Neuts % (Manual) 94.0 H Lymphocytes % (Manual) 2.0 L Nucleated RBC % Seg Neutrophils # Man Lymphocytes # (Manual) 0.2 L PT 19.7 H INR 1.44 H Sodium Potassium 2.9 L* Chloride 92.5 L Carbon Dioxide BUN 30 H Creatinine 1.5 H Glucose 134 H POC Glucose Calcium Total Bilirubin 2.60 H Direct Bilirubin AST 135 H ALT 84 H Alkaline Phosphatase 311 H Ammonia Total Protein 5.3 L Albumin 3.2 L Lipase 2550 H 11/10/21 11/11/21 11/11/21 21:10 03:43 03:43 RBC 3.14 L Hgb 9.9 L Hct 29.2 L MCHC RDW 16.0 H Seg Neuts % (Manual) 93.0 H Lymphocytes % (Manual) 1.0 L Nucleated RBC % 2.0 H Seg Neutrophils # Man 8.2 H Lymphocytes # (Manual) 0.1 L PT INR Sodium Potassium 3.5 L D Chloride 95.0 L Carbon Dioxide 31 H BUN 32 H Creatinine 1.3 H Glucose 126 H POC Glucose Calcium Total Bilirubin Direct Bilirubin AST ALT Alkaline Phosphatase Ammonia 18.0 L Total Protein Albumin Lipase 11/11/21 11/12/21 11/12/21 08:04 00:26 05:10 RBC 3.10 L Hgb 9.7 L Hct 28.8 L MCHC RDW 16.0 H Seg Neuts % (Manual) 94.0 H Lymphocytes % (Manual) 1.0 L Nucleated RBC % 1.0 H Seg Neutrophils # Man 7.8 H Lymphocytes # (Manual) 0.1 L PT INR Sodium Potassium Chloride Carbon Dioxide BUN Creatinine Glucose POC Glucose 160 H Calcium Total Bilirubin 2.70 H Direct Bilirubin 2.2 H AST 110 H ALT 82 H Alkaline Phosphatase 312 H Ammonia Total Protein 5.2 L Albumin 3.0 L Lipase 11/12/21 11/12/21 11/12/21 05:10 06:11 23:43 RBC Hgb Hct MCHC RDW Seg Neuts % (Manual) Lymphocytes % (Manual) Nucleated RBC % Seg Neutrophils # Man Lymphocytes # (Manual) PT INR Sodium Potassium 3.2 L Chloride Carbon Dioxide BUN 37 H Creatinine 1.3 H Glucose 213 H POC Glucose 203 H 130 H Calcium Total Bilirubin 3.80 H Direct Bilirubin AST 99 H ALT 70 H Alkaline Phosphatase 297 H Ammonia Total Protein 4.8 L Albumin 2.8 L Lipase 2111 H 11/13/21 11/13/21 11/13/21 05:18 23:29 23:29 RBC 2.52 L Hgb 8.0 L Hct 23.2 L MCHC RDW 16.4 H Seg Neuts % (Manual) Lymphocytes % (Manual) Nucleated RBC % Seg Neutrophils # Man Lymphocytes # (Manual) PT 25.5 H INR 1.97 H Sodium Potassium Chloride Carbon Dioxide BUN Creatinine Glucose POC Glucose 128 H Calcium Total Bilirubin Direct Bilirubin AST ALT Alkaline Phosphatase Ammonia Total Protein Albumin Lipase 11/13/21 11/13/21 11/14/21 23:29 23:32 05:14 RBC Hgb Hct MCHC RDW Seg Neuts % (Manual) Lymphocytes % (Manual) Nucleated RBC % Seg Neutrophils # Man Lymphocytes # (Manual) PT INR Sodium 146 H Potassium 3.3 L Chloride Carbon Dioxide BUN 47 H Creatinine 1.4 H Glucose 128 H POC Glucose 136 H 143 H Calcium 8.2 L Total Bilirubin 3.80 H Direct Bilirubin AST 104 H ALT 73 H Alkaline Phosphatase 296 H Ammonia Total Protein 4.4 L Albumin 2.6 L Lipase 897 H
[2021-11-14] MEDS: SODIUM CHLORIDE 0.9% 1000 ML 1,000 ML IV SCH ×2 (08:02→21:37)
[2021-11-14] MEDS: PANTOPRAZOLE 40 MG TAB PO SCH ×2 (09:04→17:05)
--- NOTE | 2021-11-14 09:13 | Progress Note ---
Assessment and Plan Assessment and plan: This is a 76 year old female who presented to [facility] ED via EMS for altered mental status and abdominal pain and distention. Family states that they called EMS as pt was not acting herself. Past medical history of breast cancer s/p mastectomy, hypertension, hyperlipidemia, and SIADH. CT scan of the head shows age-related parenchymal volume loss and microvascular ischemic change. No acute intracranial abnormality. CT abdomen and pelvis shows interval development of a large left lower lobe mass. GI consult for suspected pancreatitis given abdominal pain and elevated lipase. Initial work-up in the ED shows elevated LFTs, normal sodium, elevated lipase in 1999. The patient was admitted with diagnosis below: -- Acute toxic metabolic encephalopathy/POA/ Metabolic encephalopathy most likely secondary to mass in the left lower lobe, pancreatitis and hypokalemia. Treat the underlying cause, neurochecks and supportive care CT head without contrast findings reviewed --Hypokalemia Potassium is supplemented. Closely monitor electrolytes --History of breast cancer status post surgery; -Mass lower lobe of left lung/possible metastatic lung cancer Patient has past medical history of breast cancer status postsurgery. Obtain medical records from [facility] consulted telemetry hematology oncologist Will also consult pulmonary for possible lung biopsy CT-guided versus bronchoscopic --Acute pancreatitis; Clear liquids IV fluids. IV Pepcid Pain medications. On clear liquid diet GI consulted , evaluation noted and appreciated --Acute transaminitis; GI following, otitis panel negative Closely monitor transaminases Abdominal ultrasound if needed GI recommended MRI abdomen which is pending -Hyponatremia; Normal saline, closely monitor electrolytes, supportive care -- Hypertension; moderate control Continue current antihypertensives As needed medications --T2DM (type 2 diabetes mellitus) Accu-Cheks sliding scale coverage, ADA diet Insulin as needed --Full CODE STATUS Hospital course: 11/12/2021. MRI / MRCP pending to evaluate for biliary ductal obstruction as well as any signs of metastatic disease in the liver from recently diagnosed lung mass. Continue supportive care and n.p.o. status. We will consult pulmonary for further evaluation for possible bronchoscopy. Follow-up serial lipase 11/13/2021. Patient for MRI brain today to assess for brain mets. Continue to monitor LFTs and INR. Supportive care and management for sepsis and electrolyte abnormalities per primary team. Patient planned for bronch on Thursday with pulm for lung mass bx. Pulmonary and GI following. Family at the bedside and discussed plan of care in detail. 11/14/2021. MRI brain was negative. Patient to have lung biopsy completed tomor row if INR less than 2. N.p.o. after midnight. Family reportedly declined EGD. History Interval history: No new issues overnight Hospitalist Physical - Constitutional Vitals: Temp Pulse Resp BP Pulse Ox 97.9 F 92 H 14 144/64 95 11/14/21 07:26 11/14/21 07:26 11/14/21 04:00 11/14/21 07:26 11/14/21 07:26 General appearance: Present: well-nourished, cachectic, other (Chronically ill looking) - EENT Eyes: Present: PERRL, EOM intact ENT: hearing intact, clear oral mucosa, dentition normal - Neck Neck: Present: supple, normal ROM - Respiratory Respiratory effort: normal Respiratory: bilateral: CTA - Cardiovascular Rhythm: regular Heart Sounds: Present: S1 & S2. Absent: gallop, rub - Extremities Extremities: no ischemia, No edema, Full ROM - Abdominal General gastrointestinal: soft, non-tender, non-distended, normal bowel sounds - Integumentary Integumentary: Present: clear, warm, dry - Neurologic Neurologic: CNII-XII intact, moves all extremities HEART Score - HEART Score Troponin: Troponin T 0.018 ng/mL (0.00-0.029) 11/10/21 21:10 Results - Labs CBC & Chem 7: 11/13/21 23:29 11/13/21 23:29 Labs: Laboratory Last Values WBC 8.9 K/mm3 (4.5-11.0) 11/13/21 23: RBC 2.52 M/mm3 (3.65-5.03) L 11/13/21 23:29 Hgb 8.0 gm/dl (10.1-14.3) L 11/13/21 23: Hct 23.2 % (30.3-42.9) L 11/13/21 23:29 MCV 92 fl (79-97) 11/13/21 23:29 MCH 32 pg (28-32) 11/13/21 23: MCHC 34 % (30-34) 11/13/21 23: RDW 16.4 % (13.2-15.2) H 11/13/21 23:29 Plt Count 155 K/mm3 (140-440) 11/13/21 23:29 Lymph % (Auto) Not Reportable 11/12/21 05:10 [place] % (Auto) Not Reportable 11/12/21 05:10 Eos % (Auto) Not Reportable 11/12/21 05:10 Baso % (Auto) Not Reportable 11/12/21 05:10 Lymph # (Auto) Not Reportable 11/12/21 05:10 [place] # (Auto) Not Reportable 11/12/21 05:10 Eos # (Auto) Not Reportable 11/12/21 05:10 Baso # (Auto) Not Reportable 11/12/21 05:10 Add Manual Diff Complete 11/12/21 05:10 Total Counted 100 11/12/21 05:10 Seg Neuts % (Manual) 94.0 % (40.0-70.0) H 11/12/21 05:10 Band Neutrophils % 3.0 % 11/12/21 05:10 Lymphocytes % (Manual) 1.0 % (13.4-35.0) L 11/12/21 05:10 Reactive Lymphs % (Man) 0 % 11/12/21 05:10 Monocytes % (Manual) 2.0 % (0.0-7.3) 11/12/21 05:10 Eosinophils % (Manual) 0 % (0.0-4.3) 11/12/21 05:10 Basophils % (Manual) 0 % (0.0-1.8) 11/12/21 05:10 Metamyelocytes % 0 % 11/12/21 05:10 Myelocytes % 0 % 11/12/21 05:10 Promyelocytes % 0 % 11/12/21 05:10 Blast Cells % 0 % 11/12/21 05:10 Nucleated RBC % 1.0 % (0.0-0.9) H 11/12/21 05:10 Seg Neutrophils # Not Reportable 11/12/21 05:10 Seg Neutrophils # Man 7.8 K/mm3 (1.8-7.7) H 11/12/21 05:10 Band Neutrophils # 0.2 K/mm3 11/12/21 05:10 Lymphocytes # (Manual) 0.1 K/mm3 (1.2-5.4) L 11/12/21 05:10 Abs React Lymphs (Man) 0.0 K/mm3 11/12/21 05:10 Monocytes # (Manual) 0.2 K/mm3 (0.0-0.8) 11/12/21 05:10 Eosinophils # (Manual) 0.0 K/mm3 (0.0-0.4) 11/12/21 05:10 Basophils # (Manual) 0.0 K/mm3 (0.0-0.1) 11/12/21 05:10 Metamyelocytes # 0.0 K/mm3 11/12/21 05:10 Myelocytes # 0.0 K/mm3 11/12/21 05:10 Promyelocytes # 0.0 K/mm3 11/12/21 05:10 Blast Cells # 0.0 K/mm3 11/12/21 05:10 WBC Morphology Not Reportable 11/12/21 05:10 Hypersegmented Neuts Not Reportable 11/12/21 05:10 Hyposegmented Neuts Not Reportable 11/12/21 05:10 Hypogranular Neuts Not Reportable 11/12/21 05:10 Smudge Cells Not Reportable 11/12/21 05:10 Toxic Granulation Not Reportable 11/12/21 05:10 Toxic Vacuolation Not Reportable 11/12/21 05:10 Dohle Bodies Not Reportable 11/12/21 05:10 Pelger-Huet Anomaly Not Reportable 11/12/21 05:10 Brenda Rods Not Reportable 11/12/21 05:10 Platelet Estimate Consistent w auto 11/12/21 05:10 Clumped Platelets Not Reportable 11/12/21 05:10 Plt Clumps, EDTA Not Reportable 11/12/21 05:10 Large Platelets Not Reportable 11/12/21 05:10 Giant Platelets Not Reportable 11/12/21 05:10 Platelet Satelliting Not Reportable 11/12/21 05:10 Plt Morphology Comment Not Reportable 11/12/21 05:10 RBC Morphology Not Reportable 11/12/21 05:10 Dimorphic RBCs Not Reportable 11/12/21 05:10 Polychromasia Not Reportable 11/12/21 05:10 Hypochromasia 2+ 11/12/21 05:10 Poikilocytosis Not Reportable 11/12/21 05:10 Anisocytosis Not Reportable 11/12/21 05:10 Microcytosis Not Reportable 11/12/21 05:10 Macrocytosis 1+ 11/12/21 05:10 Spherocytes Not Reportable 11/12/21 05:10 Pappenheimer Bodies Not Reportable 11/12/21 05:10 Sickle Cells Not Reportable 11/12/21 05:10 Target Cells 1+ 11/12/21 05:10 Tear Drop Cells Not Reportable 11/12/21 05:10 Ovalocytes Not Reportable 11/12/21 05:10 Helmet Cells Not Reportable 11/12/21 05:10 [place] Bodies Not Reportable 11/12/21 05:10 [place] Rings Not Reportable 11/12/21 05:10 [place] Cells Not Reportable 11/12/21 05:10 Bite Cells Not Reportable 11/12/21 05:10 Crenated Cell Not Reportable 11/12/21 05:10 Elliptocytes Not Reportable 11/12/21 05:10 Acanthocytes (Spur) Not Reportable 11/12/21 05:10 Rouleaux Not Reportable 11/12/21 05:10 Hemoglobin C Crystals Not Reportable 11/12/21 05:10 Schistocytes Few 11/12/21 05:10 Malaria parasites Not Reportable 11/12/21 05:10 Son Bodies Not Reportable 11/12/21 05:10 Hem Pathologist Commnt No 11/12/21 05:10 PT 25.5 Sec. (12.2-14.9) H 11/13/21 23:29 INR 1.97 (0.87-1.13) H 11/13/21 23:29 APTT 34.2 Sec. (24.2-36.6) 11/10/21 21:10 Sodium 146 mmol/L (137-145) H 11/13/21 23:29 Potassium 3.3 mmol/L (3.6-5.0) L 11/13/21 23:29 Chloride 106.2 mmol/L (98-107) 11/13/21 23:29 Carbon Dioxide 25 mmol/L (22-30) 11/13/21 23:29 Anion Gap 18 mmol/L 11/13/21 23:29 BUN 47 mg/dL (7-17) H 11/13/21 23:29 Creatinine 1.4 mg/dL (0.6-1.2) H 11/13/21 23:29 Estimated GFR 44 ml/min 11/13/21 23: BUN/Creatinine Ratio 34 % 11/13/21 23:29 Glucose 128 mg/dL (65-100) H 11/13/21 23:29 POC Glucose 143 mg/dL (70-105) H 11/14/21 05:14 Lactic Acid 1.90 mmol/L (0.7-2.0) 11/10/21 21:10 Calcium 8.2 mg/dL (8.4-10.2) L 11/13/21 23: Magnesium 1.90 mg/dL (1.7-2.3) 11/12/21 05:10 Total Bilirubin 3.80 mg/dL (0.1-1.2) H 11/13/21 23: Direct Bilirubin 2.2 mg/dL (0-0.2) H 11/11/21 08:04 Indirect Bilirubin 0.5 mg/dL 11/11/21 08:04 AST 104 units/L (5-40) H 11/13/21 23:29 ALT 73 units/L (7-56) H 11/13/21 23:29 Alkaline Phosphatase 296 units/L (35-129) H 11/13/21 23:29 Ammonia 18.0 umol/L (25-60) L 11/10/21 21:10 Troponin T 0.018 ng/mL (0.00-0.029) 11/10/21 21:10 Total Protein 4.4 g/dL (6.3-8.2) L 11/13/21 23: Albumin 2.6 g/dL (3.9-5) L 11/13/21 23:29 Albumin/Globulin Ratio 1.4 % 11/13/21 23: Lipase 897 units/L (13-60) H 11/13/21 23: Plasma/Serum Alcohol < 0.01 % (0-0.07) 11/10/21 21:10 Hepatitis A IgM Ab Non-reactive (NonReactive) 11/11/21 08:04 Hep Bs Antigen Non-reactive (Negative) 11/11/21 08:04 Hep B Core IgM Ab Non-reactive (NonReactive) 11/11/21 08:04 Hepatitis C Antibody Non-reactive (NonReactive) 11/11/21 08:04 Pulido/IV: Voiding Method Incontinent Active Medications - Current Medications Current Medications: Generic Name Dose Route Start Last Admin Trade Name Freq PRN Reason Stop Dose Admin Acetaminophen 650 mg 11/10/21 22:52 Acetaminophen 325 Mg Tab PO Q4H PRN Pain MILD(1-3)/Fever >100.5/HERRERA Dextrose 50 ml 11/10/21 22:52 Dextrose 50% In Water (25gm) 50 Ml Syringe IV Q30MIN PRN Hypoglycemia Protocol Diltiazem HCl 120 mg 11/11/21 10:00 11/13/21 11:24 Diltiazem Cd 120 Mg Cap PO 120 mg DAILY SIOBHAN Administration Famotidine 20 mg 11/11/21 10:00 11/13/21 11:24 Famotidine 20 Mg/2 Ml Inj IV 20 mg DAILY SIOBHAN Administration Hydralazine HCl 20 mg 11/11/21 14:00 11/14/21 06:30 Hydralazine 20 Mg/1 Ml Inj IV Not Given Q4HR SIOBHAN Hydrochlorothiazide 25 mg 11/11/21 10:00 11/13/21 11:24 Hydrochlorothiazide 25 Mg Tab PO 25 mg QDAY SIOBHAN Administration Sodium Chloride 1,000 mls @ 100 mls/hr 11/10/21 23:00 11/14/21 08:02 Nacl 0.9% 1000 Ml IV 100 mls/hr DIRECT SIOBHAN Administration Insulin Human Lispro 0 unit 11/11/21 00:00 11/14/21 06:34 Insulin Lispro 100 Unit/Ml SUB-Q Not Given Q6HR [facility] Protocol Losartan Potassium 50 mg 11/11/21 10:00 11/13/21 11:26 Losartan 50 Mg Tab PO 50 mg QDAY SIOBHAN Administration Metoprolol Succinate 25 mg 11/11/21 10:00 11/13/21 21:14 Metoprolol Succinate Xl 25 Mg Tab PO 25 mg BID SIOBHAN Administration Miscellaneous Medication 1 mg 11/11/21 10:00 Anastrozole [Arimidex] PO DAILY SIOBHAN Morphine Sulfate 2 mg 11/10/21 22:52 11/12/21 20:15 Morphine 2 Mg/1 Ml Inj IV 2 mg Q4H PRN Administration Pain, Moderate (4-6) Morphine Sulfate 4 mg 11/10/21 22:52 11/11/21 09:51 Morphine 4 Mg/1 Ml Inj IV 4 mg Q4H PRN Administration Pain , Severe (7-10) Ondansetron HCl 4 mg 11/10/21 22:52 11/11/21 09:51 Ondansetron 4 Mg/2 Ml Inj IV 4 mg Q8H PRN Administration Nausea And Vomiting Pantoprazole Sodium 40 mg 11/13/21 20:00 11/14/21 09:04 Pantoprazole 40 Mg Tab PO Not Given BIDAC SIOBHAN Sodium Chloride 10 ml 11/11/21 10:00 11/14/21 09:04 Sodium Chloride 0.9% 10 Ml Flush Syringe IV Not Given BID SIOBHAN Sodium Chloride 10 ml 11/10/21 22:52 Sodium Chloride 0.9% 10 Ml Flush Syringe IV PRN PRN LINE FLUSH Nutrition/Malnutrition Assess - Dietary Evaluation Nutrition/Malnutrition Findings: Nutrition Notes Start: 11/11/21 14:39 Freq: Status: Active Protocol: Document 11/13/21 17:39 CM (Rec: 11/13/21 17:47 CM [email or web address]) Co-Sign 11/13/21 17:39 WW Nutrition Notes Need for Assessment generated from: food service 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 Pt out of room to MRI at time of visit. Discussed wt loss and cachexia with pt's sons. Difficulty chewing/swallowing, abdominal pain, dysgeusia, dysosmia, and xerostomia concerns mentioned. Son's reported pt has not consumed but a few bites here and there x 3months. Recommend advancing to pureed diet when feasible with nutrition supplementation. Percent of energy/protein needs met: Clear Liquid Diet provides 590kcal/16g PRO q day Burn Absent Trauma Absent GI Symptoms Other Difficulty In Swallowing,Chewing Current % PO Negligible #1 Nutrition Diagnosis Malnutrition Diagnosis Progress(for reassessment Continues documentation) Nutrition Intervention Change Diet Order: Recommend advancing diet to pureed diet when medically feasible. Nutrition Support: Consider EN support to meet nutrient needs and prevent further wt loss Add Supplement/Snack (indicate name/kcal Glucerna /protein ) Provides kCal: 660 Provides Protein (gm) 30 Goal #1 Pt diet to advance past clear liquid diet within next 24-48 hours Goal #2 Wt maintenance and/or gain Follow-Up By: 11/15/21 Additional Comments Monitor %PO intake, wt status, nutrition-related labs
[2021-11-14] MEDS: METOPROLOL SUCCINATE XL 25 MG TAB PO SCH ×2 (10:00→21:35)
[2021-11-14] MEDS: LOSARTAN 50 MG TAB PO SCH (10:00)
[2021-11-14] MEDS: hydroCHLOROthiazide 25 MG TAB PO SCH (10:00)
[2021-11-14] MEDS: dilTIAZem CD 120 MG CAP PO SCH (10:00)
[2021-11-14] MEDS: MORPHINE 2 MG/1 ML INJ IV PRN ×2 (12:38→22:37)
[2021-11-14] MEDS: FAMOTIDINE 20 MG/2 ML INJ IV SCH (12:46)
--- NOTE | 2021-11-14 15:42 | Gastroenterology Progress Note ---
Assessment and Plan # Abdominal pain # Elevated LFTs - MRI showed mild hepatic steatosis, unremarkable biliary system, no evidence of gallstones or biliary ductal dilation, normal pancreas. - concerning for pancreatitis given abdominal pain and elevated lipase although imaging did not show signs of pancreatitis. - LFTs elevated but remains stable. rec: - recommend PPI bid. - Continue to monitor LFTs and INR. - Supportive care and management for sepsis and electrolyte abnormalities per primary team. - patient planned for bronch on Thursday with pulm for lung mass bx. - will see if we can do EGD at the same time as bronch tomorrow. - keep NPO MN - avoid hepatotoxins. - Patient Problems (1) Pancreatitis Current Visit: Yes Status: Acute Qualifiers: Chronicity: acute Pancreatitis type: unspecified pancreatitis type Acute pancreatitis complication: unspecified Qualified Code(s): K85.90 - Acute pancreatitis without necrosis or infection, unspecified Subjective Date of service: 11/14/21 Interval history: No clinical change. Tolerating clear liquids. Persistent upper abdominal pain. Objective - Constitutional Vitals: Temp Pulse Resp BP Pulse Ox 97.9 F 88 14 144/64 94 11/14/21 07:26 11/14/21 10:00 11/14/21 04:00 11/14/21 07:26 11/14/21 10:00 General appearance: no acute distress - EENT Eyes: EOM intact ENT: hearing decreased - Respiratory Respiratory effort: normal - Cardiovascular Rhythm: regular Heart Sounds: Present: S1 & S2 - Gastrointestinal General gastrointestinal: Present: soft, tender, distended - Integumentary Integumentary: Present: clear, warm - Psychiatric Psychiatric: appropriate mood/affect - Labs CBC & Chem 7: 11/13/21 23:29 11/13/21 23:29 Labs: Laboratory Results - last 24 hr 11/13/21 11/13/21 11/13/21 23:29 23:29 23:29 WBC 8.9 RBC 2.52 L Hgb 8.0 L Hct 23.2 L MCV 92 MCH 32 MCHC 34 RDW 16.4 H Plt Count 155 PT 25.5 H INR 1.97 H Sodium 146 H Potassium 3.3 L Chloride 106.2 Carbon Dioxide 25 Anion Gap 18 BUN 47 H Creatinine 1.4 H Estimated GFR 44 BUN/Creatinine Ratio 34 Glucose 128 H POC Glucose Calcium 8.2 L Total Bilirubin 3.80 H AST 104 H ALT 73 H Alkaline Phosphatase 296 H Total Protein 4.4 L Albumin 2.6 L Albumin/Globulin Ratio 1.4 Lipase 897 H 11/13/21 11/14/21 23:32 05:14 WBC RBC Hgb Hct MCV MCH MCHC RDW Plt Count PT INR Sodium Potassium Chloride Carbon Dioxide Anion Gap BUN Creatinine Estimated GFR BUN/Creatinine Ratio Glucose POC Glucose 136 H 143 H Calcium Total Bilirubin AST ALT Alkaline Phosphatase Total Protein Albumin Albumin/Globulin Ratio Lipase
--- NOTE | 2021-11-14 18:13 | Ultrasound Report ---
ULTRASOUND ABDOMEN, LIMITED (RIGHT UPPER QUADRANT), 11/14/2021 INDICATION: Elevated liver function. COMPARISON: CT of the abdomen and pelvis, 11/10/2021. FINDINGS: Pancreas: Visualized portion shows no significant abnormality. Liver: The liver is enlarged which is best demonstrated on CT of the abdomen and pelvis performed 10/18. On this study, the liver measures 18.5 cm in greatest transverse dimension. There is a single 1.0 cm echogenic lesion within the right hepatic lobe. Gallbladder: The gallbladder demonstrates no stones, wall thickening or sludge. Bile ducts: Common Bile Duct is normal in caliber measuring 6 mm. Free fluid: None. Additional Findings: None. IMPRESSION: 1. Hepatomegaly, best demonstrated on recent cross-sectional imaging. The contour configuration of th e liver on this previous study may suggest cirrhotic change. 2. Single 1 cm echogenic hepatic lesion. This is indeterminate by ultrasound but may represent a smal l hemangioma. Signer Name: Earlene Perez MD Signed: 11/14/2021 6:08 PM Workstation Name: [id number]
[2021-11-14 18:41] LABS: Albumin 2.7 g/dL (3.9-5); Basophils % (Auto) 0.2 % (0.0-1.8); Bilirubin,Direct 3.8 mg/dL (0-0.2); Eosinophils % (Auto) 0.1 % (0.0-4.3); Hemoglobin 8.2 gm/dl (10.1-14.3); Lymphocytes # (Auto) 1.6 K/mm3 (1.2-5.4); Mean Corpuscular HGB Conc 34 % (30-34); Mean Corpuscular Volume 92 fl (79-97); Monocytes # (Auto) 0.7 K/mm3 (0.0-0.8); Monocytes % (Auto) 6.2 % (0.0-7.3); Platelet Count 175 K/mm3 (140-440); Red Blood Count 2.62 M/mm3 (3.65-5.03); Red Cell Distribution Width 16.1 % (13.2-15.2)
[2021-11-14 18:47] LABS: INR 2.01 (0.87-1.13)
[2021-11-14 18:48] LABS: Partial Thromboplastin Time 41.1 Sec. (24.2-36.6)
[2021-11-14 19:30] LABS: Calcium 8.3 mg/dL (8.4-10.2)
[2021-11-15] MEDS: hydrALAZINE 20 MG/1 ML INJ IV SCH ×7 (02:00→21:19)
[2021-11-15] MEDS: SODIUM CHLORIDE 0.9% 1000 ML 1,000 ML IV SCH ×2 (05:20→08:54)
[2021-11-15] MEDS: INSULIN LISPRO 100 UNIT/ML SUB-Q SCH ×5 (06:24→17:19)
--- NOTE | 2021-11-15 07:25 | Event Note ---
Date: 11/15/21 Code med called patient's who has been on admission for acute metabolic encephalopathy, pancreatitis. Blood pressure acceptably transiently low. She had a bolus of IV fluid normal saline with significant improvement. We will continue to monitor vital signs closely.
[2021-11-15] MEDS: PANTOPRAZOLE 40 MG TAB PO SCH ×2 (08:52→16:35)
[2021-11-15] MEDS: METOPROLOL SUCCINATE XL 25 MG TAB PO SCH ×2 (09:03→21:16)
[2021-11-15] MEDS: LOSARTAN 50 MG TAB PO SCH (09:03)
[2021-11-15] MEDS: dilTIAZem CD 120 MG CAP PO SCH (09:03)
[2021-11-15] MEDS: hydroCHLOROthiazide 25 MG TAB PO SCH (09:03)
--- NOTE | 2021-11-15 09:37 | Hem/Onc Progress Note ---
Subjective Date of service: 11/15/21 Interval history: HEME/ONC progress note CPT 64366 Dx Lung mass 76 year old female with altered mental status and abdominal pain and distention Pmhx of breast cancer diagnosed in 2018 s/p mastectomy, hypertension, hyperlipidemia, and SIADH. Patient appears weak and cachectic, but denies decreased appetite or decreased p.o. intake. CT scan of the head shows age-related parenchymal volume loss and microvascular ischemic change. No acute intracranial abnormality. CT abdomen and pelvis shows interval development of a large left lower lobe mass. Oncology was consulted for evaluation of lung mass. GI following for suspected pancreatitis given abdominal pain and elevated lip ase. Abd MRI: mild hepatic steatosis, unremarkable biliary system, no evidence of gallstones or biliary ductal dilation, normal pancreas. Brain MRI: negative. Abd U/S: hepatomegaly, cirrhotic changes, lesion--possible hemangioma Hypotension overnight. DATA REVIEWED BELOW Retic 1.2% LDH 576 ASSESSMENT: Large left lower lobe mass Elevated liver enzymes and lipase, suspected pancreatitis Anemia likely secondary to malignancy Coagulopathy due to liver dysfunction/cirrhosis PLAN: Lung mass biopsy -Transfuse 2 units FFP prior to procedure -Transfuse 2 units FFP Q6H x 24Hrs for any bleeding -Transfuse 1 unit pRBC whenever HCT <23 No plans for inpatient anti-tumor therapy Outpatient follow up with established Oncologist Dr. Truong Witt Follow [facility] Case d/w Dr. Fabio Lua Laboratory Last Values WBC 10.5 K/mm3 (4.5-11.0) 11/14/21 17:10 Hgb 8.2 gm/dl (10.1-14.3) L 11/14/21 17:10 Hct 24.0 % (30.3-42.9) L 11/14/21 17:10 MCV 92 fl (79-97) 11/14/21 17:10 Plt Count 175 K/mm3 (140-440) 11/14/21 17:10 Seg Neutrophils % 78.5 % (40.0-70.0) H 11/14/21 17:10 Seg Neuts % (Manual) 94.0 % (40.0-70.0) H 11/12/21 05:10 Lymphocytes % (Manual) 1.0 % (13.4-35.0) L 11/12/21 05:10 Nucleated RBC % 1.0 % (0.0-0.9) H 11/12/21 05:10 Seg Neutrophils # 8.3 K/mm3 (1.8-7.7) H 11/14/21 17:10 Seg Neutrophils # Man 7.8 K/mm3 (1.8-7.7) H 11/12/21 05:10 Lymphocytes # (Manual) 0.1 K/mm3 (1.2-5.4) L 11/12/21 05:10 PT 25.9 Sec. (12.2-14.9) H 11/14/21 17:10 INR 2.01 (0.87-1.13) H 11/14/21 17:10 APTT 41.1 Sec. (24.2-36.6) H 11/14/21 17:10 Creatinine 1.2 mg/dL (0.6-1.2) 11/14/21 17:10 Iron 98 ug/dL (37-170) 11/14/21 17:10 TIBC 107 mcg/dL (250-450) L 11/14/21 17:10 Ferritin 1878.0 ng/mL (10.0-200.0) H 11/14/21 17:10 Total Bilirubin 4.30 mg/dL (0.1-1.2) H 11/14/21 17:10 Direct Bilirubin 3.8 mg/dL (0-0.2) H 11/14/21 17:10 Indirect Bilirubin 0.5 mg/dL 11/14/21 17:10 AST 119 units/L (5-40) H 11/14/21 17:10 ALT 82 units/L (7-56) H 11/14/21 17:10 Alkaline Phosphatase 340 units/L (35-129) H 11/14/21 17:10 Lactate Dehydrogenase 576 units/L (91-180) H 11/14/21 17:10 Total Protein 4.5 g/dL (6.3-8.2) L 11/14/21 17:10 Albumin 2.7 g/dL (3.9-5) L 11/14/21 17:10 Albumin/Globulin Ratio 1.5 % 11/14/21 17:10 Lipase 897 units/L (13-60) H 11/13/21 23:29 Hepatitis A IgM Ab Non-reactive (NonReactive) 11/11/21 08:04 Hep Bs Antigen Non-reactive (Negative) 11/11/21 08:04 Hep B Core IgM Ab Non-reactive (NonReactive) 11/11/21 08:04 Hepatitis C Antibody Non-reactive (NonReactive) 11/11/21 08:04 Objective - Constitutional Vitals: Last Vital Signs Temp 97.5 F L 11/15/21 07:19 Pulse 101 H 11/15/21 07:19 Resp 20 11/15/21 07:19 BP 140/61 11/15/21 07:19 Pulse Ox 100 11/15/21 07:19 - Labs Lab Results: Laboratory Results - last 24 hr 11/14/21 11/14/21 11/14/21 11:17 17:06 17:10 WBC 10.5 RBC 2.62 L Hgb 8.2 L Hct 24.0 L MCV 92 MCH 31 MCHC 34 RDW 16.1 H Plt Count 175 Lymph % (Auto) 15.0 [place] % (Auto) 6.2 Eos % (Auto) 0.1 Baso % (Auto) 0.2 Lymph # (Auto) 1.6 [place] # (Auto) 0.7 Eos # (Auto) 0.0 Baso # (Auto) 0.0 Seg Neutrophils % 78.5 H Seg Neutrophils # 8.3 H Percent Retic 1.18 PT INR APTT Sodium Potassium Chloride Carbon Dioxide Anion Gap BUN Creatinine Estimated GFR BUN/Creatinine Ratio Glucose POC Glucose 129 H 112 H Calcium Iron TIBC Ferritin Total Bilirubin Direct Bilirubin Indirect Bilirubin AST ALT Alkaline Phosphatase Lactate Dehydrogenase Total Protein Albumin Albumin/Globulin Ratio 11/14/21 11/14/21 11/14/21 17:10 17:10 17:10 WBC RBC Hgb Hct MCV MCH MCHC RDW Plt Count Lymph % (Auto) [place] % (Auto) Eos % (Auto) Baso % (Auto) Lymph # (Auto) [place] # (Auto) Eos # (Auto) Baso # (Auto) Seg Neutrophils % Seg Neutrophils # Percent Retic PT 25.9 H INR 2.01 H APTT 41.1 H Sodium 147 H Potassium 3.0 L Chloride 107.5 H Carbon Dioxide 25 Anion Gap 18 BUN 48 H Creatinine 1.2 Estimated GFR 53 BUN/Creatinine Ratio 40 Glucose 122 H POC Glucose Calcium 8.3 L Iron 98 TIBC 107 L Ferritin 1878.0 H Total Bilirubin Direct Bilirubin Indirect Bilirubin AST ALT Alkaline Phosphatase Lactate Dehydrogenase 576 H Total Protein Albumin Albumin/Globulin Ratio 11/14/21 11/14/21 11/15/21 17:10 23:07 05:12 WBC RBC Hgb Hct MCV MCH MCHC RDW Plt Count Lymph % (Auto) [place] % (Auto) Eos % (Auto) Baso % (Auto) Lymph # (Auto) [place] # (Auto) Eos # (Auto) Baso # (Auto) Seg Neutrophils % Seg Neutrophils # Percent Retic PT INR APTT Sodium Potassium Chloride Carbon Dioxide Anion Gap BUN Creatinine Estimated GFR BUN/Creatinine Ratio Glucose POC Glucose 145 H 135 H Calcium Iron TIBC Ferritin Total Bilirubin 4.30 H Direct Bilirubin 3.8 H Indirect Bilirubin 0.5 AST 119 H ALT 82 H Alkaline Phosphatase 340 H Lactate Dehydrogenase Total Protein 4.5 L Albumin 2.7 L Albumin/Globulin Ratio 1.5 Medications & Allergies - Medications Allergies/Adverse Reactions: Allergies aspirin Allergy (Verified 11/14/21 17:08) Hives/upset stomach Home Medications: Home Medications Medication Instructions Recorded Confirmed Last Taken Type Anastrozole [Arimidex] 1 mg PO DAILY 09/12/21 11/14/21 09/10/21 History Omeprazole 20 mg PO QDAY 11/14/21 11/14/21 Unknown History Oxycodone HCl/Acetaminophen 1 tab PO Q8H PRN 11/14/21 11/14/21 Unknown History [Oxycodone-Acetaminophen 10-325] Phosphorus #1 [K-Phos Neutral] 1 tab PO BID 11/14/21 11/14/21 Unknown History Sodium Chloride 1 tab PO TID 11/14/21 11/14/21 Unknown History Active Medications: Generic Name Dose Route Start Last Admin Trade Name Freq PRN Reason Stop Dose Admin Acetaminophen 650 mg 11/10/21 22:52 Acetaminophen 325 Mg Tab PO Q4H PRN Pain MILD(1-3)/Fever >100.5/HERRERA Dextrose 50 ml 11/10/21 22:52 Dextrose 50% In Water (25gm) 50 Ml Syringe IV Q30MIN PRN Hypoglycemia Protocol Diltiazem HCl 120 mg 11/11/21 10:00 11/15/21 09:03 Diltiazem Cd 120 Mg Cap PO Not Given DAILY SIOBHAN Famotidine 20 mg 11/11/21 10:00 11/14/21 12:46 Famotidine 20 Mg/2 Ml Inj IV 20 mg DAILY SIOBHAN Administration Hydralazine HCl 20 mg 11/11/21 14:00 11/15/21 06:25 Hydralazine 20 Mg/1 Ml Inj IV Not Given Q4HR [facility] Hydrochlorothiazide 25 mg 11/11/21 10:00 11/15/21 09:03 Hydrochlorothiazide 25 Mg Tab PO Not Given QDAY [facility] Sodium Chloride 1,000 mls @ 100 mls/hr 11/10/21 23:00 11/15/21 08:54 Nacl 0.9% 1000 Ml IV 100 mls/hr DIRECT [facility] Administration Insulin Human Lispro 0 unit 11/11/21 00:00 11/15/21 06:24 Insulin Lispro 100 Unit/Ml SUB-Q Not Given Q6HR [facility] Protocol Losartan Potassium 50 mg 11/11/21 10:00 11/15/21 09:03 Losartan 50 Mg Tab PO Not Given QDAY [facility] Metoprolol Succinate 25 mg 11/11/21 10:00 11/15/21 09:03 Metoprolol Succinate Xl 25 Mg Tab PO Not Given BID [facility] Miscellaneous Medication 1 mg 11/11/21 10:00 Anastrozole [Arimidex] PO DAILY [facility] Morphine Sulfate 2 mg 11/10/21 22:52 11/14/21 22:37 Morphine 2 Mg/1 Ml Inj IV 2 mg Q4H PRN Administration Pain, Moderate (4-6) Morphine Sulfate 4 mg 11/10/21 22:52 11/11/21 09:51 Morphine 4 Mg/1 Ml Inj IV 4 mg Q4H PRN Administration Pain , Severe (7-10) Ondansetron HCl 4 mg 11/10/21 22:52 11/11/21 09:51 Ondansetron 4 Mg/2 Ml Inj IV 4 mg Q8H PRN Administration Nausea And Vomiting Pantoprazole Sodium 40 mg 11/13/21 20:00 11/15/21 08:52 Pantoprazole 40 Mg Tab [facility] Phytonadione 10 mg 11/15/21 08:46 Phytonadione 10 Mg/1 Ml (Adult Only)*Injection* SUB-Q 11/15/21 08:47 ONCE ONE Sodium Chloride 10 ml 11/11/21 10:00 11/14/21 21:36 Sodium Chloride 0.9% 10 Ml Flush Syringe IV 10 ml BID SIOBHAN Administration Sodium Chloride 10 ml 11/10/21 22:52 Sodium Chloride 0.9% 10 Ml Flush Syringe IV PRN PRN LINE FLUSH
[2021-11-15] MEDS ORDERED: PHYTONADIONE 10 MG/1 ML (ADULT ONLY)*INJECTION SUB-Q SCH (10:00)
--- NOTE | 2021-11-15 10:05 | Gastroenterology Progress Note ---
<HANSA SAL - Last Filed: 11/15/21 10:05> Assessment and Plan 1. Abdominal pain 2. Elevated LFTs - MRI showed mild hepatic steatosis, unremarkable biliary system, no evidence of gallstones or biliary ductal dilation, normal pancreas. - concerning for pancreatitis given abdominal pain and elevated lipase although imaging did not show signs of pancreatitis. - LFTs elevated but remain relatively stable. - INR 2.01 rec: - recommend PPI bid - Continue to monitor LFTs and INR - Supportive care and management for sepsis and electrolyte abnormalities per primary team - patient planned for bronch on Thursday with pulm for lung mass bx - EGD cancelled today d/t INR - avoid hepatotoxins Subjective Date of service: 11/15/21 Interval history: Pt seen and examined. Family present at bedside. Pt does not interact with me. Per family, pt will c/o some abd pain but not as bad as it had been. They state she has not been eating. Deny N/V or diarrhea. Objective - Constitutional Vitals: Temp Pulse Resp BP Pulse Ox 97.5 F L 101 H 20 140/61 100 11/15/21 07:19 11/15/21 07:19 11/15/21 07:19 11/15/21 07:19 11/15/21 07:19 General appearance: no acute distress - Gastrointestinal General gastrointestinal: Present: tender - Labs CBC & Chem 7: 11/14/21 17:10 11/14/21 17:10 Labs: Laboratory Results - last 24 hr 11/14/21 11/14/21 11/14/21 11:17 17:06 17:10 WBC 10.5 RBC 2.62 L Hgb 8.2 L Hct 24.0 L MCV 92 MCH 31 MCHC 34 RDW 16.1 H Plt Count 175 Lymph % (Auto) 15.0 [place] % (Auto) 6.2 Eos % (Auto) 0.1 Baso % (Auto) 0.2 Lymph # (Auto) 1.6 [place] # (Auto) 0.7 Eos # (Auto) 0.0 Baso # (Auto) 0.0 Seg Neutrophils % 78.5 H Seg Neutrophils # 8.3 H Percent Retic 1.18 PT INR APTT Sodium Potassium Chloride Carbon Dioxide Anion Gap BUN Creatinine Estimated GFR BUN/Creatinine Ratio Glucose POC Glucose 129 H 112 H Calcium Iron TIBC Ferritin Total Bilirubin Direct Bilirubin Indirect Bilirubin AST ALT Alkaline Phosphatase Lactate Dehydrogenase Total Protein Albumin Albumin/Globulin Ratio 11/14/21 11/14/21 11/14/21 17:10 17:10 17:10 WBC RBC Hgb Hct MCV MCH MCHC RDW Plt Count Lymph % (Auto) [place] % (Auto) Eos % (Auto) Baso % (Auto) Lymph # (Auto) [place] # (Auto) Eos # (Auto) Baso # (Auto) Seg Neutrophils % Seg Neutrophils # Percent Retic PT 25.9 H INR 2.01 H APTT 41.1 H Sodium 147 H Potassium 3.0 L Chloride 107.5 H Carbon Dioxide 25 Anion Gap 18 BUN 48 H Creatinine 1.2 Estimated GFR 53 BUN/Creatinine Ratio 40 Glucose 122 H POC Glucose Calcium 8.3 L Iron 98 TIBC 107 L Ferritin 1878.0 H Total Bilirubin Direct Bilirubin Indirect Bilirubin AST ALT Alkaline Phosphatase Lactate Dehydrogenase 576 H Total Protein Albumin Albumin/Globulin Ratio 11/14/21 11/14/21 11/15/21 17:10 23:07 05:12 WBC RBC Hgb Hct MCV MCH MCHC RDW Plt Count Lymph % (Auto) [place] % (Auto) Eos % (Auto) Baso % (Auto) Lymph # (Auto) [place] # (Auto) Eos # (Auto) Baso # (Auto) Seg Neutrophils % Seg Neutrophils # Percent Retic PT INR APTT Sodium Potassium Chloride Carbon Dioxide Anion Gap BUN Creatinine Estimated GFR BUN/Creatinine Ratio Glucose POC Glucose 145 H 135 H Calcium Iron TIBC Ferritin Total Bilirubin 4.30 H Direct Bilirubin 3.8 H Indirect Bilirubin 0.5 AST 119 H ALT 82 H Alkaline Phosphatase 340 H Lactate Dehydrogenase Total Protein 4.5 L Albumin 2.7 L Albumin/Globulin Ratio 1.5 <TWAN COWART - Last Filed: 11/15/21 12:49> Assessment and Plan INR 2 is not contraindication for diagnostic EGD, spoke with patient and son, ok to proceed with planned EGD today Objective - Constitutional Vitals: Temp Pulse Resp BP Pulse Ox 98.3 F 108 H 22 103/69 95 11/15/21 11:24 11/15/21 11:24 11/15/21 11:24 11/15/21 11:24 11/15/21 12:33 - Labs CBC & Chem 7: 11/14/21 17:10 11/14/21 17:10 Labs: Laboratory Results - last 24 hr 11/14/21 11/14/21 11/14/21 11:17 17:06 17:10 WBC 10.5 RBC 2.62 L Hgb 8.2 L Hct 24.0 L MCV 92 MCH 31 MCHC 34 RDW 16.1 H Plt Count 175 Lymph % (Auto) 15.0 [place] % (Auto) 6.2 Eos % (Auto) 0.1 Baso % (Auto) 0.2 Lymph # (Auto) 1.6 [place] # (Auto) 0.7 Eos # (Auto) 0.0 Baso # (Auto) 0.0 Seg Neutrophils % 78.5 H Seg Neutrophils # 8.3 H Percent Retic 1.18 PT INR APTT Sodium Potassium Chloride Carbon Dioxide Anion Gap BUN Creatinine Estimated GFR BUN/Creatinine Ratio Glucose POC Glucose 129 H 112 H Calcium Iron TIBC Ferritin Total Bilirubin Direct Bilirubin Indirect Bilirubin AST ALT Alkaline Phosphatase Lactate Dehydrogenase Total Protein Albumin Albumin/Globulin Ratio 11/14/21 11/14/21 11/14/21 17:10 17:10 17:10 WBC RBC Hgb Hct MCV MCH MCHC RDW Plt Count Lymph % (Auto) [place] % (Auto) Eos % (Auto) Baso % (Auto) Lymph # (Auto) [place] # (Auto) Eos # (Auto) Baso # (Auto) Seg Neutrophils % Seg Neutrophils # Percent Retic PT 25.9 H INR 2.01 H APTT 41.1 H Sodium 147 H Potassium 3.0 L Chloride 107.5 H Carbon Dioxide 25 Anion Gap 18 BUN 48 H Creatinine 1.2 Estimated GFR 53 BUN/Creatinine Ratio 40 Glucose 122 H POC Glucose Calcium 8.3 L Iron 98 TIBC 107 L Ferritin 1878.0 H Total Bilirubin Direct Bilirubin Indirect Bilirubin AST ALT Alkaline Phosphatase Lactate Dehydrogenase 576 H Total Protein Albumin Albumin/Globulin Ratio 11/14/21 11/14/21 11/15/21 17:10 23:07 05:12 WBC RBC Hgb Hct MCV MCH MCHC RDW Plt Count Lymph % (Auto) [place] % (Auto) Eos % (Auto) Baso % (Auto) Lymph # (Auto) [place] # (Auto) Eos # (Auto) Baso # (Auto) Seg Neutrophils % Seg Neutrophils # Percent Retic PT INR APTT Sodium Potassium Chloride Carbon Dioxide Anion Gap BUN Creatinine Estimated GFR BUN/Creatinine Ratio Glucose POC Glucose 145 H 135 H Calcium Iron TIBC Ferritin Total Bilirubin 4.30 H Direct Bilirubin 3.8 H Indirect Bilirubin 0.5 AST 119 H ALT 82 H Alkaline Phosphatase 340 H Lactate Dehydrogenase Total Protein 4.5 L Albumin 2.7 L Albumin/Globulin Ratio 1.5
--- NOTE | 2021-11-15 10:50 | Progress Note ---
Assessment and Plan Assessment and plan: This is a 76 year old female who presented to [facility] ED via EMS for altered mental status and abdominal pain and distention. Family states that they called EMS as pt was not acting herself. Past medical history of breast cancer s/p mastectomy, hypertension, hyperlipidemia, and SIADH. CT scan of the head shows age-related parenchymal volume loss and microvascular ischemic change. No acute intracranial abnormality. CT abdomen and pelvis shows interval development of a large left lower lobe mass. GI consult for suspected pancreatitis given abdominal pain and elevated lipase. Initial work-up in the ED shows elevated LFTs, normal sodium, elevated lipase in 1999. The patient was admitted with diagnosis below: -- Acute toxic metabolic encephalopathy/POA/ Metabolic encephalopathy most likely secondary to mass in the left lower lobe, pancreatitis and hypokalemia. Treat the underlying cause, neurochecks and supportive care CT head without contrast findings reviewed --Hypokalemia Potassium is supplemented. Closely monitor electrolytes --Coagulopathy --History of breast cancer status post surgery; -Mass lower lobe of left lung/possible metastatic lung cancer Patient has past medical history of breast cancer status postsurgery. Obtain medical records from [facility] consulted telemetry hematology oncologist Will also consult pulmonary for possible lung biopsy CT-guided versus bronchoscopic --Acute pancreatitis; Clear liquids IV fluids. IV Pepcid Pain medications. On clear liquid diet GI consulted , evaluation noted and appreciated --Acute transaminitis; GI following, otitis panel negative Closely monitor transaminases Abdominal ultrasound if needed GI recommended MRI abdomen which is pending -Hyponatremia; Normal saline, closely monitor electrolytes, supportive care -- Hypertension; moderate control Continue current antihypertensives As needed medications --T2DM (type 2 diabetes mellitus) Accu-Cheks sliding scale coverage, ADA diet Insulin as needed --Full CODE STATUS Hospital course: 11/12/2021. MRI / MRCP pending to evaluate for biliary ductal obstruction as well as any signs of metastatic disease in the liver from recently diagnosed lung mass. Continue supportive care and n.p.o. status. We will consult pulmonary for further evaluation for possible bronchoscopy. Follow-up serial lipase 11/13/2021. Patient for MRI brain today to assess for brain mets. Continue to monitor LFTs and INR. Supportive care and management for sepsis and electrolyte abnormalities per primary team. Patient planned for bronch on Thursday with pulm for lung mass bx. Pulmonary and GI following. Family at the bedside and discussed plan of care in detail. 11/14/2021. MRI brain was negative. Patient to have lung biopsy completed tomorrow if INR less than 2. N.p.o. after midnight. Family reportedly declined EGD. 11/15/2021. Patient unable to undergo bronchoscopy or EGD given the elevated INR. We will give vitamin K 10 mg x 1. Hematology reports coagulopathy likely due to liver dysfunction/cirrhosis. Patient to have 2 units FFP prior to hopefully procedures on Thursday. History Interval history: No new issues overnight Hospitalist Physical - Constitutional Vitals: Temp Pulse Resp BP Pulse Ox 97.5 F L 101 H 20 140/61 100 11/15/21 07:19 11/15/21 07:19 11/15/21 07:19 11/15/21 07:19 11/15/21 07:19 General appearance: Present: well-nourished, cachectic, other (Chronically ill looking) - EENT Eyes: Present: PERRL, EOM intact ENT: hearing intact, clear oral mucosa, dentition normal - Neck Neck: Present: supple, normal ROM - Respiratory Respiratory effort: normal Respiratory: bilateral: CTA - Cardiovascular Rhythm: regular Heart Sounds: Present: S1 & S2. Absent: gallop, rub - Extremities Extremities: no ischemia, No edema, Full ROM - Abdominal General gastrointestinal: soft, non-tender, non-distended, normal bowel sounds - Integumentary Integumentary: Present: clear, warm, dry - Neurologic Neurologic: CNII-XII intact, moves all extremities HEART Score - HEART Score Troponin: Troponin T 0.018 ng/mL (0.00-0.029) 11/10/21 21:10 Results - Labs CBC & Chem 7: 11/14/21 17:10 11/14/21 17:10 Labs: Laboratory Last Values WBC 10.5 K/mm3 (4.5-11.0) 11/14/21 17:10 RBC 2.62 M/mm3 (3.65-5.03) L 11/14/21 17:10 Hgb 8.2 gm/dl (10.1-14.3) L 11/14/21 17:10 Hct 24.0 % (30.3-42.9) L 11/14/21 17:10 MCV 92 fl (79-97) 11/14/21 17:10 MCH 31 pg (28-32) 11/14/21 17:10 MCHC 34 % (30-34) 11/14/21 17:10 RDW 16.1 % (13.2-15.2) H 11/14/21 17:10 Plt Count 175 K/mm3 (140-440) 11/14/21 17:10 Lymph % (Auto) 15.0 % (13.4-35.0) 11/14/21 17:10 Kimball % (Auto) 6.2 % (0.0-7.3) 11/14/21 17:10 Eos % (Auto) 0.1 % (0.0-4.3) 11/14/21 17:10 Baso % (Auto) 0.2 % (0.0-1.8) 11/14/21 17:10 Lymph # (Auto) 1.6 K/mm3 (1.2-5.4) 11/14/21 17:10 Kimball # (Auto) 0.7 K/mm3 (0.0-0.8) 11/14/21 17:10 Eos # (Auto) 0.0 K/mm3 (0.0-0.4) 11/14/21 17:10 Baso # (Auto) 0.0 K/mm3 (0.0-0.1) 11/14/21 17:10 Add Manual Diff Complete 11/12/21 05:10 Total Counted 100 11/12/21 05:10 Seg Neutrophils % 78.5 % (40.0-70.0) H 11/14/21 17:10 Seg Neuts % (Manual) 94.0 % (40.0-70.0) H 11/12/21 05:10 Band Neutrophils % 3.0 % 11/12/21 05:10 Lymphocytes % (Manual) 1.0 % (13.4-35.0) L 11/12/21 05:10 Reactive Lymphs % (Man) 0 % 11/12/21 05:10 Monocytes % (Manual) 2.0 % (0.0-7.3) 11/12/21 05:10 Eosinophils % (Manual) 0 % (0.0-4.3) 11/12/21 05:10 Basophils % (Manual) 0 % (0.0-1.8) 11/12/21 05:10 Metamyelocytes % 0 % 11/12/21 05:10 Myelocytes % 0 % 11/12/21 05:10 Promyelocytes % 0 % 11/12/21 05:10 Blast Cells % 0 % 11/12/21 05:10 Nucleated RBC % 1.0 % (0.0-0.9) H 11/12/21 05:10 Seg Neutrophils # 8.3 K/mm3 (1.8-7.7) H 11/14/21 17:10 Seg Neutrophils # Man 7.8 K/mm3 (1.8-7.7) H 11/12/21 05:10 Band Neutrophils # 0.2 K/mm3 11/12/21 05:10 Lymphocytes # (Manual) 0.1 K/mm3 (1.2-5.4) L 11/12/21 05:10 Abs React Lymphs (Man) 0.0 K/mm3 11/12/21 05:10 Monocytes # (Manual) 0.2 K/mm3 (0.0-0.8) 11/12/21 05:10 Eosinophils # (Manual) 0.0 K/mm3 (0.0-0.4) 11/12/21 05:10 Basophils # (Manual) 0.0 K/mm3 (0.0-0.1) 11/12/21 05:10 Metamyelocytes # 0.0 K/mm3 11/12/21 05:10 Myelocytes # 0.0 K/mm3 11/12/21 05:10 Promyelocytes # 0.0 K/mm3 11/12/21 05:10 Blast Cells # 0.0 K/mm3 11/12/21 05:10 WBC Morphology Not Reportable 11/12/21 05:10 Hypersegmented Neuts Not Reportable 11/12/21 05:10 Hyposegmented Neuts Not Reportable 11/12/21 05:10 Hypogranular Neuts Not Reportable 11/12/21 05:10 Smudge Cells Not Reportable 11/12/21 05:10 Toxic Granulation Not Reportable 11/12/21 05:10 Toxic Vacuolation Not Reportable 11/12/21 05:10 Dohle Bodies Not Reportable 11/12/21 05:10 Pelger-Huet Anomaly Not Reportable 11/12/21 05:10 Brenda Rods Not Reportable 11/12/21 05:10 Platelet Estimate Consistent w auto 11/12/21 05:10 Clumped Platelets Not Reportable 11/12/21 05:10 Plt Clumps, EDTA Not Reportable 11/12/21 05:10 Large Platelets Not Reportable 11/12/21 05:10 Giant Platelets Not Reportable 11/12/21 05:10 Platelet Satelliting Not Reportable 11/12/21 05:10 Plt Morphology Comment Not Reportable 11/12/21 05:10 RBC Morphology Not Reportable 11/12/21 05:10 Dimorphic RBCs Not Reportable 11/12/21 05:10 Polychromasia Not Reportable 11/12/21 05:10 Hypochromasia 2+ 11/12/21 05:10 Poikilocytosis Not Reportable 11/12/21 05:10 Anisocytosis Not Reportable 11/12/21 05:10 Microcytosis Not Reportable 11/12/21 05:10 Macrocytosis 1+ 11/12/21 05:10 Spherocytes Not Reportable 11/12/21 05:10 Pappenheimer Bodies Not Reportable 11/12/21 05:10 Sickle Cells Not Reportable 11/12/21 05:10 Target Cells 1+ 11/12/21 05:10 Tear Drop Cells Not Reportable 11/12/21 05:10 Ovalocytes Not Reportable 11/12/21 05:10 Helmet Cells Not Reportable 11/12/21 05:10 Fier[place] Bodies Not Reportable 11/12/21 05:10 Rarden Rings Not Reportable 11/12/21 05:10 Aubrie Cells Not Reportable 11/12/21 05:10 Bite Cells Not Reportable 11/12/21 05:10 Crenated Cell Not Reportable 11/12/21 05:10 Elliptocytes Not Reportable 11/12/21 05:10 Acanthocytes (Spur) Not Reportable 11/12/21 05:10 Rouleaux Not Reportable 11/12/21 05:10 Hemoglobin C Crystals Not Reportable 11/12/21 05:10 Schistocytes Few 11/12/21 05:10 Malaria parasites Not Reportable 11/12/21 05:10 Percent Retic 1.18 % (0.78-2.58) 11/14/21 17:10 Son Bodies Not Reportable 11/12/21 05:10 Hem Pathologist Commnt No 11/12/21 05:10 PT 25.9 Sec. (12.2-14.9) H 11/14/21 17:10 INR 2.01 (0.87-1.13) H 11/14/21 17:10 APTT 41.1 Sec. (24.2-36.6) H 11/14/21 17:10 Sodium 147 mmol/L (137-145) H 11/14/21 17:10 Potassium 3.0 mmol/L (3.6-5.0) L 11/14/21 17:10 Chloride 107.5 mmol/L (98-107) H 11/14/21 17:10 Carbon Dioxide 25 mmol/L (22-30) 11/14/21 17:10 Anion Gap 18 mmol/L 11/14/21 17:10 BUN 48 mg/dL (7-17) H 11/14/21 17:10 Creatinine 1.2 mg/dL (0.6-1.2) 11/14/21 17:10 Estimated GFR 53 ml/min 11/14/21 17:10 BUN/Creatinine Ratio 40 % 11/14/21 17:10 Glucose 122 mg/dL (65-100) H 11/14/21 17:10 POC Glucose 135 mg/dL (70-105) H 11/15/21 05:12 Lactic Acid 1.90 mmol/L (0.7-2.0) 11/10/21 21:10 Calcium 8.3 mg/dL (8.4-10.2) L 11/14/21 17:10 Magnesium 1.90 mg/dL (1.7-2.3) 11/12/21 05:10 Iron 98 ug/dL (37-170) 11/14/21 17:10 TIBC 107 mcg/dL (250-450) L 11/14/21 17:10 Ferritin 1878.0 ng/mL (10.0-200.0) H 11/14/21 17:10 Total Bilirubin 4.30 mg/dL (0.1-1.2) H 11/14/21 17:10 Direct Bilirubin 3.8 mg/dL (0-0.2) H 11/14/21 17:10 Indirect Bilirubin 0.5 mg/dL 11/14/21 17:10 AST 119 units/L (5-40) H 11/14/21 17:10 ALT 82 units/L (7-56) H 11/14/21 17:10 Alkaline Phosphatase 340 units/L (35-129) H 11/14/21 17:10 Ammonia 18.0 umol/L (25-60) L 11/10/21 21:10 Lactate Dehydrogenase 576 units/L (91-180) H 11/14/21 17:10 Troponin T 0.018 ng/mL (0.00-0.029) 11/10/21 21:10 Total Protein 4.5 g/dL (6.3-8.2) L 11/14/21 17:10 Albumin 2.7 g/dL (3.9-5) L 11/14/21 17:10 Albumin/Globulin Ratio 1.5 % 11/14/21 17:10 Lipase 897 units/L (13-60) H 11/13/21 23:29 Plasma/Serum Alcohol < 0.01 % (0-0.07) 11/10/21 21:10 Hepatitis A IgM Ab Non-reactive (NonReactive) 11/11/21 08:04 Hep Bs Antigen Non-reactive (Negative) 11/11/21 08:04 Hep B Core IgM Ab Non-reactive (NonReactive) 11/11/21 08:04 Hepatitis C Antibody Non-reactive (NonReactive) 11/11/21 08:04 Pulido/IV: Voiding Method Incontinent Active Medications - Current Medications Current Medications: Generic Name Dose Route Start Last Admin Trade Name Freq PRN Reason Stop Dose Admin Acetaminophen 650 mg 11/10/21 22:52 Acetaminophen 325 Mg Tab PO Q4H PRN Pain MILD(1-3)/Fever >100.5/HERRERA Dextrose 50 ml 11/10/21 22:52 Dextrose 50% In Water (25gm) 50 Ml Syringe IV Q30MIN PRN Hypoglycemia Protocol Diltiazem HCl 120 mg 11/11/21 10:00 11/15/21 09:03 Diltiazem Cd 120 Mg Cap PO Not Given DAILY SIOBHAN Famotidine 20 mg 11/11/21 10:00 11/14/21 12:46 Famotidine 20 Mg/2 Ml Inj IV 20 mg DAILY SIOBHAN Administration Hydralazine HCl 20 mg 11/11/21 14:00 11/15/21 06:25 Hydralazine 20 Mg/1 Ml Inj IV Not Given Q4HR [facility] Hydrochlorothiazide 25 mg 11/11/21 10:00 11/15/21 09:03 Hydrochlorothiazide 25 Mg Tab PO Not Given QDAY [facility] Sodium Chloride 1,000 mls @ 100 mls/hr 11/10/21 23:00 11/15/21 08:54 Nacl 0.9% 1000 Ml IV 100 mls/hr DIRECT [facility] Administration Insulin Human Lispro 0 unit 11/11/21 00:00 11/15/21 09:34 Insulin Lispro 100 Unit/Ml SUB-Q Not Given Q6HR [facility] Protocol Losartan Potassium 50 mg 11/11/21 10:00 11/15/21 09:03 Losartan 50 Mg Tab PO Not Given QDAY [facility] Metoprolol Succinate 25 mg 11/11/21 10:00 11/15/21 09:03 Metoprolol Succinate Xl 25 Mg Tab PO Not Given BID [facility] Miscellaneous Medication 1 mg 11/11/21 10:00 Anastrozole [Arimidex] PO DAILY [facility] Morphine Sulfate 2 mg 11/10/21 22:52 11/14/21 22:37 Morphine 2 Mg/1 Ml Inj IV 2 mg Q4H PRN Administration Pain, Moderate (4-6) Morphine Sulfate 4 mg 11/10/21 22:52 11/11/21 09:51 Morphine 4 Mg/1 Ml Inj IV 4 mg Q4H PRN Administration Pain , Severe (7-10) Ondansetron HCl 4 mg 11/10/21 22:52 11/11/21 09:51 Ondansetron 4 Mg/2 Ml Inj IV 4 mg Q8H PRN Administration Nausea And Vomiting Pantoprazole Sodium 40 mg 11/13/21 20:00 11/15/21 08:52 Pantoprazole 40 Mg Tab PO Not Given BIDAC [facility] Phytonadione 10 mg 11/15/21 10:00 Phytonadione 10 Mg/1 Ml (Adult Only)*Injection* SUB-Q 11/15/21 13:00 ONCE@1000 [facility] Sodium Chloride 10 ml 11/11/21 10:00 11/14/21 21:36 Sodium Chloride 0.9% 10 Ml Flush Syringe IV 10 ml BID [facility] Administration Sodium Chloride 10 ml 11/10/21 22:52 Sodium Chloride 0.9% 10 Ml Flush Syringe IV PRN PRN LINE FLUSH Nutrition/Malnutrition Assess - Dietary Evaluation Nutrition/Malnutrition Findings: Nutrition Notes Start: 11/11/21 14:39 Freq: Status: Active Protocol: Document 11/13/21 17:39 CM (Rec: 11/13/21 17:47 CM [email or web address]) Co-Sign 11/13/21 17:39 WW Nutrition Notes Need for Assessment generated from: endorsement clerk,MST Initial or Follow up Brief Note Current Diagnosis Acute Kidney Injury,Diabetes, Hypertension Other Pertinent Diagnosis AMS, LLL mass, Pancreatitis, Elevated LFTs h/o breast Ca Current Diet Clear liquid diet Labs/Tests 11/13: K 3.2 BUN 37 Cr 1.3 Pertinent Medications Reviewed Height 5 ft Weight 43.998 kg Usual Body Weight 59.09 kg [place] Body Weight (kg) 45.45 BMI 18.9 Subjective/Other Information RD follow-up per protocol. Pt out of room to MRI at time of visit. Discussed wt loss and cachexia with pt's sons. Difficulty chewing/swallowing, abdominal pain, dysgeusia, dysosmia, and xerostomia concerns mentioned. Son's reported pt has not consumed but a few bites here and there x 3months. Recommend advancing to pureed diet when feasible with nutrition supplementation. Percent of energy/protein needs met: Clear Liquid Diet provides 590kcal/16g PRO q day Burn Absent Trauma Absent GI Symptoms Other Difficulty In Swallowing,Chewing Current % PO Negligible #1 Nutrition Diagnosis Malnutrition Diagnosis Progress(for reassessment Continues documentation) Nutrition Intervention Change Diet Order: Recommend advancing diet to pureed diet when medically feasible. Nutrition Support: Consider EN support to meet nutrient needs and prevent further wt loss Add Supplement/Snack (indicate name/kcal Glucerna /protein ) Provides kCal: 660 Provides Protein (gm) 30 Goal #1 Pt diet to advance past clear liquid diet within next 24-48 hours Goal #2 Wt maintenance and/or gain Follow-Up By: 11/15/21 Additional Comments Monitor %PO intake, wt status, nutrition-related labs
[2021-11-15] MEDS: FAMOTIDINE 20 MG/2 ML INJ IV SCH (11:04)
--- NOTE | 2021-11-15 12:28 | Progress Note ---
Assessment and Plan 76 y/o female with left hilar mass, concern for malignancy, primary lung vs met. 11/15/21: Bronch cancelled for today as biopsy cannot be done with that INR. Follow up Heme recs. Will try to put on the schedule for Thursday. 11/14/21: Please repeat INR today and recheck again in the am. If greater than 2, please give FFP and even consider a dose of Vitamin K (patient is not actively bleeding but would like to be aggressive given her age and frail state and lack of thoracic surgery back up here). Goal would be to have the INR less than 2 to safely proceed with biopsy. NPO after midnight. 11/13/21: biposy planned for Thursday at 1300. Follow up MRI results. Family wishes for biopsy results to be sent to [facility] as well as a lung doc at [facility]. Please check labs Thursday am so that anesthesia can assess. 1. Patient needs tissue biopsy. 2. Should have been done at [facility] as they have access to EBUS but pulmonary was not consulted then 3. WIll attempt blind needle biopsy here or if endobronchial lesion is present will obtain samples from that. 4. Earliest this can happen would be Thursday 5. MRI abdomen negative 6. Guarded to poor prognosis. Would suggest if possible to get an MRI of head. May not be feasible as abdomen was compromised by patient breathing pattern. CT showed no edema or increased intracranial pressure so should be safe. Currently on schedule for 1pm Thursday. Please make NPO after Midnight on . Subjective Date of service: 11/15/21 Interval history: INR came back late yesterday at 2. No therapy available prior to procedure so had to be cancelled. Discussed with family at bedside. Heme has seen and assessed. Objective Vital Signs - 12hr 11/15/21 11/15/21 11/15/21 03:30 05:17 05:29 Temperature 97.6 F Pulse Rate 98 H 99 H 93 H Respiratory 17 Rate Blood Pressure 90/51 130/72 121/67 O2 Sat by Pulse 99 100 96 Oximetry 11/15/21 11/15/21 07:19 11:24 Temperature 97.5 F L 98.3 F Pulse Rate 101 H 108 H Respiratory 20 22 Rate Blood Pressure 140/61 103/69 O2 Sat by Pulse 100 100 Oximetry Constitutional: no acute distress, other (cachectic and confused.) Eyes: non-icteric ENT: oropharynx moist Neck: supple Effort: mildly labored Ascultation: Bilateral: clear Percussion: Bilateral: not dull Tactile fremitus: Bilateral: normal Cardiovascular: regular rate and rhythm Neurologic: unable to assess, other (very slowed mentation) CBC and BMP: 11/14/21 17:10 11/14/21 17:10 ABG, PT/INR, D-dimer: PT/INR, D-dimer PT 25.9 Sec. (12.2-14.9) H 11/14/21 17:10 INR 2.01 (0.87-1.13) H 11/14/21 17:10 Abnormal lab findings: Abnormal Labs 11/10/21 11/10/21 11/10/21 19:26 19:26 21:10 RBC 3.06 L Hgb 9.9 L Hct 28.2 L MCHC 35 H RDW 16.0 H Seg Neutrophils % Seg Neuts % (Manual) 94.0 H Lymphocytes % (Manual) 2.0 L Nucleated RBC % Seg Neutrophils # Seg Neutrophils # Man Lymphocytes # (Manual) 0.2 L PT 19.7 H INR 1.44 H APTT Sodium Potassium 2.9 L* Chloride 92.5 L Carbon Dioxide BUN 30 H Creatinine 1.5 H Glucose 134 H POC Glucose Calcium TIBC Ferritin Total Bilirubin 2.60 H Direct Bilirubin AST 135 H ALT 84 H Alkaline Phosphatase 311 H Ammonia Lactate Dehydrogenase Total Protein 5.3 L Albumin 3.2 L Lipase 2550 H 11/10/21 11/11/21 11/11/21 21:10 03:43 03:43 RBC 3.14 L Hgb 9.9 L Hct 29.2 L MCHC RDW 16.0 H Seg Neutrophils % Seg Neuts % (Manual) 93.0 H Lymphocytes % (Manual) 1.0 L Nucleated RBC % 2.0 H Seg Neutrophils # Seg Neutrophils # Man 8.2 H Lymphocytes # (Manual) 0.1 L PT INR APTT Sodium Potassium 3.5 L D Chloride 95.0 L Carbon Dioxide 31 H BUN 32 H Creatinine 1.3 H Glucose 126 H POC Glucose Calcium TIBC Ferritin Total Bilirubin Direct Bilirubin AST ALT Alkaline Phosphatase Ammonia 18.0 L Lactate Dehydrogenase Total Protein Albumin Lipase 11/11/21 11/12/21 11/12/21 08:04 00:26 05:10 RBC 3.10 L Hgb 9.7 L Hct 28.8 L MCHC RDW 16.0 H Seg Neutrophils % Seg Neuts % (Manual) 94.0 H Lymphocytes % (Manual) 1.0 L Nucleated RBC % 1.0 H Seg Neutrophils # Seg Neutrophils # Man 7.8 H Lymphocytes # (Manual) 0.1 L PT INR APTT Sodium Potassium Chloride Carbon Dioxide BUN Creatinine Glucose POC Glucose 160 H Calcium TIBC Ferritin Total Bilirubin 2.70 H Direct Bilirubin 2.2 H AST 110 H ALT 82 H Alkaline Phosphatase 312 H Ammonia Lactate Dehydrogenase Total Protein 5.2 L Albumin 3.0 L Lipase 11/12/21 11/12/21 11/12/21 05:10 06:11 23:43 RBC Hgb Hct MCHC RDW Seg Neutrophils % Seg Neuts % (Manual) Lymphocytes % (Manual) Nucleated RBC % Seg Neutrophils # Seg Neutrophils # Man Lymphocytes # (Manual) PT INR APTT Sodium Potassium 3.2 L Chloride Carbon Dioxide BUN 37 H Creatinine 1.3 H Glucose 213 H POC Glucose 203 H 130 H Calcium TIBC Ferritin Total Bilirubin 3.80 H Direct Bilirubin AST 99 H ALT 70 H Alkaline Phosphatase 297 H Ammonia Lactate Dehydrogenase Total Protein 4.8 L Albumin 2.8 L Lipase 2111 H 11/13/21 11/13/21 11/13/21 05:18 23:29 23:29 RBC 2.52 L Hgb 8.0 L Hct 23.2 L MCHC RDW 16.4 H Seg Neutrophils % Seg Neuts % (Manual) Lymphocytes % (Manual) Nucleated RBC % Seg Neutrophils # Seg Neutrophils # Man Lymphocytes # (Manual) PT 25.5 H INR 1.97 H APTT Sodium Potassium Chloride Carbon Dioxide BUN Creatinine Glucose POC Glucose 128 H Calcium TIBC Ferritin Total Bilirubin Direct Bilirubin AST ALT Alkaline Phosphatase Ammonia Lactate Dehydrogenase Total Protein Albumin Lipase 11/13/21 11/13/21 11/14/21 23:29 23:32 05:14 RBC Hgb Hct MCHC RDW Seg Neutrophils % Seg Neuts % (Manual) Lymphocytes % (Manual) Nucleated RBC % Seg Neutrophils # Seg Neutrophils # Man Lymphocytes # (Manual) PT INR APTT Sodium 146 H Potassium 3.3 L Chloride Carbon Dioxide BUN 47 H Creatinine 1.4 H Glucose 128 H POC Glucose 136 H 143 H Calcium 8.2 L TIBC Ferritin Total Bilirubin 3.80 H Direct Bilirubin AST 104 H ALT 73 H Alkaline Phosphatase 296 H Ammonia Lactate Dehydrogenase Total Protein 4.4 L Albumin 2.6 L Lipase 897 H 11/14/21 11/14/21 11/14/21 11:17 17:06 17:10 RBC 2.62 L Hgb 8.2 L Hct 24.0 L MCHC RDW 16.1 H Seg Neutrophils % 78.5 H Seg Neuts % (Manual) Lymphocytes % (Manual) Nucleated RBC % Seg Neutrophils # 8.3 H Seg Neutrophils # Man Lymphocytes # (Manual) PT INR APTT Sodium Potassium Chloride Carbon Dioxide BUN Creatinine Glucose POC Glucose 129 H 112 H Calcium TIBC Ferritin Total Bilirubin Direct Bilirubin AST ALT Alkaline Phosphatase Ammonia Lactate Dehydrogenase Total Protein Albumin Lipase 11/14/21 11/14/21 11/14/21 17:10 17:10 17:10 RBC Hgb Hct MCHC RDW Seg Neutrophils % Seg Neuts % (Manual) Lymphocytes % (Manual) Nucleated RBC % Seg Neutrophils # Seg Neutrophils # Man Lymphocytes # (Manual) PT 25.9 H INR 2.01 H APTT 41.1 H Sodium 147 H Potassium 3.0 L Chloride 107.5 H Carbon Dioxide BUN 48 H Creatinine Glucose 122 H POC Glucose Calcium 8.3 L TIBC 107 L Ferritin 1878.0 H Total Bilirubin Direct Bilirubin AST ALT Alkaline Phosphatase Ammonia Lactate Dehydrogenase 576 H Total Protein Albumin Lipase 11/14/21 11/14/21 11/15/21 17:10 23:07 05:12 RBC Hgb Hct MCHC RDW Seg Neutrophils % Seg Neuts % (Manual) Lymphocytes % (Manual) Nucleated RBC % Seg Neutrophils # Seg Neutrophils # Man Lymphocytes # (Manual) PT INR APTT Sodium Potassium Chloride Carbon Dioxide BUN Creatinine Glucose POC Glucose 145 H 135 H Calcium TIBC Ferritin Total Bilirubin 4.30 H Direct Bilirubin 3.8 H AST 119 H ALT 82 H Alkaline Phosphatase 340 H Ammonia Lactate Dehydrogenase Total Protein 4.5 L Albumin 2.7 L Lipase
--- NOTE | 2021-11-15 12:28 | Electrocardiograph Report ---
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
--- NOTE | 2021-11-15 12:45 | Anesthesia Day of Surgery ---
Anesthesia Day of Surgery - Day of Surgery Patient Examined: Yes Patient H&P Reviewed: Yes Patient is NPO: Yes
--- NOTE | 2021-11-15 12:47 | Anesthesia Consultation ---
Anesthesia Consult and Med Hx - Airway Anesthetic Teeth Evaluation: Edentulous ROM Head & Neck: Inadequate Mental/Hyoid Distance: Inadequate - Pulmonary Exam CTA: No - Pre-Operative Health Status ASA Pre-Surgery Classification: ASA4 Proposed Anesthetic Plan: MAC (Breast CA, pulmonary mass) - Pulmonary Hx Smoking: Yes (STOPPED 2002) Hx Sleep Apnea: No (HOA PRE SCREEN LOW RISK) - Cardiovascular System Hx Hypertension: Yes - Central Nervous System Hx Psychiatric Problems: No - Endocrine Hx Non-Insulin Dependent Diabetes: Yes - Other Systems Hx Alcohol Use: Yes (OCCAS) Hx Substance Use: No Hx Cancer: No
[2021-11-15] MEDS ORDERED: MIDAZOLAM 2 MG/2 ML INJ ONE (12:50)
--- NOTE | 2021-11-15 12:50 | Operative Report ---
Operative Report Operative Report: DOS: 11/15/21 SURGEON: Gatito Mathew MD EGD with biopsy REPORT PREOPERATIVE DIAGNOSIS and POSTOPERATIVE DIAGNOSIS: Abdominal pain ESTIMATED BLOOD LOSS: minimal DESCRIPTION OF PROCEDURE: A high-resolution EGD scope was passed through the oropharynx, esophagus, stomach, and second portion of duodenum. The scope was carefully withdrawn. Retroflexion was performed in the stomach. At the end of the procedure, the scope was cleaned using normal technique. Vital signs monitored continuously throughout. SEDATION: Provided by [facility]. COMPLICATIONS: None. FINDINGS: Normal second portion of the duodenum Multiple superficial ulcers in the first part of the duodenum ranging in size from 1 to 6 mm, clean-based, no high risk stigmata for bleeding Multiple superficial ulcers in the stomach, mostly in the antrum but a few small ones in the body as well. Ranging in size from 2 to 8 mm. clean-based, no high risk stigmata for bleeding. Biopsies were taken to rule out H. Pylori infection. A total of 5 biopsies were taken, 2 from the antrum, 1 from the incisura, 2 from the body, biopsies also taken from ulcer edges rule out dysplasia. Severe gastritis throughout the entire stomach Z-line regular at 40 cm from incisors RECOMMENDATIONS: Follow-up pathology results Continue Proton pump inhibitor BID and change patient's famotidine from 20 mg to 40 mg, continue clinical monitoring May resume diet from GI standpoint. Continue to monitor hemoglobin.
--- NOTE | 2021-11-15 14:43 | Post Anesthesia Evaluation ---
- Post Anesthesia Evaluation Patient Participated: Yes Airway Patent: Yes Stable Respiratory Function: Yes Nausea/Vomiting: No Temp > 96.8F: Yes Pain Manageable: Yes Adequeate Hydration: Yes Anesthesia Complications: No
[2021-11-15 20:34] VITALS: BP 152/69
[2021-11-15] MEDS: MORPHINE 2 MG/1 ML INJ IV PRN (20:34)
[2021-11-15] MEDS ORDERED: FAMOTIDINE 20 MG TAB PO SCH (22:00)
[2021-11-27 12:11] LABS: Hemoglobin A2 Prime SEE SCANNED RESULT; Hemoglobin Barts SEE SCANNED RESULT; Hemoglobin E SEE SCANNED RESULT; Hemoglobin G SEE SCANNED RESULT; Hemoglobin Lepore SEE SCANNED RESULT; Hemoglobin O-Arab SEE SCANNED RESULT
[2021-11-27 12:12] LABS: IEF Confirm SEE SCANNED RESULT; Interpretation SEE SCANNED RESULT; Sickle Solubility Test SEE SCANNED RESULT
== END 2021-11-15 23:04 | disposition home or self-care (01) | DRG 871 ==
LOC: ED 18:50 → 4A 22:52
PROVIDERS: ADMIT Hospitalist; ATTEND Hospitalist
DX: A41.9 Sepsis, unspecified organism (principal); G92.8 Other toxic encephalopathy; K85.90 Acute pancreatitis without necrosis or infection, unspecified; J96.01 Acute respiratory failure with hypoxia; R65.21 Severe sepsis with septic shock; D68.9 Coagulation defect, unspecified; E87.1 Hypo-osmolality and hyponatremia; E46 Unspecified protein-calorie malnutrition; N17.9 Acute kidney failure, unspecified; Z68.1 Body mass index [BMI] 19.9 or less, adult; E87.6 Hypokalemia; R74.01 Elevation of levels of liver transaminase levels; I10 Essential (primary) hypertension; E11.9 Type 2 diabetes mellitus without complications; R91.8 Other nonspecific abnormal finding of lung field; D64.9 Anemia, unspecified; Z66 Do not resuscitate; K74.60 Unspecified cirrhosis of liver; K76.89 Other specified diseases of liver; M19.90 Unspecified osteoarthritis, unspecified site; R13.10 Dysphagia, unspecified; K29.70 Gastritis, unspecified, without bleeding; C50.919 Malignant neoplasm of unspecified site of unspecified female breast; K75.9 Inflammatory liver disease, unspecified; K25.9 Gastric ulcer, unspecified as acute or chronic, without hemorrhage or perforation; D70.9 Neutropenia, unspecified; Z85.3 Personal history of malignant neoplasm of breast; Z82.49 Family history of ischemic heart disease and other diseases of the circulatory system
CPT/HCPCS: 36415; 70450; 70551; 71045; 74176; 74183; 76705; 80048; 80053; 80074; 80076; 80320; 82140; 82378; 82728; 82962; 83550; 83615; 83690; 83735; 84484; 85007; 85025; 85027; 85045; 85610; 85730; 88305; 88342; 93005; 93306; 94760; 96374; 99285; G0378; J3490; A9575; C8929; G0480; J0360; J2250; J2270; J2405; J3430; J3480; J7030